=== PATIENT | female | born 1955 | race Two or more races ===

== ENCOUNTER → 2017-03-14 | Outpatient (REF) | payer BC ==
[2017-03-14 19:28] LABS: ALBUMIN 3.7 GM/DL (3.2-5.2); ALBUMIN/GLOBULIN RATIO 0.86 (1.00-1.93); ALKALINE PHOSPHATASE 108 U/L (45-117); ALT/SGPT 21 U/L (12-78); ANION GAP 7 MEQ/L (8-16); AST/SGOT 18 U/L (15-37); BILIRUBIN,TOTAL 0.3 MG/DL (0.2-1.0); BLOOD UREA NITROGEN 12 MG/DL (7-18); CALCIUM LEVEL 9.3 MG/DL (8.8-10.2); CARBON DIOXIDE LEVEL 33 MEQ/L (21-32); CHLORIDE LEVEL 98 MEQ/L (98-107); CHOLESTEROL LEVEL 233 MG/DL (<200); CREATININE FOR GFR 0.79 MG/DL (0.55-1.02); GLOMERULAR FILTRATION RATE > 60.0 (>45); GLUCOSE, FASTING 80 MG/DL (80-110); SODIUM LEVEL 138 MEQ/L (136-145); TRIGLYCERIDES LEVEL 131 MG/DL (<150)
[2017-03-14 19:43] LABS: BASO # 0.1 10^3/uL (0.0-0.2); BASO % 0.8 % (0.0-1.0); EOS # 0.1 10^3/uL (0.0-0.50); EOS % 1.2 % (0.0-3.0); IMMATURE GRANULOCYTE % 0.5 % (0-0); LYMPH # 2.9 10^3/uL (1.5-4.5); LYMPH % 29.6 % (24.0-44.0); MEAN CORPUSCULAR HEMOGLOBIN 31.6 pg (27.0-33.0); MEAN CORPUSCULAR HGB CONC 32.2 g/dl (32.0-36.5); MEAN CORPUSCULAR VOLUME 98.1 fl (80.0-96.0); MONO # 0.5 10^3/uL (0.0-0.8); MONO % 4.6 % (0.0-5.0); NEUTROPHILS # 6.3 10^3/uL (1.8-7.7); NEUTROPHILS % 63.3 % (36.0-66.0); PLATELET COUNT, AUTOMATED 209 10^3/uL (150-450); PLT CLUMPS? POS FLAG; RED CELL DISTRIBUTION WIDTH 14.1 % (11.5-14.5); WHITE BLOOD COUNT 9.9 10^3/uL (4.0-10.0)
== END ==
LOC: M SFHCADAM 10:25
PROVIDERS: ATTEND Physician Assistant Medical
DX: E66.01 Morbid (severe) obesity due to excess calories (principal); F17.210 Nicotine dependence, cigarettes, uncomplicated

== ENCOUNTER → 2017-03-14 | Outpatient (CLI) | payer BC ==
--- NOTE | 2017-03-14 14:27 | REP ---
PA and lateral chest: There are no comparisons. There are no infiltrates or effusions. There are no masses. The lung norris are clear. Cardiac size is normal. The tiera, mediastinum, and bony thorax are unremarkable for patient age. Impression: Negative PA and lateral chest. Signed by Trino Sandres MD 03/14/2017 02:18 P
== END ==
LOC: M ADAMS 11:24
PROVIDERS: ATTEND Physician Assistant Medical
DX: F17.210 Nicotine dependence, cigarettes, uncomplicated (principal)

== ENCOUNTER → 2017-05-22 | Outpatient (REF) | payer BC ==
[2017-05-22 20:38] LABS: FREE T4 0.74 NG/DL (0.76-1.46)
== END ==
LOC: M SFHCADAM 11:46
PROVIDERS: ATTEND Physician Assistant Medical
DX: E03.9 Hypothyroidism, unspecified (principal)

== ENCOUNTER → 2019-10-12 | Outpatient (REF) | payer BC | LOC: M SFHCWAGY 08:34 | PROVIDERS: ATTEND Nurse Practitioner Women's Health | DX: N95.0 Postmenopausal bleeding (principal) | CPT/HCPCS: 87624; G0123 ==

== ENCOUNTER 2020-07-08 16:11 | Inpatient (IN) | payer BC ==
[~2020-07-08] VITALS: Ht 157.5 cm; Wt 84.5 kg
[2020-07-08] MEDS ORDERED: ISOVUE-370 76% 100ML VIAL As Ordered ONE (16:31)
--- NOTE | 2020-07-08 17:05 | REP ---
INDICATION: CVA - Nursing interventions must not delay CT. COMPARISON: None. TECHNIQUE: CT BRAIN PERFORMED IN THE AXIAL PLANE. CORONAL RECONSTRUCTION IMAGES ARE PERFORMED. FINDINGS: There is mild atrophy. There is no midline shift or mass effect. There are mild patchy periventricular small vessel ischemic changes the white matter likely chronic in nature. There is no acute intracranial hemorrhage or extra-axial fluid collection. The visualized osseous structures are intact. The visualized paranasal sinuses and mastoid air cells appear clear. There minor vascular calcifications of the carotid siphons. IMPRESSION: No acute intracranial hemorrhage, midline shift or mass effect. Mild chronic changes. <Electronically signed by Trino Lynn > 07/08/20 [id number]
--- NOTE | 2020-07-08 17:12 | REP ---
INDICATION: CVA - Nursing interventions must not delay CT. COMPARISON: None. TECHNIQUE: CT contrast dose: 100 ml of intravenous Isovue 370. CT technique: Helical scanning is acquired. 2 mm high resolution axial images are reformatted. In addition maximal intensity projection, and complex plane multiplanar re-formation images are generated. Surface rendered color 3-D images are generated. FINDINGS: The aortic arch is normal in caliber with mild atherosclerotic calcification. The brachiocephalic artery demonstrates mild calcification at its origin and is widely patent. The right common carotid artery is widely patent. Right internal carotid artery is widely patent. There is no evidence of significant stenosis of the right ICA. The left common carotid artery is widely patent. The left internal carotid artery is widely patent with no significant stenosis. Both vertebral arteries are patent and symmetrical in appearance. Emphysematous changes are noted in both lungs. There are mild degenerative changes of the cervical spine. IMPRESSION: No evidence of occlusion or significant stenosis of the internal carotid arteries bilaterally. <Electronically signed by Trino Lynn > 07/08/20 2217
[2020-07-08 17:18] LABS: BASO # 0.1 10^3/uL (0.0-0.2); BASO % 0.7 % (0.0-1.0); EOS # 0.2 10^3/uL (0.0-0.5); EOS % 1.7 % (0.0-3.0); HEMATOCRIT 35.6 % (36.0-47.0); HEMOGLOBIN 11.2 g/dl (12.0-15.5); LYMPH # 1.6 10^3/uL (1.5-5.0); LYMPH % 15.3 % (24.0-44.0); MEAN CORPUSCULAR HEMOGLOBIN 30.9 pg (27.0-33.0); MEAN CORPUSCULAR HGB CONC 31.5 g/dl (32.0-36.5); MEAN CORPUSCULAR VOLUME 98.1 fl (80.0-96.0); MONO # 0.6 10^3/uL (0.0-0.8); MONO % 5.5 % (0.0-5.0); NEUTROPHILS # 8.1 10^3/uL (1.5-8.5); NEUTROPHILS % 76.2 % (36.0-66.0); PLATELET COUNT, AUTOMATED 359 10^3/uL (150-450); RED BLOOD COUNT 3.63 10^6/uL (4.00-5.40); WHITE BLOOD COUNT 10.6 10^3/uL (4.0-10.0)
--- NOTE | 2020-07-08 17:18 | REP ---
INDICATION: CVA - Nursing interventions must not delay CT. COMPARISON: None. TECHNIQUE: CT contrast dose: 100 ml of intravenous Isovue 370. CT technique: Helical scanning is acquired. 2 mm axial images are reformatted. Maximal intensity projection and multiplanar re-formation images are generated along with 3-D surface rendered color imaging which is viewed rotational. FINDINGS: The intracranial internal carotid arteries are symmetrical and widely patent bilaterally. The anterior, middle and posterior cerebral arteries are symmetrical and widely patent with no definite intracranial arterial stenosis and no evidence of intracranial arterial occlusion. Anterior communicating arteries are symmetrical and patent. Basilar artery is patent with no stenosis or occlusion. There is no definite aneurysm or AVM. IMPRESSION: No evidence of intracranial major vessel occlusion or significant stenosis. <Electronically signed by Trino Lynn > 07/08/20 [id number]
[2020-07-08 17:23] LABS: PARTIAL THROMBOPLASTIN TIME 23.9 SECONDS (24.2-38.5)
--- NOTE | 2020-07-08 17:31 | ECGEPIP ---
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
[2020-07-08 17:32] LABS: CK-MB VALUE MASS 1.8 NG/ML (<3.6); CPK CREATINE PHOSPHOKINASE 118 U/L (26-192); MB/CK RELATIVE INDEX 1.53 (< OR =4); TROPONIN I < 0.02 NG/ML (< 0.10)
[2020-07-08] MEDS ORDERED: ASPI81CH33 PO (17:45)
[2020-07-08] MEDS ORDERED: LIPI80TA PO (17:46)
[2020-07-08] MEDS ORDERED: CLOP75TA2 PO (17:46)
[2020-07-08] MEDS ORDERED: LEVO50CA PO (17:47)
[2020-07-08] MEDS ORDERED: NORE1TAB12 PO (17:48)
[2020-07-08] MEDS ORDERED: NICO7PA TOP (17:48)
--- NOTE | 2020-07-08 17:52 | REP ---
INDICATION: CVA. COMPARISON: 03/14/2017. TECHNIQUE: SINGLE PORTABLE AP VIEW OF THE CHEST WAS PERFORMED. FINDINGS: There is no acute infiltrate. There is mild interstitial fibrotic change bilaterally. There is mild cardiomegaly. The mediastinal silhouette is unremarkable. IMPRESSION: NO ACUTE PULMONARY DISEASE. Mild cardiomegaly. <Electronically signed by Trino Lynn > 07/08/20 [id number]
[2020-07-08 18:00] LABS: RSV AMPLIFICATION NEGATIVE (NEGATIVE)
[2020-07-08] MEDS ORDERED: POTASSIUM CHLORIDE 10 MEQ SR TABLET PO ONE (18:00)
[2020-07-08 18:03] LABS: INR 0.95; PROTHROMBIN TIME 12.9 SECONDS (12.5-14.3)
[2020-07-08] MEDS ORDERED: SYNT50TA PO (18:09)
[2020-07-08] MEDS ORDERED: NORE5TAB PO (18:09)
--- NOTE | 2020-07-08 19:51 | HPEPDOC ---
[facility] Medical History & Physical Date of Admission Jul 08, 2020 Date of Service: Jul 08, 2020 History and Physical CHIEF COMPLAINT: slurred speech, b/l ue and le numbness at 3-3:30pm HISTORY OF PRESENT ILLNESS: 64 y/o F transferred from [facility] ER to [facility] 2 weeks ago for Facial drooping, slurred speech / left anterofrontal CVA, and sent home w/o residual neurologic deficits with ASA and plavix. Prior to hospital discharge, pt developed vaginal bleeding, found to have a large uterine mass, evaluated by [facility] shirt creaser s/p hysteroscopy with biopsy. Pt was instructed to call on Friday07/10/20 to discuss results of possible malignancy. Patient lives with her , daughter,and was noted to have slurred speech around 1pm when talking to her daughter without facial drooping or drooling. At around 3-3:30 pm, patient was in the living room, sitting, watching TV when she c/o b/l hand and b/l le numbness. Another daughter who was just heading home from work called and told her sister to call EMS to bring the patient to the ER. She has been compliant with her ASA and plavix and has not missed a dose. When EMS arrived,patient had difficulty getting up because both legs felt numb. She had resolution of her symptoms when she arrived in the ER. CT head angio, CT brain negative for CVA. glucose 128. EKG-sinus 72 bpm. Hospitalist was called to admit for recurrent TIA and to r/o CVA. 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 SOCIAL HISTORY: lives at home w , and daughter. full code . 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 previous smoker, quit 2weeks ago. denies etoh or recreational drug use FAMILY HISTORY: Father: cad, dm2, left bka due to complications of DM, Mother:cva, age 62 ALLERGIES: Please see below. REVIEW OF SYSTEMS:12point ROS negative aside from +findings on HPI HOME MEDICATIONS: Please see below. PHYSICAL EXAMINATION: VITAL SIGNS: see below GENERAL APPEARANCE: aaox3 no slurring of speech or facial drooping no distress. answers questions appropriately HEENT: PERRLA EOMI face symmetric tongue is midline. no jvd,thyromegaly, or cervical LAD CARDIOVASCULAR: S1S2 RRR no murmurs noted LUNGS: AEBE CTAB no wheezing, rales, or rhonchi ABDOMEN: +bs soft obese nontender nondistended no HSM EXTREMITIES: no cyanosis or clubbing NEUROLOGICAL: no facial asymmetry no drooling PERRLA EOMI no dysmetria on finger to nose testing dtr's intact b/l ue, le. no pronator drift. motor function 5/5 x 4 extremities no sensory disturbance b/l UE/LE. LABORATORY DATA: See below. 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 COMPARISON: None. TECHNIQUE: CT BRAIN PERFORMED IN THE AXIAL PLANE. CORONAL RECONSTRUCTION IMAGES ARE PERFORMED. FINDINGS: There is mild atrophy. There is no midline shift or mass effect. There are mild patchy periventricular small vessel ischemic changes the white matter likely chronic in nature. There is no acute intracranial hemorrhage or extra-axial fluid collection. The visualized osseous structures are intact. The visualized paranasal sinuses and mastoid air cells appear clear. There minor vascular calcifications of the carotid siphons. IMPRESSION: No acute intracranial hemorrhage, midline shift or mass effect. Mild chronic changes. <Electronically signed by Trino Lynn > 07/08/20 1701 07/08/20 [id number]: Trino Lynn MD, MD 07/08/20 165 DT: OLGA 07/08/20 1701 DS: DEAN 07/08/201656 CTA NECK 07/08/20 INDICATION: CVA - Nursing interventions must not delay CT. COMPARISON: None. TECHNIQUE: CT contrast dose: 100 ml of intravenous Isovue 370. CT technique: Helical scanning is acquired. 2 mm high resolution axial images are reformatted. In addition maximal intensity projection, and complex plane multiplanar re-formation images are generated. Surface rendered color 3-D images are generated. The aortic arch is normal in caliber with mild atherosclerotic calcification. The brachiocephalic artery demonstrates mild calcification at its origin and is widely patent. The right common carotid artery is widely patent. Right internal carotid artery is widely patent. There is no evidence of significant stenosis of the right ICA. The left common carotid artery is widely patent. The left internal carson tid artery is widely patent with no significant stenosis. Both vertebral arteries are patent and symmetrical in appearance. Emphysematous changes are noted in both lungs. There are mild degenerative changes of the cervical spine. IMPRESSION: No evidence of occlusion or significant stenosis of the internal carotid arteries bilaterally. <Electronically signed by Trino Lynn > 07/08/20 1708 07/08/20 CT ANGIO HEAD INDICATION: CVA - Nursing interventions must not delay CT. COMPARISON: None. TECHNIQUE: CT contrast dose: 100 ml of intravenous Isovue 370. CT technique: Helical scanning is acquired. 2 mm axial images are reformatted. Maximal intensity projection and multiplanar re-formation images are generated along with 3-D surface rendered color imaging which is viewed rotational. FINDINGS: The intracranial internal carotid arteries are symmetrical and widely patent bilaterally. The anterior, middle and posterior cerebral arteries are symmetrical and widely patent with no definite intracranial arterial stenosis and no evidence of intracranial arterial occlusion. Anterior communicating arteries are symmetrical and patent. Basilar artery is patent with no stenosis or occlusion. There is no definite aneurysm or AVM. IMPRESSION: No evidence of intracranial major vessel occlusion or significant stenosis. <Electronically signed by Trino Lynn > 07/08/20 1715 CXR 07/08/20 TECHNIQUE: SINGLE PORTABLE AP VIEW OF THE CHEST WAS PERFORMED. FINDINGS: There is no acute infiltrate. There is mild interstitial fibrotic change bilaterally. There is mild cardiomegaly. The mediastinal silhouette is unremarkable. IMPRESSION: NO ACUTE PULMONARY DISEASE. Mild cardiomegaly. <Electronically signed by Trino Lynn > 07/08/20 0087 ASSESSMENT/PLAN: 64 y/o F transferred from [facility] ER to [facility] 2 weeks ago for Facial drooping, slurred speech / left anterofrontal CVA, and sent home w/o residual neurologic deficits with ASA and plavix. Prior to hospital discharge, pt developed vaginal bleeding, found to have a large uterine mass, evaluated by [facility] shirt creaser s/p hysteroscopy with biopsy. Pt was instructed to call on Friday07/10/20 to discuss results of possible malignancy. Patient lives with her , daughter,and was noted to have slurred speech around 1pm when talking to her daughter without facial drooping or drooling. At around 3-3:30 pm, herminia lindsay was in the living room, sitting, watching TV when she c/o b/l hand and b/l le numbness. Another daughter who was just heading home from work called and told her sister to call EMS to bring the patient to the ER. She has been compliant with her ASA and plavix and has not missed a dose. When EMS arrived,patient had difficulty getting up because both legs felt numb. She had resolution of her symptoms when she arrived in the ER. CT head angio, CT brain negative for CVA. glucose 128. EKG-sinus 72 bpm. Hospitalist was called to admit for recurrent TIA and to r/o CVA. TIA -resolved neurologic symptoms on ED arrival. admitted as an inpatient for two midnights since she will require a transesophageal echo scheduled for Friday by Dr. Flowers to rule out thrombus. telemetry monitoring, continue ASA and plavix despite recent vaginal bleed 2 weeks ago, neurologic checks q4hrs, MRI/MRA brai n/MRA carotids, 2D echo w bubble study, hypercoagulable state workup, Neurology consultation, and obtain [facility] inpt records 2 weeks ago. DVT prophylaxis. statin. -due to recurrent neurologic events, pt should be referred to generator worker Dr. Richmond for implantable event recorder to evaluate for crptogenic stroke to rule out underlying Afib or Aflutter. History of Left Anterofrontal CVA 2weeks ago -no residual neurologic deficits -on ASA and plavix Vaginal Bleed/Uterine Mass -evaluated with biopsy hysteroscopy at [facility]. obtain pathology /cytology report Previous Tobacco Abuse -quit 2 weeks ago. nicotine replacement therapy Dyslipidemia -on statin. check lipid profile Obesity -check a1c, optimize bp control and treat hyperlipidemia Hypothyroidism -resume synthroid. check tsh Cardiomegaly -check 2D echo Varicose Veins -s/p stripping Vitamin D deficiency -resume home meds Diet: 2 gram sodium, low fat low chol diet Code status: full code DVT prophylaxis: lovenox. disposition: 2-3 days. needs GOPAL on Friday afternoon after 5pm (Dr. Bach) Vital Signs Vital Signs Date Time Temp Pulse Resp B/P (MAP) Pulse Ox O2 Delivery O2 Flow Rate FiO2 07/08/20 18:15 163/73 (103) 07/08/20 18:11 69 95 07/08/20 16:56 97.5 23 Laboratory Data Labs 24H Laboratory Tests 2 07/08/20 16:29: POC Glucose (Misc Panel) 128H, POC Sodium (Misc Panel) 141, POC Potassium (Misc Panel) 3.0L, POC Chloride (Misc Panel) 99, POC Total CO2 (Misc Panel) 31.0H, POC Blood Urea Nitrogen (Misc Panel 6L, POC Ionized Calcium (Misc Panel) 4.5, POC Creatinine (Misc Panel) 0.6, POC Hematocrit (Misc Panel) 36.0L 07/08/20 16:46: Immature Granulocyte % (Auto) 0.6, Neutrophils (%) (Auto) 76.2H, Lymphocytes (%) (Auto) 15.3L, Monocytes (%) (Auto) 5.5H, Eosinophils (%) (Auto) 1.7, Basophils (%) (Auto) 0.7, Neutrophils # (Auto) 8.1, Lymphocytes # (Auto) 1.6, Monocytes # (Auto) 0.6, Eosinophils # (Auto) 0.2, Basophils # (Auto) 0.1, Nucleated Red Blood Cells % (auto) 0.0, Prothrombin Time 12.9, Prothromb Time International Ratio 0.95, Activated Partial Thromboplast Time 23.9L, Total Creatine Kinase 118, Creatine Kinase MB 1.8, Creatine Kinase MB Relative Index 1.53, Troponin I < 0.02 07/08/20 16:55: POC Prothrombin Time (Misc) 11.9L, POC INR (Misc) 1.0 07/08/20 16:57: Coronavirus (COVID-19)(PCR) NEGATIVE, Influenza Type A (RT-PCR) NEGATIVE, Influenza Type B (RT-PCR) NEGATIVE, Respiratory Syncytial Virus (PCR) NEGATIVE CBC/BMP Laboratory Tests 07/08/20 16:46 Home Medications Scheduled Aspirin (Aspirin) 81 Mg Tab.chew, 81 MG PO DAILY Atorvastatin Calcium (Lipitor) 80 Mg Tablet, 80 MG PO QHS Clopidogrel Bisulfate (Clopidogrel) 75 Mg Tablet, 75 MG PO DAILY Levothyroxine Sodium (Synthroid) 50 Mcg Tablet, 50 MCG PO DAILY Nicotine (Nicotine Patch) 7 Mg Patch.td24, 1 PATCH TOP DAILY APPLY TO SHOULDER OR UPPER ARM Norethindrone Acetate (Norethindrone Acetate) 5 Mg Tablet, 5 MG PO TID Allergies Coded Allergies: No Known Drug Allergies (Verified Allergy, Unknown, 07/08/20) A-FIB/CHADSVASC A-FIB History Current/History of A-Fib/PAF?: No Current PO Anticoag Therapy: No Age/Risk Factor Scoring CHADSVASC: CHADSVASC Response (Comments) Value Age Risk Factor Age < 65 years old 0 Gender Risk Factor Female 1 Hx of CHF No 0 Hx of HTN Yes 1 Hx of Stroke/TIA/or VTE Yes 2 Hx of Diabetes No 0 Hx of Vascular Disease No 0 Total 4 Treatment Treatment ordered: NONE AJITH LIU MD Jul 08, 2020 19:12
[2020-07-08] MEDS ORDERED: LORazepam 2 MG/ML VIAL IV STA (22:31)
--- NOTE | 2020-07-08 23:20 | REPVR ---
PROCEDURE INFORMATION: Exam: MR Angiogram Head Without Contrast, Arteries Exam date and time: 07/08/2020 11:08 PM Age: 64 years old Clinical indication: Patient HX: HX CVA, hand weakness and confusion that has since subsided; Additional info: TIA TECHNIQUE: Imaging protocol: MR angiogram head without contrast. Exam focused on the arteries. 3D rendering (Not supervised by radiologist): MIP and/or 3D reconstructed images were created by the technologist. COMPARISON: CT ANGIO HEAD 07/08/2020 4:35 PM FINDINGS: Limitations: Patient motion. ANTERIOR CIRCULATION: Right internal carotid artery: Intracranial segment is patent with no significant stenosis. No aneurysm. Right middle cerebral artery: No occlusion or significant stenosis. No aneurysm. Right anterior cerebral artery: No occlusion or significant stenosis. No aneurysm. Left internal carotid artery: Intracranial segment is patent with no significant stenosis. No aneurysm. Left middle cerebral artery: No occlusion or significant stenosis. No aneurysm. Left anterior cerebral artery: No occlusion or significant stenosis. No aneurysm. POSTERIOR CIRCULATION: Right vertebral artery: No occlusion or significant stenosis. No aneurysm. Left vertebral artery: No occlusion or significant stenosis. No aneurysm. Basilar artery: Short segment fenestration at the proximal basilar artery. Right posterior cerebral artery: No occlusion or significant stenosis. No aneurysm. Left posterior cerebral artery: No occlusion or significant stenosis. No aneurysm. IMPRESSION: Patient motion without definite hemodynamically significant stenosis or large vessel occlusion. Electronically signed by: Selwyn Torres On 07/08/2020 23:20:04 PM
--- NOTE | 2020-07-08 23:20 | REPVR ---
PROCEDURE INFORMATION: Exam: MR Head Without Contrast Exam date and time: 07/08/2020 11:08 PM Age: 64 years old Clinical indication: Weakness, extremity; Bilateral; Patient HX: HX CVA, hand weakness and confusion that has since subsided; Additional info: TIA TECHNIQUE: Imaging protocol: MR of the head without contrast. COMPARISON: CT Head without contrast 07/08/2020 4:35 PM FINDINGS: Axial diffusion weighted images obtained. Patient refused additional imaging. No midline shift or intracranial mass effect. No definite extra-axial fluid collection. 4 mm focus of diffusion restriction at the left internal capsule posterior limb. IMPRESSION: 1. Incomplete examination secondary to patient termination of imaging. 2. 4 mm acute/early subacute ischemic infarct at the left internal capsule posterior limb. Electronically signed by: Selwyn Torres On 07/08/2020 23:19:53 PM
[2020-07-08 23:26] VITALS: BP 170/80
[2020-07-09] MEDS: ATORVASTATIN 20 MG TAB PO SCH ×2 (00:06→20:33)
[2020-07-09 04:00] VITALS: BP 164/77
[2020-07-09] MEDS ORDERED: LEVOTHYROXINE 50MCG TABLET (0.05MG) PO SCH (06:00)
[2020-07-09 06:02] LABS: BASO # 0.1 10^3/uL (0.0-0.2); BASO % 0.7 % (0.0-1.0); EOS # 0.2 10^3/uL (0.0-0.5); EOS % 1.5 % (0.0-3.0); HEMATOCRIT 35.5 % (36.0-47.0); HEMOGLOBIN 11.3 g/dl (12.0-15.5); LYMPH # 1.8 10^3/uL (1.5-5.0); LYMPH % 16.8 % (24.0-44.0); MEAN CORPUSCULAR HEMOGLOBIN 31.1 pg (27.0-33.0); MEAN CORPUSCULAR HGB CONC 31.8 g/dl (32.0-36.5); MEAN CORPUSCULAR VOLUME 97.8 fl (80.0-96.0); MONO # 0.5 10^3/uL (0.0-0.8); MONO % 4.8 % (0.0-5.0); NEUTROPHILS # 8.3 10^3/uL (1.5-8.5); NEUTROPHILS % 75.7 % (36.0-66.0); PLATELET COUNT, AUTOMATED 369 10^3/uL (150-450); RED BLOOD COUNT 3.63 10^6/uL (4.00-5.40); WHITE BLOOD COUNT 10.9 10^3/uL (4.0-10.0)
[2020-07-09 06:21] LABS: BLOOD UREA NITROGEN 6 MG/DL (7-18); CALCIUM LEVEL 8.7 MG/DL (8.8-10.2); CARBON DIOXIDE LEVEL 32 MEQ/L (21-32); CHLORIDE LEVEL 105 MEQ/L (98-107); CHOLESTEROL LEVEL 111 MG/DL (<200); CREATININE FOR GFR 0.72 MG/DL (0.55-1.30); GLOMERULAR FILTRATION RATE > 60.0 (>45); GLUCOSE, FASTING 86 MG/DL (70-100); HDL CHOLESTEROL 30 MG/DL (>40); LDL CHOLESTEROL 61 MG/DL (<100); MAGNESIUM LEVEL 1.8 MG/DL (1.8-2.4); NON-HDL-C 81 MG/DL; POTASSIUM SERUM 3.9 MEQ/L (3.5-5.1); SODIUM LEVEL 141 MEQ/L (136-145); TRIGLYCERIDES LEVEL 102 MG/DL (<150)
[2020-07-09 07:51] VITALS: BP 169/79
[2020-07-09] MEDS: CLOPIDOGREL 75 MG TAB PO SCH (08:56)
[2020-07-09] MEDS: ASPIRIN 81 MG CHEW TABLET PO SCH (08:56)
[2020-07-09] MEDS: ENOXAPARIN 40MG/0.4ML SYRINGE (J1650 PER 10MG) SC SCH (08:56)
[2020-07-09] MEDS: NICOTINE 7 MG/24 HR TRANSDERMAL TOP SCH (09:00)
--- NOTE | 2020-07-09 10:12 | IPNPDOC ---
Date Seen The patient was seen on 07/09/20. Progress Note SUBJECTIVE: Overnight, developed right sided weakness including arm,leg, facial droop and slurred speech MRI : acute/subacute lacunar infarct still on asa, plavix. some trouble swallowing. no drooling OBJECTIVE: PHYSICAL EXAMINATION: VITAL SIGNS: see below GENERAL APPEARANCE:aaox 3 slurring of speech + facial drooping no distress. answers questions appropriately HEENT: PERRLA EOMI face asymmetric tongue deviated. no jvd,thyromegaly, or cervical LAD CARDIOVASCULAR: S1S2 RRR no murmurs noted LUNGS: AEBE CTAB no wheezing, rales, or rhonchi ABDOMEN: +bs soft obese nontender nondistended no HSM EXTREMITIES: no cyanosis or clubbing NEUROLOGICAL: no facial asymmetry no drooling PERRLA EOMI dtr's intact b/l ue, le. no pronator drift. motor function 2/4 on right UE and LE +babinski no sensory disturbance b/l UE/LE. LABORATORY DATA: See below. 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 COMPARISON: None. TECHNIQUE: CT BRAIN PERFORMED IN THE AXIAL PLANE. CORONAL RECONSTRUCTION IMAGES ARE PERFORMED. FINDINGS: There is mild atrophy. There is no midline shift or mass effect. There are mild patchy periventricular small vessel ischemic changes the white matter likely chronic in nature. There is no acute intracranial hemorrhage or extra-axial fluid collection. The visualized osseous structures are intact. The visualized paranasal sinuses and mastoid air cells appear clear. There minor vascular calcifications of the carotid siphons. IMPRESSION: No acute intracranial hemorrhage, midline shift or mass effect. Mild chronic changes. <Electronically signed by Trino Lynn > 07/08/20 [id number]: Trino Lynn MD, MD 07/08/201656 DT: OLGA 07/08/201700 DS: DEAN 07/08/201656 CTA NECK 07/08/20 INDICATION: CVA - Nursing interventions must not delay CT. COMPARISON: None. TECHNIQUE: CT contrast dose: 100 ml of intravenous Isovue 370. CT technique: Helical scanning is acquired. 2 mm high resolution axial images are reformatted. In addition maximal intensity projection, and complex plane multiplanar re-formation images are generated. Surface rendered color 3-D images are generated. The aortic arch is normal in caliber with mild atherosclerotic calcification. The brachiocephalic artery demonstrates mild calcification at its origin and is widely patent. The right common carotid artery is widely patent. Right internal carotid artery is widely patent. There is no evidence of significant stenosis of the right ICA. The left common carotid artery is widely patent. The left internal carson tid artery is widely patent with no significant stenosis. Both vertebral arteries are patent and symmetrical in appearance. Emphysematous changes are noted in both lungs. There are mild degenerative changes of the cervical spine. IMPRESSION: No evidence of occlusion or significant stenosis of the internal carotid arteries bilaterally. <Electronically signed by Trino Lynn > 07/08/20 1708 07/08/20 CT ANGIO HEAD INDICATION: CVA - Nursing interventions must not delay CT. COMPARISON: None. TECHNIQUE: CT contrast dose: 100 ml of intravenous Isovue 370. CT technique: Helical scanning is acquired. 2 mm axial images are reformatted. Maximal intensity projection and multiplanar re-formation images are generated along with 3-D surface rendered color imaging which is viewed rotational. FINDINGS: The intracranial internal carotid arteries are symmetrical and widely patent bilaterally. The anterior, middle and posterior cerebral arteries are symmetrical and widely patent with no definite intracranial arterial stenosis and no evidence of intracranial arterial occlusion. Anterior communicating arteries are symmetrical and patent. Basilar artery is patent with no stenosis or occlusion. There is no definite aneurysm or AVM. IMPRESSION: No evidence of intracranial major vessel occlusion or significant stenosis. <Electronically signed by Trino Lynn > 07/08/20 1715 CXR 07/08/20 TECHNIQUE: SINGLE PORTABLE AP VIEW OF THE CHEST WAS PERFORMED. FINDINGS: There is no acute infiltrate. There is mild interstitial fibrotic change bilaterally. There is mild cardiomegaly. The mediastinal silhouette is unremarkable. IMPRESSION: NO ACUTE PULMONARY DISEASE. Mild cardiomegaly. <Electronically signed by Trino Lynn > 07/08/20 9040 ASSESSMENT/PLAN: 64 y/o F transferred from [facility] ER to [facility] 2 weeks ago for Facial drooping, slurred speech / left anterofrontal CVA, and sent home w/o residual neurologic deficits with ASA and plavix. Prior to hospital discharge, pt developed vaginal bleeding, found to have a large uterine mass, evaluated by [facility] membership administrator s/p hysteroscopy with biopsy. Pt was instructed to call on Friday07/10/20 to discuss results of possible malignancy. Patient lives with her , daughter,and was noted to have slurred speech around 1pm when talking to her daughter without facial drooping or drooling. At around 3-3:30 pm, herminia lindsay was in the living room, sitting, watching TV when she c/o b/l hand and b/l le numbness. Another daughter who was just heading home from work called and told her sister to call EMS to bring the patient to the ER. She has been compliant with her ASA and plavix and has not missed a dose. When EMS arrived,patient had difficulty getting up because both legs felt numb. She had resolution of her symptoms when she arrived in the ER. CT head angio, CT brain negative for CVA. glucose 128. EKG-sinus 72 bpm. Hospitalist was called to admit for recurrent TIA and to r/o CVA. CVA with Right hemiparesis / slurred speech/facial droop - continue ASA and plavix despite recent vaginal bleed 2 weeks ago, neurologic checks q4hrs -MRI brain: acute subacute lacunar infarct -allow for permissive hypertension for the next 24 hrs. -2D echo w bubble study, hypercoagulable state workup, Neurology consultation, and obtain [facility] inpt records 2 weeks ago. DVT prophylaxis. statin. -due to recurrent neurologic events, pt should be referred to chronic disease epidemiologist Dr. Richmond for implantable event recorder to evaluate for crptogenic stroke to rule out underlying Afib or Aflutter. -Transesophageal Echo Friday after 5pm per Dr. Flowers. npo after midnight -speech /swallow eval to r/o aspiration. History of Left Anterofrontal CVA 2weeks ago -on ASA and plavix Vaginal Bleed/Uterine Mass -evaluated with biopsy hysteroscopy at [facility]. obtain pathology /cytology report Previous Tobacco Abuse -quit 2 weeks ago. nicotine replacement therapy Dyslipidemia -on statin. check lipid profile Obesity -check a1c, optimize bp control and treat hyperlipidemia Hypothyroidism -resume synthroid. check tsh Cardiomegaly -check 2D echo Varicose Veins -s/p stripping Vitamin D deficiency -resume home meds Diet: 2 gram sodium, low fat low chol diet Code status: full code DVT prophylaxis: lovenox. VS, I&O, 24H, Fishbone Vital Signs/I&O Vital Signs Date Time Temp Pulse Resp B/P (MAP) Pulse Ox O2 Delivery O2 Flow Rate FiO2 07/09/20 07:51 99.3 73 24 169/79 (109) 93 Room Air I&O- Last 24 Hours up to 6 AM 07/09/20 06:00 Intake Total 0 ml Output Total 200 ml Balance -200 ml Laboratory Data 24H LABS Laboratory Tests 2 07/08/20 16:29: POC Glucose (Misc Panel) 128H, POC Sodium (Misc Panel) 141, POC Potassium (Misc Panel) 3.0L, POC Chloride (Misc Panel) 99, POC Total CO2 (Misc Panel) 31.0H, POC Blood Urea Nitrogen (Misc Panel 6L, POC Ionized Calcium (Misc Panel) 4.5, POC Creatinine (Misc Panel) 0.6, POC Hematocrit (Misc Panel) 36.0L 07/08/20 16:46: Immature Granulocyte % (Auto) 0.6, Neutrophils (%) (Auto) 76.2H, Lymphocytes (%) (Auto) 15.3L, Monocytes (%) (Auto) 5.5H, Eosinophils (%) (Auto) 1.7, Basophils (%) (Auto) 0.7, Neutrophils # (Auto) 8.1, Lymphocytes # (Auto) 1.6, Monocytes # (Auto) 0.6, Eosinophils # (Auto) 0.2, Basophils # (Auto) 0.1, Nucleated Red Blood Cells % (auto) 0.0, Prothrombin Time 12.9, Prothromb Time International Ratio 0.95, Activated Partial Thromboplast Time 23.9L, Total Creatine Kinase 118 , Creatine Kinase MB 1.8, Creatine Kinase MB Relative Index 1.53, Troponin I < 0.02 07/08/20 16:55: POC Prothrombin Time (Misc) 11.9L, POC INR (Misc) 1.0 07/08/20 16:57: Coronavirus (COVID-19)(PCR) NEGATIVE, Influenza Type A (RT-PCR) NEGATIVE, Influenza Type B (RT-PCR) NEGATIVE, Respiratory Syncytial Virus (PCR) NEGATIVE 07/08/20 19:17: Erythrocyte Sedimentation Rate 28, Magnesium Level 1.8, Rheumatoid Factor < 10.0 07/09/20 05:13: Magnesium Level 1.8, Immature Granulocyte % (Auto) 0.5, Neutrophils (%) (Auto) 75.7H, Lymphocytes (%) (Auto) 16.8L, Monocytes (%) (Auto) 4.8, Eosinophils (%) (Auto) 1.5, Basophils (%) (Auto) 0.7, Neutrophils # (Auto) 8.3, Lymphocytes # (Auto) 1.8, Monocytes # (Auto) 0.5, Eosinophils # (Auto) 0.2, Basophils # (Auto) 0.1, Nucleated Red Blood Cells % (auto) 0.0, Anion Gap 4L, Glomerular Filtration Rate > 60.0, Calcium Level 8.7L, Triglycerides Level 102, Total Cholesterol 111, LDL Cholesterol 61, Non-HDL Cholesterol (LDL + VLDL) 81, Total HDL Cholesterol 30L, Cholesterol/HDL Ratio 3.700, Thyroid Stimulating Hormone (TSH) 9.340H CBC/BMP Laboratory Tests 07/08/20 16:46 07/09/20 05:13 AJITH LIU MD Jul 09, 2020 10:12
[2020-07-09 10:21] LABS: HEMOGLOBIN A1c 5.5 %
[2020-07-09 11:53] VITALS: BP 187/82
[2020-07-09 13:12] VITALS: BP 184/70
[2020-07-09] MEDS ORDERED: ACETAMINOPHEN TAB 650MG DOSE (2X325MG) PO PRN (15:45)
[2020-07-09] MEDS: ACETAMINOPHEN TAB 650MG DOSE (2X325MG) PO PRN ×2 (15:50→20:33)
[2020-07-09 16:00] VITALS: BP 140/78
[2020-07-09] MEDS ORDERED: ACETAMINOPHEN TAB 650MG DOSE (2X325MG) PO ONE (16:00)
--- NOTE | 2020-07-09 18:24 | CR ---
CONSULTATION DATE: 07/09/2020 REFERRING PHYSICIAN: Dr. Pooja Zaman MD REASON FOR CONSULTATION: Slurred speech and right arm and leg numbness, weakness. HISTORY OF PRESENT ILLNESS: Marga Randolph is a 64-year-old woman who had an episode of right face drooping, slurred speech, was thought to have left anterior frontal stroke but patient states by the time she reached [facility], her symptoms had resolved. She was transferred from [facility] emergency department to [facility] at that time. The patient developed vaginal bleeding and was found to have a large uterine mass and was seen by [facility] and had hysteroscopy with biopsy. She was instructed to call this Friday for the results due to concern for malignancy. The patient states that her neurological symptoms were nonexistent until the day before yesterday when she developed slurred speech and had right arm and leg numbness, tingling and weakness. She did not have slurred speech. She came to [facility] emergency department. Dr. Lynn called me that her symptoms had completely resolved and her NIHSS score was zero. The patient states that she has been taking her aspirin and Plavix and has not missed doses of her medicines. When I saw her today, the patient appears to have right-sided facial droop affecting right lower face in upper motor neuron type distribution with numbness, weakness of right arm and leg and slight dysarthria. She denies any headaches, neck or back pain, dysphagia, diplopia, falls or loss of consciousness. PAST MEDICAL HISTORY: 1. TIA in June, with right-sided weakness, facial droop and trouble speaking. According to Dr. Lynn, no MRI scan of brain was done at [facility] and CT scans ruled out stroke at [facility]. CT angiogram of head and neck was unremarkable two weeks ago. 2. Vaginal bleeding with uterine mass. 3. Obesity. 4. Tobacco abuse. 5. Hypothyroidism. 6. Varicose veins. 7. Hypertension. SOCIAL HISTORY: She lives at home with her and daughter. 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 FAMILY HISTORY: Father with history of coronary artery disease, diabetes and mother with history of CVA and father had left below knee amputation due to diabetes, his disease. REVIEW OF SYSTEMS: All systems were reviewed and were found to be noncontributory except as mentioned in history of present illness. HOME MEDICATIONS: 1. Aspirin 81 mg p.o. daily. 2. Plavix 75 mg. p.o. daily. 3. Lipitor 80 mg p.o. daily. 4. Levothyroxine 50 mcg p.o. daily. 5. Norethindrone 5 mg p.o. t.i.d. ALLERGIES: None. PHYSICAL EXAMINATION: VITAL SIGNS: Temperature 99.3, pulse 73, respiratory rate 14, blood pressure 169/77, 93% saturation on room air. HEART: Regular rate and rhythm. LUNGS: Clear to auscultation. ABDOMEN: Soft, nontender, nondistended. EXTREMITIES: No pedal edema. MUSCULOSKELETAL: No abnormalities. SKIN: No rash. NEUROLOGICAL: No signs of meningeal irritation. No nystagmus, dysmetria on the left side. The patient is awake, alert, oriented to place, person and time. She has dysarthria of speech. Recent and distant memory is intact. Extraocular muscles are intact. She has right-sided upper motor neuron type facial weakness affecting the right lower face. Tongue and uvula are midline. Strength in her right hand is 2/5 and right arm is 3/5 and right leg is 4-/5. Deep tendon reflexes are 2+ in arms. Right plantar is upgoing. Left plantar is downgoing. Gait was not tested. She has right-sided dysmetria on finger to nose testing. DIAGNOSTIC STUDIES: MRI scan of brain was reviewed and showed a small left internal capsule ischemic stroke. CT angiography of head and neck was unremarkable. MRA, brain was also reportedly unremarkable. CBC showed WBC is 10.9, hematocrit 35.5, platelet count 369, ESR 28, LDL 61, HDL 30, TSH 9.3. ASSESSMENT: 1. Left internal capsule small lacunar ischemic stroke. 2. TIA or stroke in June, for which patient was admitted at [facility]. 3. Hypertension and dyslipidemia. PLAN: 1. I recommended Dr. Zaman to speak with cardiology for a transesophageal echocardiogram. Dr. Richmond will decide about loop recorder as well. 2. Aspirin 81 mg p.o. daily and Plavix 75 mg p.o. daily. 3. Lipitor 80 mg p.o. daily. 4. Physical, occupational therapy and rehabilitation. 5. Keep systolic blood pressure below 180 and diastolic blood pressure below 90. 6. Follow with our office in 1-2 weeks after hospital discharge.
[2020-07-09 20:00] VITALS: BP 168/102
[2020-07-10] VITALS: BP 166/72
[2020-07-10 04:00] VITALS: BP 158/72
[2020-07-10 05:00] LABS: BASO # 0.1 10^3/uL (0.0-0.2); EOS # 0.2 10^3/uL (0.0-0.5); EOS % 2.8 % (0.0-3.0); HEMATOCRIT 36.5 % (36.0-47.0); HEMOGLOBIN 11.5 g/dl (12.0-15.5); LYMPH # 1.5 10^3/uL (1.5-5.0); LYMPH % 18.1 % (24.0-44.0); MEAN CORPUSCULAR HEMOGLOBIN 30.6 pg (27.0-33.0); MEAN CORPUSCULAR HGB CONC 31.5 g/dl (32.0-36.5); MEAN CORPUSCULAR VOLUME 97.1 fl (80.0-96.0); MONO # 0.5 10^3/uL (0.0-0.8); MONO % 5.6 % (0.0-5.0); PLATELET COUNT, AUTOMATED 353 10^3/uL (150-450); RED BLOOD COUNT 3.76 10^6/uL (4.00-5.40); WHITE BLOOD COUNT 8.4 10^3/uL (4.0-10.0)
[2020-07-10 05:19] LABS: BLOOD UREA NITROGEN 8 MG/DL (7-18); CALCIUM LEVEL 8.4 MG/DL (8.8-10.2); CARBON DIOXIDE LEVEL 31 MEQ/L (21-32); CHLORIDE LEVEL 103 MEQ/L (98-107); CREATININE FOR GFR 0.69 MG/DL (0.55-1.30); GLOMERULAR FILTRATION RATE > 60.0 (>45); GLUCOSE, FASTING 78 MG/DL (70-100); MAGNESIUM LEVEL 1.9 MG/DL (1.8-2.4); POTASSIUM SERUM 3.3 MEQ/L (3.5-5.1); SODIUM LEVEL 139 MEQ/L (136-145)
[2020-07-10] MEDS: LEVOTHYROXINE 62.5MCG PER 1/2 TAB (0.0625MG) PO SCH (05:41)
[2020-07-10 08:00] VITALS: BP 168/88
[2020-07-10] MEDS ORDERED: MAG SULF 1GM/100ML (MAG RUN) 1 GM in IV 1 EA IV ONE (08:00)
[2020-07-10] MEDS ORDERED: POTASSIUM CHLORIDE 10 MEQ SR TABLET PO ONE (08:00)
[2020-07-10] MEDS ORDERED: LEVALBUTEROL 1.25 MG/0.5 ML CONCENTRATE NEB NEB ONE (08:30)
--- NOTE | 2020-07-10 08:30 | IPNPDOC ---
Date Seen The patient was seen on 07/10/20. Progress Note SUBJECTIVE: c/o dysphagia and sob this am. no fever. productive cough of white sputum. npo for GOPAL still w persistent right ue/le weakness left internal capsule infarct in posterior limb on MRI brain OBJECTIVE: PHYSICAL EXAMINATION: VITAL SIGNS: see below GENERAL APPEARANCE:aaox 3 slurring of speech + facial drooping no distress. answers questions appropriately hard to understand HEENT: PERRLA EOMI face asymmetric tongue deviated. no jvd,thyromegaly, or cervical LAD CARDIOVASCULAR: S1S2 RRR no murmurs noted LUNGS:diminished breath sounds.fine crepitations right base. ABDOMEN: +bs soft obese nontender nondistended no HSM EXTREMITIES: no cyanosis or clubbing NEUROLOGICAL: no facial asymmetry no drooling PERRLA EOMI dtr's intact b/l ue, le. no pronator drift. motor function 2/4 on right UE and LE +babinski no sensory disturbance b/l UE/LE. LABORATORY DATA: See below. 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 COMPARISON: None. TECHNIQUE: CT BRAIN PERFORMED IN THE AXIAL PLANE. CORONAL RECONSTRUCTION IMAGES ARE PERFO RMED. FINDINGS: There is mild atrophy. There is no midline shift or mass effect. There are mild patchy periventricular small vessel ischemic changes the white matter likely chronic in nature. There is no acute intracranial hemorrhage or extra-axial fluid collection. The visualized osseous structures are intact. The visualized paranasal sinuses and mastoid air cells appear clear. There minor vascular calcifications of the carotid siphons. IMPRESSION: No acute intracranial hemorrhage, midline shift or mass effect. Mild chronic changes. <Electronically signed by Trino Lynn > 07/08/20 [id number]: Trino Lynn MD, MD 07/08/201656 DT: OLGA 07/08/201700 DS: DEAN 07/08/201656 CTA NECK 07/08/20 INDICATION: CVA - Nursing interventions must not delay CT. COMPARISON: None. TECHNIQUE: CT contrast dose: 100 ml of intravenous Isovue 370. CT technique: Helical scanning is acquired. 2 mm high resolution axial images are reformatted. In addition maximal intensity projection, and complex plane multiplanar re-formation images are generated. Surface rendered color 3-D images are generated. The aortic arch is normal in caliber with mild atherosclerotic calcification. The brachiocephalic artery demonstrates mild calcification at its origin and is widely patent. The right common carotid artery is widely patent. Right internal carotid artery is widely patent. There is no evidence of significant stenosis of the right ICA. The left common carotid artery is widely patent. The left internal carotid artery is widely patent with no significant stenosis. Both vertebral arteries are patent and symmetrical in appearance. Emphysematous changes are noted in both lungs. There are mild degenerative changes of the cervical spine. IMPRESSION: No evidence of occlusion or significant stenosis of the internal carotid arteries bilaterally. <Electronically signed by Trino Lynn > 07/08/20 1708 07/08/20 CT ANGIO HEAD INDICATION: CVA - Nursing interventions must not delay CT. COMPARISON: None. TECHNIQUE: CT contrast dose: 100 ml of intravenous Isovue 370. CT technique: Helical scanning is acquired. 2 mm axial images are reformatted. Maximal intensity projection and multiplanar re-formation images are generated along with 3-D surface rendered color imaging which is viewed rotational. FINDINGS: The intracranial internal carotid arteries are symmetrical and widely patent bilaterally. The anterior, middle and posterior cerebral arteries are symmetrical and widely patent with no definite intracranial arterial stenosis and no evidence of intracranial arterial occlusion. Anterior communicating arteries are symmetrical and patent. Basilar artery is patent with no stenosis or occlusion. There is no definite aneurysm or AVM. IMPRESSION: No evidence of intracranial major vessel occlusion or significant stenosis. <Electronically signed by Trino Lynn > 07/08/20 1715 CXR 07/08/20 TECHNIQUE: SINGLE PORTABLE AP VIEW OF THE CHEST WAS PERFORMED. FINDINGS: There is no acute infiltrate. There is mild interstitial fibrotic change bilaterally. There is mild cardiomegaly. The mediastinal silhouette is unremarkable. IMPRESSION: NO ACUTE PULMONARY DISEASE. Mild cardiomegaly. <Electronically signed by Trino Lynn > 07/08/20 1748 Exam: MR Head Without Contrast Exam date and time: 07/08/2020 11:08 PM Age: 64 years old Clinical indication: Weakness, extremity; Bilateral; Patient HX: HX CVA, hand weakness and confusion that has since subsided; Additional info: TIA TECHNIQUE: Imaging protocol: MR of the head without contrast. COMPARISON: CT Head without contrast 07/08/2020 4:35 PM FINDINGS: Axial diffusion weighted images obtained. Patient refused additional imaging. No midline shift or intracranial mass effect. No definite extra-axial fluid collection. 4 mm focus of diffusion restriction at the left internal capsule posterior limb. IMPRESSION: 1. Incomplete examination secondary to patient termination of imaging. 2. 4 mm acute/early subacute ischemic infarct at the left internal capsule posterior limb. Electronically signed by: Selwyn Torres On 07/08/2020 23:19:53 PM ASSESSMENT/PLAN: 64 y/o F transferred from [facility] ER to [facility] 2 weeks ago for Facial drooping, slurred speech / left anterofrontal CVA, and sent home w/o residual neurologic deficits with ASA and plavix. 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 Pt was instructed to call on Friday07/10/20 to discuss results of possible malignancy. Patient lives with her , daughter,and was noted to have slurred speech around 1pm when talking to her daughter without facial drooping or drooling. At around 3-3:30 pm, loly ent was in the living room, sitting, watching TV when she c/o b/l hand and b/l le numbness. Another daughter who was just heading home from work called and told her sister to call EMS to bring the patient to the ER. She has been compliant with her ASA and plavix and has not missed a dose. When EMS arrived,patient had difficulty getting up because both legs felt numb. She had resolution of her symptoms when she arrived in the ER. CT head angio, CT brain negative for CVA. glucose 128. EKG-sinus 72 bpm. Hospitalist was called to admit for recurrent TIA and to r/o CVA. CVA with Right hemiparesis / slurred speech/facial droop - continue ASA and plavix despite recent vaginal bleed 2 weeks ago, neurologic checks q4hrs -MRI brain: acute [id number] left internal capsule posterior limb infarct -per neurology, keep sbp<180mmhg -2D echo w bubble study, hypercoagulable state workup, Neurology consultation, and obtain [facility] inpt records 2 weeks ago. DVT prophylaxis. statin. -due to recurrent neurologic events, pt should be referred to dairy processing equipment operator Dr. Richmond for implantable event recorder to evaluate for crptogenic stroke to rule out underlying Afib or Aflutter. -Transesophageal Echo Friday after 5pm per Dr. Flowers. npo after midnight -speech /swallow eval to r/o aspiration. SOB -possible aspiration from cva and dysphagia -swallow eval to r/o aspiration -npo for now -check cxr pa and lateral History of Left Anterofrontal CVA 2weeks ago -on ASA and plavix Vaginal Bleed/Uterine Mass -evaluated with biopsy hysteroscopy at [facility]. obtain pathology /cytology report Previous Tobacco Abuse -quit 2 weeks ago. nicotine replacement therapy Dyslipidemia -on statin. reviewed lipid profile Obesity - optimized bp control and treating hyperlipidemia Hypothyroidism -resumed synthroid. reviewed tsh Cardiomegaly -echo pending report Varicose Veins -s/p stripping Vitamin D deficiency -resume home meds Diet:npo for GOPAL. awaiting speech and swallow study for dysphagia Code status: full code DVT prophylaxis: lovenox. VS, I&O, 24H, Fishbone Vital Signs/I&O Vital Signs Date Time Temp Pulse Resp B/P (MAP) Pulse Ox O2 Delivery O2 Flow Rate FiO2 07/10/20 04:00 96.5 68 24 158/72 (100) 93 Room Air 07/10/20 04:00 1.0 I&O- Last 24 Hours up to 6 AM 07/10/20 06:00 Intake Total 600 ml Output Total 600 ml Balance 0 ml Laboratory Data 24H LABS Laboratory Tests 2 07/09/20 11:41: 07/10/20 04:38: Immature Granulocyte % (Auto) 0.5, Neutrophils (%) (Auto) 72.0H, Lymphocytes (%) (Auto) 18.1L, Monocytes (%) (Auto) 5.6H, Eosinophils (%) (Auto) 2.8, Basophils (%) (Auto) 1.0, Neutrophils # (Auto) 6.0, Lymphocytes # (Auto) 1.5, Monocytes # (Auto) 0.5, Eosinophils # (Auto) 0.2, Basophils # (Auto) 0.1, Nucleated Red Blood Cells % (auto) 0.0, Anion Gap 5L, Glomerular Filtration Rate > 60.0, Calcium Level 8.4L, Magnesium Level 1.9 CBC/BMP Laboratory Tests 07/10/20 04:38 AJITH LIU MD Jul 10, 2020 08:27
[2020-07-10] MEDS: CLOPIDOGREL 75 MG TAB PO SCH (08:48)
[2020-07-10] MEDS: ASPIRIN 81 MG CHEW TABLET PO SCH (08:48)
[2020-07-10] MEDS: ENOXAPARIN 40MG/0.4ML SYRINGE (J1650 PER 10MG) SC SCH (08:48)
[2020-07-10 08:57] LABS: C REACTIVE PROTEIN QUANTITATIV 1.39 MG/DL (0.00-0.30); NT-PRO BNP 868 PG/ML (<125)
[2020-07-10] MEDS: NICOTINE 7 MG/24 HR TRANSDERMAL TOP SCH (09:00)
[2020-07-10] MEDS ORDERED: FLUBLOK(EGG FREE)(QUAD)INFLUENZA VACC 0.5ML SYRINGE 18YRS & OLDER IM ONE (09:00)
[2020-07-10] MEDS ORDERED: SLF 3 ML SYR IV PRN (10:00)
[2020-07-10 10:27] LABS: ERYTHROCYTE SEDIMENTATION RATE 27 mm/hr (0-30)
[2020-07-10 12:00] VITALS: BP 162/90
--- NOTE | 2020-07-10 12:12 | REP ---
INDICATION: cva dysphagia sob r/o aspiration pneumonitis vs pneumonia. COMPARISON: Comparison chest x-ray July 08, 2020. TECHNIQUE: Three views... FINDINGS: The lungs are somewhat hyperinflated but free of infiltrate. Heart is borderline unchanged. Pulmonary vasculature is not increased. Pleural angles are sharp. There are mild degenerative changes in the thoracic spine. IMPRESSION: Evidence of hyperinflation and COPD. No acute infiltrate. Borderline heart size.. <Electronically signed by Arya Balderas > 07/10/20 0430
[2020-07-10] MEDS: LEVALBUTEROL 1.25 MG/0.5 ML CONCENTRATE NEB INH SCH ×3 (13:22→20:05)
[2020-07-10] MEDS: SLF 3 ML SYR IV SCH ×2 (14:00→20:39)
[2020-07-10 16:00] VITALS: BP 168/98
[2020-07-10] MEDS ORDERED: LIDOCAINE VISCOUS 2% SOLN 15ML UDC As Ordered ONE (17:59)
[2020-07-10] MEDS ORDERED: CETACAINE SPRAY 5GM As Ordered ONE (17:59)
[2020-07-10] MEDS ORDERED: fentaNYL 100 MCG/2 ML INJECTION (J3010) As Ordered ONE (18:03)
[2020-07-10] MEDS ORDERED: propofoL 200 MG/20 ML VIAL As Ordered ONE (18:03)
[2020-07-10] MEDS ORDERED: MIDAZOLAM INJ 2MG/2ML VIAL (J2250 PER 1MG) As Ordered ONE (18:03)
[2020-07-10] MEDS ORDERED: LIDOCAINE 2% 100MG/5ML SDV (FOR ANES.) As Ordered ONE (18:03)
[2020-07-10 20:00] VITALS: BP 172/78
[2020-07-10] MEDS: ATORVASTATIN 20 MG TAB PO SCH (20:39)
[2020-07-10] MEDS: ACETAMINOPHEN TAB 650MG DOSE (2X325MG) PO PRN (20:39)
[2020-07-11] VITALS: BP 153/67
[2020-07-11 04:00] VITALS: BP 141/64
[2020-07-11] MEDS: LEVALBUTEROL 1.25 MG/0.5 ML CONCENTRATE NEB INH SCH ×7 (04:56→23:49)
[2020-07-11 05:34] LABS: BASO # 0.1 10^3/uL (0.0-0.2); BASO % 0.6 % (0.0-1.0); EOS # 0.3 10^3/uL (0.0-0.5); EOS % 2.4 % (0.0-3.0); HEMATOCRIT 37.7 % (36.0-47.0); HEMOGLOBIN 11.6 g/dl (12.0-15.5); LYMPH # 1.4 10^3/uL (1.5-5.0); LYMPH % 13.4 % (24.0-44.0); MEAN CORPUSCULAR HEMOGLOBIN 30.2 pg (27.0-33.0); MEAN CORPUSCULAR HGB CONC 30.8 g/dl (32.0-36.5); MEAN CORPUSCULAR VOLUME 98.2 fl (80.0-96.0); MONO # 0.6 10^3/uL (0.0-0.8); NEUTROPHILS % 77.2 % (36.0-66.0); PLATELET COUNT, AUTOMATED 381 10^3/uL (150-450); RED BLOOD COUNT 3.84 10^6/uL (4.00-5.40); WHITE BLOOD COUNT 10.4 10^3/uL (4.0-10.0)
[2020-07-11 05:58] LABS: BLOOD UREA NITROGEN 7 MG/DL (7-18); CALCIUM LEVEL 8.4 MG/DL (8.8-10.2); CARBON DIOXIDE LEVEL 28 MEQ/L (21-32); CHLORIDE LEVEL 105 MEQ/L (98-107); CREATININE FOR GFR 0.75 MG/DL (0.55-1.30); GLOMERULAR FILTRATION RATE > 60.0 (>45); GLUCOSE, FASTING 86 MG/DL (70-100); MAGNESIUM LEVEL 2.1 MG/DL (1.8-2.4); POTASSIUM SERUM 3.6 MEQ/L (3.5-5.1); SODIUM LEVEL 139 MEQ/L (136-145)
[2020-07-11] MEDS: LEVOTHYROXINE 62.5MCG PER 1/2 TAB (0.0625MG) PO SCH (06:25)
[2020-07-11] MEDS: SLF 3 ML SYR IV SCH ×3 (06:27→20:53)
[2020-07-11 07:14] VITALS: BP 166/75
[2020-07-11] MEDS: ASPIRIN 81 MG CHEW TABLET PO SCH (08:06)
[2020-07-11] MEDS: CLOPIDOGREL 75 MG TAB PO SCH (08:06)
[2020-07-11] MEDS: ENOXAPARIN 40MG/0.4ML SYRINGE (J1650 PER 10MG) SC SCH (08:06)
[2020-07-11] MEDS: NICOTINE 7 MG/24 HR TRANSDERMAL TOP SCH (08:07)
[2020-07-11 12:00] VITALS: BP 188/84
[2020-07-11 12:08] LABS: ANTINUCLEAR ANTIBODIES DIRECT Negative (Negative)
--- NOTE | 2020-07-11 13:41 | T-ECHO ---
TRANSESOPHAGEAL ECHO DATE: 07/10/2020 REFERRING PHYSICIAN: Pooja Zaman MD PREPROCEDURE DIAGNOSIS: Cryptogenic stroke. POSTPROCEDURE DIAGNOSIS: Cryptogenic stroke. PRINCIPAL CLINICAL FINDINGS: Mild-moderate atheroma involving the distal aortic arch and mild atheroma involving the descending thoracic aorta. No patent foramen ovale or ASD. No vegetations. No intracardiac thrombi or masses. PROCEDURE PERFORMED BY: Herrera Richmond M.D. EXHIBITS MANAGER: None. PROCEDURE PERFORMED: Transesophageal echocardiogram with saline bubble study. INTRAVENOUS (IV) SEDATION: Propofol IV per INFORMATION TECHNOLOGY OFFICER. COMPLICATIONS: None. DESCRIPTION OF PROCEDURE: Rhythm was sinus. The patient received topical Cetacaine spray to the back of the pharynx prior to the start of the procedure. After receiving adequate sedation with propofol, esophageal intubation was accomplished without difficulty using a Paige two-dimensional multiplane transesophageal echocardiogram scope. The left and right ventricles appeared normal in size and systolic function without regional wall motion abnormalities. Left ventricle ejection fraction was 70% by visual assessment. Right ventricle systolic function was normal. Atria appeared to be anatomically normal. Pulse wave Doppler in the left upper pulmonary vein showed normal flow pattern. No mass or thrombi were seen within the atria or their appendages. Atrial septum was intact anatomically and by color flow Doppler. A saline bubble study was performed using 1 mL of air, 1 mL of propofol, and 8 mL of normal saline, which was agitated back and forth across a three-way stopcock between two 10 mL syringes, and this was injected by the INFORMATION TECHNOLOGY OFFICER ensuring Valsalva maneuver. With Valsalva maneuver release, no bubbles were seen going from the right heart circulation to the left heart circulation. The bubble study quality was excellent. No pericardial effusion. The descending thoracic aorta showed mild atheroma plaque. The distal aortic arch showed mild-moderate atherosclerotic plaque/atheroma, but no mobile components. Aortic valve was 3-cuspid aortic valve and showed very mild focal thickening. Very mild aortic regurgitation was present centrally. Mitral leaflets appeared structurally normal. Very mild mitral regurgitation was present within normal limits. Pulmonic valve was poorly visualized, but did not appear to be regurgitate or abnormal. The tricuspid leaflets were structurally and functionally normal with very mild tricuspid regurgitation. No pericardial effusion. CONCLUSIONS: 1. Negative bubble study for detection of right heart to left heart shunting. No patent foramen ovale. 2. No vegetations, intracardiac masses, or thrombi. 3. Normal left ventricle size and systolic function and regional wall motion. Left ventricle ejection fraction 70% by visual estimate. 4. Mild atherosclerosis plaque involving the descending thoracic aorta. Mild-moderate atherosclerosis-atheroma involving the distal aortic arch without mobile components. 5. Very mild aortic valve sclerosis with very mild aortic regurgitation. 6. Otherwise normal appearing transesophageal echocardiogram Doppler findings. MD Alycia Williamson MD
--- NOTE | 2020-07-11 13:44 | IPNPDOC ---
Date Seen The patient was seen on 07/11/20. Progress Note SUBJECTIVE: Speech changed diet per evaluation, PT: suggesting ARU but patient refusing. Will discuss with team. GOPAL done on 07/11/20, official report pending. Cardiology recommending f/u as o/p for implantable loop monitoring. Patient complains of persistent right side weakness, blurry vision at times but no increased shortness of breath, n/v/d, chest pain. OBJECTIVE: PHYSICAL EXAMINATION: VITAL SIGNS: please see below GENERAL APPEARANCE: Sitting up at bedside chair, NAD, AAOx3 HEENT: PERRLA EOMI intact, right side facial droop with slurred speech noted CARDIOVASCULAR: S1S2 RRR no murmurs noted LUNGS:diminished breath sounds.fine crepitations right base. ABDOMEN: +bs soft obese nontender nondistended no HSM EXTREMITIES: no cyanosis or clubbing NEUROLOGICAL:right side facial drooping, dtr's intact b/l ue, le. no pronator drift. motor function 2/4 on right UE and LE +babinski no sensory disturbance b/l UE/LE. LABORATORY DATA: See below. IMAGING STUDIES: CXR 07/10/20: Evidence of hyperinflation and COPD. No acute infiltrate. Borderline heart size.. CT HEAD WITHOUT CONTRAST 07/08/20: No acute intracranial hemorrhage, midline shift or mass effect. Mild chronic changes. CTA NECK 07/08/20: No evidence of occlusion or significant stenosis of the internal carotid arteries bilaterally. CT ANGIO HEAD 07/08/20: No evidence of intracranial major vessel occlusion or significant stenosis. CXR 07/08/20: NO ACUTE PULMONARY DISEASE. Mild cardiomegaly. MR Head Without Contrast 07/08/2020: 1. Incomplete examination secondary to patient termination of imaging. 2. 4 mm acute/early subacute ischemic infarct at the left internal capsule posterior limb. ASSESSMENT: 64 y/o F transferred from [facility] ER to [facility] 2 weeks ago for Facial drooping, slurred speech / left anterofrontal CVA, and sent home w/o residual neurologic deficits with ASA and plavix. 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 Pt was instructed to call on Friday07/10/20 to discuss results of possible malignancy. Patient lives with her , daughter,and was noted to have slurred speech around 1pm when talking to her daughter without facial drooping or drooling. At around 3-3:30 pm, patient was in the living room, sitting, watching TV when she c/o b/l hand and b /l le numbness. Another daughter who was just heading home from work called and told her sister to call EMS to bring the patient to the ER. She has been compliant with her ASA and plavix and has not missed a dose. When EMS arrived,patient had difficulty getting up because both legs felt numb. She had resolution of her symptoms when she arrived in the ER. CT head angio, CT brain negative for CVA. glucose 128. EKG-sinus 72 bpm. Hospitalist was called to admit for CVA. PLAN: Acute/ subacute 4mm left internal capsule posterior limb infarct CVA with right hemiparesis / slurred speech/facial droop. Cannot r/o cryptogenic stroke- poss afib/aflutter? -Neurologically, has not worsened in last 24 hours. No documented arrhythmias while here. -BP systolic >180 this AM, started lisinopril 5 mg PO daily, can go up on dose if needed -All scans above -GOPAL pending; however, prelim report by cardiology neg. Suggesting implantable loop device as o/p. -Swallowing eval: mech soft, thin liquids. CXR: no concern for aspiration -For now, c/w hypercoaguable/vasculitis w/u (many tests still pending), f/u official reading of GOPAL -C/w ASA and plavix despite recent vaginal bleed 2 weeks ago. Neuro: keep SBP <180 mmHg. -PT: would benefit from ARU; however, patient refusing this AM. Will discuss wit h team. Shortness of breath, ruled out aspiration PNA -CXR: Evidence of hyperinflation and COPD. No acute infiltrate. Borderline heart size.. -Swallowing eval above -Remains on 1 L NC, saturating well. -Monitor for s/s of changes, worsening status. HTN -BP systolic >180 mmHg this AM -Started on low dose lisinopril, monitor closely History of Left Anterofrontal CVA 2weeks ago -C/w ASA, plavix, treatment above Vaginal Bleed/Uterine Mass -Stable, no s/s of bleeding here -H/H stable -Evaluated with biopsy hysteroscopy at [facility]. -Can f/u with pathology /cytology report through them or PCP Hx of Tobacco Abuse -Nicotine patch Dyslipidemia -C/w statin Obesity - optimized bp control and treating hyperlipidemia Hypothyroidism -C/w synthroid Cardiomegaly -GOPAL pending Varicose Veins -s/p stripping Vitamin D deficiency -resume home meds DVT px: -Lovenox DISPOSITION: PT suggesting ARU;however, today patient is refusing. To discuss with team on options for safe discharge. Patient would like to go home with services. VS, I&O, 24H, Fishbone Vital Signs/I&O Vital Signs Date Time Temp Pulse Resp B/P (MAP) Pulse Ox O2 Delivery O2 Flow Rate FiO2 07/11/20 12:00 99.1 83 20 188/84 (118) 95 Nasal Cannula 1.0 I&O- Last 24 Hours up to 6 AM 07/11/20 06:00 Intake Total 300 ml Output Total 500 ml Balance -200 ml Laboratory Data 24H LABS Laboratory Tests 2 07/11/20 05:03: Immature Granulocyte % (Auto) 0.4, Neutrophils (%) (Auto) 77.2H, Lymphocytes (%) (Auto) 13.4L, Monocytes (%) (Auto) 6.0H, Eosinophils (%) (Auto) 2.4, Basophils (%) (Auto) 0.6, Neutrophils # (Auto) 8.0, Lymphocytes # (Auto) 1.4L, Monocytes # (Auto) 0.6, Eosinophils # (Auto) 0.3, Basophils # (Auto) 0.1, Nucleated Red Blood Cells % (auto) 0.0, Anion Gap 6L, Glomerular Filtration Rate > 60.0, Calcium Level 8.4L, Magnesium Level 2.1 CBC/BMP Laboratory Tests 07/11/20 05:03 Current Medications Current Medications Medications (Trade) Dose Ordered Sig/Marilyn Route PRN Reason Start Time Stop Time Status Last Admin Dose Admin Acetaminophen (Tylenol Tab) 650 mg Q4HP PRN PO PAIN OR FEVER 07/09/20 15:45 07/10/20 20:39 Acetaminophen (Tylenol Tab) 650 mg Q4HP PRN PO PAIN OR FEVER 07/09/20 15:45 UNV Aspirin (Aspirin Chewable) 81 mg DAILY PO 07/09/20 09:00 07/11/20 08:06 Atorvastatin Calcium (Lipitor) 80 mg QHS PO 07/08/20 21:00 07/10/20 20:39 Clopidogrel Bisulfate (PLAVix) 75 mg DAILY PO 07/09/20 09:00 07/11/20 08:06 Enoxaparin Sodium (Lovenox) 40 mg DAILY SC 07/09/20 09:00 07/11/20 08:06 Home Med (Med Rec Complete!) ASDIRECTED XX 07/08/20 18:15 07/08/20 18:21 DC Levalbuterol HCl (Xopenex Neb) 1.25 mg RQ4H INH 07/10/20 12:00 07/11/20 12:02 Levothyroxine Sodium (Synthroid) 50 mcg DAILY@0600 PO 07/09/20 06:00 07/09/20 15:46 DC 07/09/20 06:28 Levothyroxine Sodium (Synthroid) 62.5 mcg DAILY@06 PO 07/10/20 06:00 07/11/20 06:25 Lisinopril (Prinivil) 5 mg DAILY PO 07/11/20 13:30 UNV Lorazepam (Ativan) 1 mg STAT STAT IV 07/08/20 22:31 07/08/20 22:33 DC Nicotine (Nicoderm Cq 7 Mg) 1 patch DAILY TOP 07/09/20 09:00 07/11/20 08:07 Sodium Chloride (Saline Lock Flush) 2 ml ASDIRECTED PRN IV SEE LABEL COMMENTS 07/10/20 10:00 Sodium Chloride (Saline Lock Flush) 2 ml SLF IV 07/10/20 14:00 07/11/20 06:27 Allergies Coded Allergies: No Known Drug Allergies (Verified Allergy, Unknown, 07/08/20) Yesi Staples MD Jul 11, 2020 13:44
--- NOTE | 2020-07-11 14:00 | ECHO ---
DATE OF PROCEDURE: 07/09/2020 Age: 64 Gender: Female Height: 62 inches Weight: 185 pounds Body surface area: 1.85 m2 PATIENT LOCATION: Inpatient PCU, Room 3212. REFERRING PHYSICIAN: Pooja Zaman MD. INDICATION: Transient ischemic attack (TIA) cardiac source of embolic material ? MEASUREMENTS: 2D Measurements: RV 3.2 cm LV 5.0 cm Septum 1.2 cm Posterior wall 1.1 cm Aortic Root 3.7 cm LA 3.7 cm LVEF 75% Doppler Measurements: AV 1.25 m/s LVOT 1.0 m/s MV-E 50, A 59, E/A ratio 0.8 Early mitral deceleration time 201 msec E prime medial 5.8, A prime medial 7.3, E prime lateral 8.3 PV 1.0 m/s Pulmonary artery acceleration time 127 msec PASP 24 mmHg IVC 1.8 cm COMMENTS: Normal sinus rhythm without intraventricular conduction disturbance. M-mode and two-dimensional echocardiography was performed with pulse, continuous wave, color flow, and tissue Doppler studies. There was also a saline contrast study performed. Left ventricular wall thickness upper limits of normal with normal wall motion. Left atrial size was upper limits of normal with grade 1 LV diastolic dysfunction, but normal estimated mean left atrial pressure. Normal right heart chamber sizes, wall motion, and estimated pulmonary arterial pressure. Normal IVC size and collapse against an elevated central venous pressure. Normal aortic dimensions. Mild aortic valvular sclerosis without stenosis, but very mild insufficiency. Normal appearing mitral valve apparatus with trace insufficiency. Normal appearing tricuspid valve with again physiologic trace insufficiency. No separate intracardiac mass or pericardial effusion. Several saline bolus injections were made through a large forearm vein while imaging from the apical four chamber projection. Good opacification was observed with contrast filling the right heart chambers, but no left heart bubbles were observed against an intracardiac shunt. MTDD
[2020-07-11 15:23] VITALS: BP 162/71
[2020-07-11] MEDS: lisinopriL 5 MG TAB PO SCH (15:32)
[2020-07-11 20:00] VITALS: BP 150/72
[2020-07-11] MEDS: ACETAMINOPHEN TAB 650MG DOSE (2X325MG) PO PRN (20:50)
[2020-07-11] MEDS: ATORVASTATIN 20 MG TAB PO SCH (20:50)
[2020-07-12] VITALS: BP 131/61
[2020-07-12 04:00] VITALS: BP 159/73
[2020-07-12] MEDS: LEVALBUTEROL 1.25 MG/0.5 ML CONCENTRATE NEB INH SCH ×4 (04:19→15:38)
[2020-07-12 05:28] LABS: BASO # 0.1 10^3/uL (0.0-0.2); BASO % 0.7 % (0.0-1.0); EOS # 0.2 10^3/uL (0.0-0.5); EOS % 2.8 % (0.0-3.0); HEMATOCRIT 36.4 % (36.0-47.0); HEMOGLOBIN 11.3 g/dl (12.0-15.5); LYMPH # 1.3 10^3/uL (1.5-5.0); LYMPH % 15.2 % (24.0-44.0); MEAN CORPUSCULAR HEMOGLOBIN 30.4 pg (27.0-33.0); MEAN CORPUSCULAR VOLUME 97.8 fl (80.0-96.0); MONO # 0.5 10^3/uL (0.0-0.8); MONO % 6.4 % (0.0-5.0); NEUTROPHILS # 6.2 10^3/uL (1.5-8.5); NEUTROPHILS % 74.4 % (36.0-66.0); PLATELET COUNT, AUTOMATED 351 10^3/uL (150-450); RED BLOOD COUNT 3.72 10^6/uL (4.00-5.40); WHITE BLOOD COUNT 8.3 10^3/uL (4.0-10.0)
[2020-07-12 05:52] LABS: BLOOD UREA NITROGEN 9 MG/DL (7-18); CALCIUM LEVEL 7.8 MG/DL (8.8-10.2); CARBON DIOXIDE LEVEL 28 MEQ/L (21-32); CHLORIDE LEVEL 105 MEQ/L (98-107); GLOMERULAR FILTRATION RATE > 60.0 (>45); GLUCOSE, FASTING 98 MG/DL (70-100); MAGNESIUM LEVEL 2.1 MG/DL (1.8-2.4); POTASSIUM SERUM 3.8 MEQ/L (3.5-5.1); SODIUM LEVEL 141 MEQ/L (136-145)
[2020-07-12] MEDS: SLF 3 ML SYR IV SCH ×2 (06:00→13:23)
[2020-07-12] MEDS: LEVOTHYROXINE 62.5MCG PER 1/2 TAB (0.0625MG) PO SCH (06:53)
[2020-07-12] MEDS ORDERED: LISI-898 PO ×2 (07:45→07:47)
[2020-07-12] MEDS ORDERED: LEVO125T4 PO (07:45)
[2020-07-12 08:08] VITALS: BP 184/68
[2020-07-12] MEDS: ENOXAPARIN 40MG/0.4ML SYRINGE (J1650 PER 10MG) SC SCH (08:45)
[2020-07-12 08:46] VITALS: BP 184/68
[2020-07-12] MEDS: lisinopriL 5 MG TAB PO SCH (08:46)
[2020-07-12] MEDS: CLOPIDOGREL 75 MG TAB PO SCH (08:46)
[2020-07-12] MEDS: ASPIRIN 81 MG CHEW TABLET PO SCH (08:47)
[2020-07-12 08:54] VITALS: BP 144/70
[2020-07-12] MEDS: NICOTINE 7 MG/24 HR TRANSDERMAL TOP SCH (08:55)
[2020-07-12 11:53] LABS: DRVV SCREEN 36.9 SEC
[2020-07-12 11:59] LABS: PTT LUPUS TYPE ANTICOAG SCREEN 0.9 (0-1.2)
[2020-07-12 12:00] VITALS: BP 146/67
--- NOTE | 2020-07-12 13:03 | DS.PDOC ---
Discharge Summary General Date of Admission Jul 08, 2020 at 17:48 Date of Discharge 07/12/20 Attending Physician: Yesi Staples MD Discharge Summary HISTORY OF PRESENT ILLNESS: 64 y/o F transferred from [facility] ER to [facility] 2 weeks ago for Facial drooping, slurred speech / left anterofrontal CVA, and sent home w/o residual neurologic deficits with ASA and plavix. Prior to hospital discharge, pt developed vaginal bleeding, found to have a large uterine mass, evaluated by [facility] commercial construction superintendent s/p hysteroscopy with biopsy. Pt was instructed to call on Friday07/10/20 to discuss results of possible malignancy. Patient lives with her , daughter,and was noted to have slurred speech around 1pm when talking to her daughter without facial drooping or drooling. At around 3-3:30 pm, patient was in the living room, sitting, watching TV when she c/o b/l hand and b/l le numbness. Another daughter who was just heading home from work called and told her sister to call EMS to bring the patient to the ER. She has been compliant with her ASA and plavix and has not missed a dose. When EMS arrived,patient had difficulty getting up because both legs felt numb. She had resolution of her symptoms when she arrived in the ER. CT head angio, CT brain negative for CVA. glucose 128. EKG-sinus 72 bpm. Hospitalist was called to admit for recurrent TIA and to r/o CVA. HOSPITAL COURSE: MRI brain showed 4 mm acute/early subacute ischemic infarct at the left internal capsule posterior limb. This is new since last CVA. GOPAL was done; however, essentially unremarkable. Concern for cryptogenic stroke persisted, cardiology would like to f/u with implantable loop recorder after discharge to further evaluate. Speech changed diet per evaluation and she has been tolerating this well. No concern for aspiration on CXR. She has had no change in neuro status, no new focal deficits. BP were elevated this admission and lisinopril had to be increased to 10 mg PO daily. There is a hypercoaguable/vasculitis w/u (many tests still pending). Advice by neurology was to c/w ASA and plavix despite recent vaginal bleed 2 weeks ago.Patient is being discharged today to ARU to [facility]. Other chronic issues were stable, please see under "Plan" below. At discharge, patient denied chest pain, shortness of breath, n/v/d, fevers, chills. PAST MEDICAL HISTORY: 06/2020 Left sujatha-frontal CVA w right sided weakness and facial droop treated at [facility] [place], Vaginal Bleeding/Uterine mass 06/2020 s/p biopsy [facility], Obesity, Tobacco abuse, hypothyroidism, HTN, varicosities PAST SURGICAL HISTORY: varicose vein stripping 1999, tubal ligation, hysteroscopy with biopsy of uterine mass 06/2020. SOCIAL HISTORY: lives at home w , and daughter. full code . 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 previous smoker, quit 2weeks ago. denies etoh or recreational drug use FAMILY HISTORY: Father: cad, dm2, left bka due to complications of DM, Mother:cva, age 62 ALLERGIES: Please see below. DISCHARGE MEDICATIONS: Please see below. PHYSICAL EXAMINATION: VITAL SIGNS: please see below GENERAL APPEARANCE: Sitting up at bedside chair, NAD, AAOx3 HEENT: PERRLA EOMI intact, right side facial droop with slurred speech noted CARDIOVASCULAR: S1S2 RRR no murmurs noted LUNGS:diminished breath sounds.fine crepitations right base. ABDOMEN: +bs soft obese nontender nondistended no HSM EXTREMITIES: no cyanosis or clubbing NEUROLOGICAL:right side facial drooping, dtr's intact b/l ue, le. no pronator drift. strength 2-3/5 RUE, 4/5 on RLE, 5/5 on LUE, LLE. LABORATORY DATA: See below. IMAGING STUDIES: GOPAL: 1. Negative bubble study for detection of right heart to left heart shunting. No patent foramen ovale. 2. No vegetations, intracardiac masses, or thrombi. 3. Normal left ventricle size and systolic function and regional wall motion. Left ventricle ejection fraction 70% by visual estimate. 4. Mild atherosclerosis plaque involving the descending thoracic aorta. Mild- moderate atherosclerosis-atheroma involving the distal aortic arch without mobile components. 5. Very mild aortic valve sclerosis with very mild aortic regurgitation. 6. Otherwise normal appearing transesophageal echocardiogram Doppler findings. CXR 07/10/20: Evidence of hyperinflation and COPD. No acute infiltrate. Borderline heart size.. CT HEAD WITHOUT CONTRAST 07/08/20: No acute intracranial hemorrhage, midline shift or mass effect. Mild chronic changes. CTA NECK 07/08/20: No evidence of occlusion or significant stenosis of the internal carotid arteries bilaterally. CT ANGIO HEAD 07/08/20: No evidence of intracranial major vessel occlusion or significant stenosis. CXR 07/08/20: NO ACUTE PULMONARY DISEASE. Mild cardiomegaly. MR Head Without Contrast 07/08/2020: 1. Incomplete examination secondary to patient termination of imaging. 2. 4 mm acute/early subacute ischemic infarct at the left internal capsule posterior limb. ASSESSMENT: 64 y/o F transferred from [facility] ER to [facility] 2 weeks ago for Facial drooping, slurred speech / left anterofrontal CVA, and sent home w/o residual neurologic deficits with ASA and plavix. Prior to hospital discharge, pt developed vaginal bleeding, found to have a large uterine mass, evaluated by [facility] commercial construction superintendent s/p hysteroscopy with biopsy. Pt was instructed to call on Friday07/10/20 to discuss results of possible malignancy. Patient lives with her , daughter,and was noted to have slurred speech around 1pm when talking to her daughter without facial drooping or drooling. At around 3-3:30 pm, patient was in the living room, sitting, watching TV when she c/o b/l hand and b/l le numbness. Another daughter who was just heading home from work called and told her sister to call EMS to bring the patient to the ER. She has been compliant with her ASA and plavix and has not missed a dose. When EMS arrived,patient had difficulty getting up because both legs felt numb. She had resolution of her symptoms when she arrived in the ER. CT head angio, CT brain negative for CVA. glucose 128. EKG-sinus 72 bpm. Hospitalist was called to admit for CVA. PLAN: Acute/ subacute 4mm left internal capsule posterior limb infarct CVA with right hemiparesis / slurred speech/facial droop. Cannot r/o cryptogenic stroke -Neurologically, has not worsened. No documented arrhythmias while here. -BP systolic better controlled with increased lisinopril -All scans above -GOPAL above. Cardiology suggesting implantable loop device as o/p. -Swallowing eval: mech soft, thin liquids. CXR: no concern for aspiration -For now, c/w hypercoaguable/vasculitis w/u (many tests still pending) -C/w ASA and plavix despite recent vaginal bleed 2 weeks ago. Neuro: keep SBP <180 mmHg. -PT/OT to continue in ARU Shortness of breath, ruled out aspiration PNA -CXR: Evidence of hyperinflation and COPD. No acute infiltrate. Borderline heart size.. -Swallowing eval above -on RA this AM HTN -BP better controlled -C/w lisinopril History of Left Anterofrontal CVA 2weeks ago -C/w ASA, plavix, treatment above Vaginal Bleed/Uterine Mass -Stable, no s/s of bleeding here -H/H stable -Evaluated with biopsy hysteroscopy at [facility]. -Can f/u with pathology /cytology report through them or PCP Hx of Tobacco Abuse -Nicotine patch Dyslipidemia -C/w statin Obesity - optimized bp control and treating hyperlipidemia Hypothyroidism -C/w synthroid Cardiomegaly -GOPAL pending Varicose Veins -s/p stripping Vitamin D deficiency -resume home meds DISPOSITION: Discharging to ARU today, will need f/u with Dr. Richmond (cardiology) for implantable loop recorder. TIME SPENT ON DISCHARGE: Greater than 30 minutes. Vital Signs/I&Os Vital Signs Date Time Temp Pulse Resp B/P (MAP) Pulse Ox O2 Delivery O2 Flow Rate FiO2 07/12/20 12:00 97.8 70 18 146/67 (93) 91 Nasal Cannula 1.0 I&O- Last 24 Hours up to 6 AM 07/12/20 05:59 Intake Total 2220 ml Output Total 850 ml Balance 1370 ml Laboratory Data Labs 24H Laboratory Tests 2 07/12/20 05:03: Immature Granulocyte % (Auto) 0.5, Neutrophils (%) (Auto) 74.4H, Lymphocytes (%) (Auto) 15.2L, Monocytes (%) (Auto) 6.4H, Eosinophils (%) (Auto) 2.8, Basophils (%) (Auto) 0.7, Neutrophils # (Auto) 6.2, Lymphocytes # (Auto) 1.3L, Monocytes # (Auto) 0.5, Eosinophils # (Auto) 0.2, Basophils # (Auto) 0.1, Nucleated Red Blood Cells % (auto) 0.0, Anion Gap 8, Glomerular Filtration Rate > 60.0, Calcium Level 7.8L, Magnesium Level 2.1 CBC/BMP Laboratory Tests 07/12/20 05:03 Discharge Medications Scheduled Aspirin (Aspirin) 81 Mg Tab.chew, 81 MG PO DAILY, (Reported) Atorvastatin Calcium (Lipitor) 80 Mg Tablet, 80 MG PO QHS, (Reported) Clopidogrel Bisulfate (Clopidogrel) 75 Mg Tablet, 75 MG PO DAILY, (Reported) Levothyroxine Sodium (Levothyroxine Sodium) 125 Mcg Tablet, 62.5 MCG PO DAILY@06 Lisinopril (Lisinopril) 5 Mg Tablet, 10 MG PO DAILY Nicotine (Nicotine Patch) 7 Mg Patch.td24, 1 PATCH TOP DAILY, (Reported) APPLY TO SHOULDER OR UPPER ARM Norethindrone Acetate (Norethindrone Acetate) 5 Mg Tablet, 5 MG PO TID, (Reported) Allergies Coded Allergies: No Known Drug Allergies (Verified Allergy, Unknown, 07/08/20) Yesi Staples MD Jul 12, 2020 13:03
[2020-07-12 17:09] LABS: ANCA-ATYPICAL <1:20 titer (Neg:<1:20); ANTI THROMBIN 3 FUNCT ACTIVITY 112 % (75-135); CYTOPLASMIC NEUTROP AB ANCA-C <1:20 titer (Neg:<1:20); PERINUCLEAR AB ANCA-P <1:20 titer (Neg:<1:20); PROTEIN C FUNCTIONAL ACTIVITY 173 % (73-180); PROTEIN S FUNCTIONAL ACTIVITY 123 % (63-140); SSA SJOGRENS A <0.2 AI (0.0-0.9); SSB SJOGRENS B <0.2 AI (0.0-0.9)
== END 2020-07-12 16:17 | disposition short-term general hospital (02) | DRG 45 ==
LOC: EDBD 16:11 → M ED 16:11 → M ED INP 17:48 → M PCU 23:25
PROVIDERS: ADMIT General Practice; ATTEND Internal Medicine
PROC: B246ZZ4 Ultrasonography of Right and Left Heart, Transesophageal (ICD-10-PCS; principal; 2020-07-10 17:00)
DX: I63.9 Cerebral infarction, unspecified (principal); I10 Essential (primary) hypertension; J44.9 Chronic obstructive pulmonary disease, unspecified; E78.5 Hyperlipidemia, unspecified; Z87.891 Personal history of nicotine dependence; E03.9 Hypothyroidism, unspecified; E66.9 Obesity, unspecified; Z79.82 Long term (current) use of aspirin; Z79.899 Other long term (current) drug therapy; E55.9 Vitamin D deficiency, unspecified

== ENCOUNTER 2020-07-12 10:16 | Inpatient (IN) | payer BC ==
[~2020-07-12] VITALS: Ht 157.5 cm; Wt 82.3 kg
[~2020-07-12 10:16] MED LIST: ASPI81CH33 PO; CLOP75TA2 PO; LEVO125T4 PO; LEVO50CA PO; LIPI80TA PO; LISI-898 PO; NICO7PA TOP; NORE1TAB12 PO; NORE5TAB PO; SYNT50TA PO
[2020-07-12] MEDS: REMEDY PHYTOPLEX Z-GUARD PASTE 113GM TUBE (FROM STOREROOM PRODUCT) TOP SCH ×2 (16:00→20:52)
[2020-07-12] MEDS: LEVALBUTEROL HFA 45MCG/ACT 15 GM INHALER INH SCH ×2 (16:00→19:55)
[2020-07-12 16:10] VITALS: BP 152/80
--- OUTSIDE RECORDS SUMMARY | 2020-07-12 16:46 | CCD ---
Author Author [facility] Organization [facility] Address Unknown Phone Unavailable Care Team Providers Care Chemical Equipment Controller Name Role Phone Katya CONWAY MD Unavailable Unavailable Katya CONWAY MD Unavailable Unavailable Katya CONWAY MD Unavailable Unavailable Katya CONWAY MD Unavailable Unavailable Katya CONWAY MD Unavailable Unavailable Katya CONWAY MD Unavailable Unavailable Katya CONWAY MD Unavailable Unavailable Katya CONWAY MD Unavailable Unavailable Katya CONWAY MD Unavailable Unavailable Katya CONWAY MD Unavailable Unavailable Katya CONWAY MD Unavailable Unavailable Katya CONWAY MD Unavailable Unavailable Katya CONWAY MD Unavailable Unavailable Katya CONWAY MD Unavailable Unavailable Katya CONWAY MD Unavailable Unavailable PIEDRA, R AUREA Unavailable Unavailable KIRSTIN, F BIRX Unavailable Unavailable Fatou LOZA MD Unavailable Unavailable Fatou LOZA MD Unavailable Unavailable Fatou LOZA MD Unavailable Unavailable Fatou LOZA MD Unavailable Unavailable Fatou LOZA MD Unavailable Unavailable Fatou LOZA MD Unavailable Unavailable Fatou LOZA MD Unavailable Unavailable Fatou LOZA MD Unavailable Unavailable Fatou LOZA MD Unavailable Unavailable Fatou LOZA MD Unavailable Unavailable Fatou LOZA MD Unavailable Unavailable Fatou LOZA MD Unavailable Unavailable DULEEP, K LISANDRO MD Unavailable Unavailable DULEEP, K LISANDRO MD Unavailable Unavailable DULEEP, K LISANDRO MD Unavailable Unavailable DULEEP, K LISANDRO MD Unavailable Unavailable DULEEP, K LISANDRO MD Unavailable Unavailable DULEEP, K LISANDRO MD Unavailable Unavailable DULEEP, K LISANDRO MD Unavailable Unavailable DULEEP, K LISANDRO MD Unavailable Unavailable DULEEP, K LISANDRO MD Unavailable Unavailable DULEEP, K LISANDRO MD Unavailable Unavailable DULEEP, K LISANDRO MD Unavailable Unavailable DULEEP, K LISANDRO MD Unavailable Unavailable DULEEP, K LISANDRO MD Unavailable Unavailable DULEEP, K LISANDRO MD Unavailable Unavailable DULEEP, K LISANDRO MD Unavailable Unavailable DULEEP, K LISANDRO MD Unavailable Unavailable DULEEP, K LISANDRO MD Unavailable Unavailable DULEEP, K LISANDRO MD Unavailable Unavailable DULEEP, K LISANDRO MD Unavailable Unavailable DULEEP, K LISANDRO MD Unavailable Unavailable DULEEP, K LISANDRO MD Unavailable Unavailable DULEEP, K LISANDRO MD Unavailable Unavailable DULEEP, K LISANDRO MD Unavailable Unavailable DULEEP, K LISANDRO MD Unavailable Unavailable DULEEP, K LISANDRO MD Unavailable Unavailable DULEEP, K LISANDRO MD Unavailable Unavailable DULEEP, K LISANDRO MD Unavailable Unavailable DULEEP, K LISANDRO MD Unavailable Unavailable DULEEP, K LISANDRO MD Unavailable Unavailable DULEEP, K LISANDRO MD Unavailable Unavailable DULEEP, K LISANDRO MD Unavailable Unavailable DULEEP, K LISANDRO MD Unavailable Unavailable DULEEP, K LISANDRO MD Unavailable Unavailable DULEEP, K LISANDRO MD Unavailable Unavailable DULEEP, K LISANDRO MD Unavailable Unavailable DULEEP, K LISANDRO MD Unavailable Unavailable DULEEP, K LISANDRO MD Unavailable Unavailable DULEEP, K LISANDRO MD Unavailable Unavailable DULEEP, K LISANDRO MD Unavailable Unavailable DULEEP, K LISANDRO MD Unavailable Unavailable DULEEP, K LISANDRO MD Unavailable Unavailable DULEEP, K LISANDRO MD Unavailable Unavailable DULEEP, Fatou MCMAHON MD Unavailable Unavailable DULEEP, Fatou MCMAHON MD Unavailable Unavailable DULEEP, Fatou MCMAHON MD Unavailable Unavailable DULEEP, Fatou MCMAHON MD Unavailable Unavailable DULEEP, Fatou MCMAHON MD Unavailable Unavailable ZOEY BAILEY MD Unavailable ZOEY BAILEY MD Unavailable ZOEY BAILEY MD Unavailable ZOEY BAILEY MD Unavailable ZOEY BAILEY MD Unavailable Loveless, A Vicki TECHNOLOGY SALES CONSULTANT Unavailable Unavailable Loveless, A Vicki TECHNOLOGY SALES CONSULTANT Unavailable Unavailable Loveless, A Vicki TECHNOLOGY SALES CONSULTANT Unavailable Unavailable Loveless, A Vicki TECHNOLOGY SALES CONSULTANT Unavailable Unavailable Loveless, A Vicki TECHNOLOGY SALES CONSULTANT Unavailable Unavailable Loveless, A Vicki TECHNOLOGY SALES CONSULTANT Unavailable Unavailable Loveless, A Vicki TECHNOLOGY SALES CONSULTANT Unavailable Unavailable Loveless, A Vicki TECHNOLOGY SALES CONSULTANT Unavailable Unavailable Loveless, A Vicki TECHNOLOGY SALES CONSULTANT Unavailable Unavailable Loveless, A Vicki TECHNOLOGY SALES CONSULTANT Unavailable Unavailable Loveless, A Vicki TECHNOLOGY SALES CONSULTANT Unavailable Unavailable Loveless, A Vicki TECHNOLOGY SALES CONSULTANT Unavailable Unavailable Loveless, A Vicki TECHNOLOGY SALES CONSULTANT Unavailable Unavailable Loveless, A Vicki TECHNOLOGY SALES CONSULTANT Unavailable Unavailable Loveless, A Vicki TECHNOLOGY SALES CONSULTANT Unavailable Unavailable Loveless, A Vicki TECHNOLOGY SALES CONSULTANT Unavailable Unavailable Loveless, A Vicki TECHNOLOGY SALES CONSULTANT Unavailable Unavailable Loveless, A Vicki TECHNOLOGY SALES CONSULTANT Unavailable Unavailable Loveless, A Vicki TECHNOLOGY SALES CONSULTANT Unavailable Unavailable Loveless, A Vicki TECHNOLOGY SALES CONSULTANT Unavailable Unavailable Loveless, A Vicki TECHNOLOGY SALES CONSULTANT Unavailable Unavailable Loveless, A Vicki TECHNOLOGY SALES CONSULTANT Unavailable Unavailable Loveless, A Vicki TECHNOLOGY SALES CONSULTANT Unavailable Unavailable Loveless, A Vicki TECHNOLOGY SALES CONSULTANT Unavailable Unavailable Loveless, A Vicki TECHNOLOGY SALES CONSULTANT Unavailable Unavailable Loveless, A Vicki TECHNOLOGY SALES CONSULTANT Unavailable Unavailable Loveless, A Vicki TECHNOLOGY SALES CONSULTANT Unavailable Unavailable Loveless, A Vicki TECHNOLOGY SALES CONSULTANT Unavailable Unavailable Loveless, A Vicki TECHNOLOGY SALES CONSULTANT Unavailable Unavailable Loveless, A Vicki TECHNOLOGY SALES CONSULTANT Unavailable Unavailable Re-disclosure Warning The records that you are about to access may contain information from federally-assisted alcohol or drug abuse programs. If such information is present, then the following federally mandated warning applies: This information has been disclosed to you from records protected by federal confidentiality rules (42 CFR part 2). The federal rules prohibit you from making any further disclosure of this information unless further disclosure is expressly permitted by the written consent of the person to whom it pertains or as otherwise permitted by 42 CFR part 2. A general authorization for the release of medical or other information is NOT sufficient for this purpose. The Federal rules restrict any use of the information to criminally investigate or prosecute any alcohol or drug abuse patient.The records that you are about to access may contain highly sensitive health information, the redisclosure of which is protected by Article 27-F of the [facility] Public Health law. If you continue you may have access to information: Regarding HIV / AIDS; Provided by facilities licensed or operated by the [facility] Office of Mental Health; or Provided by the [facility] Office for People With Developmental Disabilities. If such information is present, then the following [facility] mandated warning applies: This information has been disclosed to you from confidential records which are protected by state law. State law prohibits you from making any further disclosure of this information without the specific written consent of the person to whom it pertains, or as otherwise permitted by law. Any unauthorized further disclosure in violation of state law may result in a fine or snf sentence or both. A general authorization for the release of medical or other information is NOT sufficient authorization for further disc losure. Allergies and Adverse Reactions Type Description Substance Reaction Status Data Source(s ) Aspirin Aspirin Aspirin Vomiting Active eCW1 ([facility]) Encounters Encounter Providers Location Date Indications Data Source(s ) Outpatient Attender: Vicki Salinas NP 11/14/2020 12:0 0:00 AM [facility] Outpatient Attender: HERMAN FULTON 11/08/2020 12:00:00 AM [facility] Outpatient Attender: AUREA PIEDRA 07/11/2020 12:00:00 AM EST [facility] [address] [address] 07/03/2020 12:00:00 AM EST eCW1 ([facility]) Outpatient Attender: AUREA PIEDRAAdmitter: AUREA PIEDRA 06/27/2020 12:00:00 AM EST - 06/27/2020 01:52:56 PM EST Encounter for gynecological examination (general) (routine) without abnormal findings [facility] Encounter for gynecological examination (general) (routine) without abnormal findings Inpatient Attender: ZOEY BAILEY MDAt tender: LISANDRO LOZA MDAttender: EDDA CONWAY MDAdmitter: LISANDRO LOZA MDReferrer: LISANDRO LOZA MD [id number] 06/24/2020 12:00:00 AM EST - 06/27/2020 11:55:00 AM ES T Cerebral infarction due to unspecified occlusion or stenosis of left anterior cerebral artery [facility] Cerebral infarction due to unspecified o cclusion or stenosis of left anterior cerebral artery Patient discharged. Outpatient Attender: LISANDRO LOZA MDReferrer: LISANDRO CABA MD 06/24/2020 12:00:00 AM EST [facility] [address] [place] [phone] 11/15/2019 12:00:00 AM EDT eCW1 ([facility]) Outpatient 11/03/2019 06:02:00 AM EDT [facility] [address] [place] [phone] 10/12/2019 12:00:00 AM EDT eCW1 ([facility]) Medications Medication Brand Name Start Date Product Form Dose Route Admi nistrative Instructions Pharmacy Instructions Status Indications Reaction Description Data Source(s) cetirizine hydrochloride 10 MG Oral Tablet [Zyrtec] Zy rtec Allergy 10 MG Zyrtec Allergy 10 MG 07/03/2020 12:00:00 AM EST 1.0 {tablet} active Zyrtec Allergy 10 MG eCW1 ([facility]) Insurance Providers Payer name Policy type / Coverage type Policy ID Covered republican ID Covered republican's relationship to keyes Policy Keyes Plan Information [employer] [place] 302/307 [id number] EXCELLUS H [id number] Spouse [id number] [employer] [place] 302/307 [id number] EXCELLUS BCBS B [id number] P TNY [id number] [employer] [place] P[place] 302/307 [id number] [id number] EXCELLUS BCBS B [id number] P TNY [id number] Problems, Conditions, and Diagnoses Code Display Name Description Problem Type Effective Dates Data Source(s) I63.9 [id number] Left-sided cerebrovascular accident (CVA) Problem 07/03/2020 12:00:00 AM EST eCW1 ([facility]) N95.0 57899675 PMB (postmenopausal bleeding) Problem 2019 12:00:00 AM EDT eCW1 ([facility]) I10 [id number] Hypertension, unspecified type Problem 10/11 12:00:00 AM EDT eCW1 ([facility]) N95.0 82970915 PMB (postmenopausal bleeding) Problem 2019 12:00:00 AM EDT eCW1 ([facility]) I10 [id number] Hypertension, unspecified type Problem 10/11 12:00:00 AM EDT eCW1 ([facility]) N95.0 Postmenopausal bleeding Postmenopausal bleeding Diagno sis 06/27/2020 12:32:59 PM [facility] Z01.419 Encounter for gynecological examination (general) (routine) without abnormal findings Encounter for gynecological examination (general) (routine) without abnormal findings Diagnosis 06/27/2020 12:32:59 PM [facility] I63.522 Cerebral infarction due to u nspecified occlusion or stenosis of left anterior cerebral artery Cerebral infarction due to unspecified o cclusion or stenosis of left anterior cerebral artery Diagnosis 06/24/2020 09:51:0 0 AM [facility] R/o Stroke R/o Stroke Diagnosis 06/24/2020 09:51:00 AM [facility] Results ID Date Data Source [id number] 07/08/2020 04:57:00 PM [facility] Name Value Range Interpretation Code Description Data Trena rce(s) Supporting Document(s) SARS coronavirus 2 RNA [Presence] in Res piratory specimen by JOHNNA with probe detection NEGATIVE [place]OH This lab was ordered by [facility] a nd reported by [facility]. ID Date Data Source [id number] 07/06/2020 07:43:41 AM EST [facility] Name Value Range Interpretation Code Description Data Trena rce(s) Supporting Document(s) Consultation [facility] RCVVBp4zLqNYQfTj52/GBQvtRVWlz3TqLRzeZVg2EIieSNLtG2DpXHF6vJ6wNZS5PGaHOrOnRtOtUvP8 lbm [file] YGf87ortKaO6BPSIBMAa1U0uczuOxrZ/Jh71Ds9mAd/1AbZJxdlTq/oil well engineer+vzYf/bm8j10o8C1v1rr5/l/ [file] MyPl6TTQFUX6OCZw== ID Date Data Source [id number] 06/29/2020 11:35:11 PM EST [facility] Name Value Range Interpretation Code Description Data Trena rce(s) Supporting Document(s) Discharge Summary [facility] HYZDJf9dVgUJHrMs01/BUAueUZRcw8ZeFVenFOk8POxlCKIuH3TwVET4zO7pEWQ4XNcKApJjJhUiNFJ7 lbm [file] AwMzIzNyAwMDAwMCBuDQowMDAwMDAzNDQxIDAwMDAw XI0CVcAaIUAfSSd1UkAhWCJxIRUobw8FGBRvMGCtIxczXMQmMQTwREUjIYmzNICbXFGzUQW1TRJiLUOo PI8LDsGkJELhIQS6NztpUCCsHUNdqn1HOYTdNESjTLNpVFIdSKGdGTXhMZpuICOlFQE9XqH2XJZdWWIt PI0LFfFfWDTtGHvePEzkCJEqQAGgrh4HEBKcRYZiLR PhDSPnVFLgLLQnZJumGWYuQOOpKnm4DRPkVEDuCY8ACdPgSTYzSyI8MQWkDTAgJSNsgm8QVBBiCRLuGw s0DqVaPLYoTRSxYNkvFVBkHXOlNHP6QQGuJAXpOL7OQeRjMXAuDgU2WLokSOMlKNExwd0MPTTcUKPkRG MpYjCnFAJwZLBlKUgoRBFgJXQ4Ojo0FEOdMOKsXM4K XnLdNFHxSqWsZGliDTVoQKMchs8QXTNgOKJqHtC7WDEwQQZuIQUzFFpxXLFiCTT3WpD2UXInMCShZM3E SsQeUDHbFuo0OJfjYEVxIWSzhl9RSCWrKKZwDfmbVQMxMZHtRZHeDZbaYKLlZND6EGt3GYGxSDZaLP5U UsOwKRBwNxs0MSplEBAaIRLfne8GSYRcHNFdLWU8MM CpSDZgXNWiGEdmEKQvHQB3FqO3WMIdCOHlAC0TFoIgUEHtTYP3LTEdXWGqFRJcou2XCPWtAFI4GECcNM UmKCLbIFCcIJzdPKEgADUmRnV1SAUqEVTmRR1UMqDeITKoEQN1PqwuFDQjFGRhak3DWFReSHS0HWrpFi NfXBZuDNYyVHrsZXAlTIPjJYG1QIUhPDRlAV2WMzWx XCMlSEK2CsLvNPVsTPYqul6EZWLrCGJ1DzM3GJIiZEYaXYFbMBbpNULdWAZtYNI6URXsCAYoLE3IReCy IDtyIFDPGhr0YAtbZ2b0DXC1WP2KA9Xlh9LoTipyDTXKOBocBL0ktxTzYQGmNa5VK1qXWif0O9F2FOUa GYcgUaO2FEK5KlB0FBzgFCQ8HUI0OiNwSg7wGUseUV OvCKTiCSPbCSYpSdzdCHnkVEU6ZJx2WinpEzLnSpTjSZ9JVa6OKfJ9RVY5bNHeVu8VGYIuFAGAYyDkGW 9GDQo= ID Date Data Source [id number] 06/29/2020 08:37:00 PM [facility] ReportName: MARGA REYNOLDSMRN: [id number] Number: [id number] Date: 06/27/2020 09:26Received Date: 06/28/2020 09:26Physician(s): AUREA PIEDAR MD MESTAD, RENEE ESpecimen(s) ReceivedA: Endometrial biopsyClinical HistoryPost-menopausal bleeding. DiagnosisENDOMETRIUM, BIOPSY: INACTIVE ENDOMETRIUM. NO EVIDENCE OF ATYPIA ORMALIGNANCY.Ramo Fajardo M.D.;Resident PathologistElectronically Signed By Trino Joshi M.D., Attending Pathologist06/29/2020 20:37:39 The attending pathologist named above attests that he/she has personallyreviewed the relevant preparation(s) for the specimen, performedmicroscopic examination when indicated, and rendered the final diagnosis.Unless 'gross-only' is specified, the final diagnosis is based on amicroscopic examination of premium service representative sections of tissue.Gross DescriptionThe specimen is received in formalin labeled with the patient's name"Marga Saleh" and "EMB". It consists of hemorrhagic tissuefragments and clotted blood measuring 1.0 x 1.0 x 0.2 cm in aggregate. Totally submitted in one cassette. ND/pmwThis report may include one or more immunohistochemical stain results thatuse analyte specific reagents. All positive and negative controls havebeen reviewed by the attending pathologist and are satisfactory. The testswere developed and their performance characteristics determined by [facility] Pathology department. They have not been cleared or approved by the USFood and Drug Administration. The FDA has determined that such clearanceor approval is not necessary. Name Value Range Interpretation Code Description Data Trena rce(s) Supporting Document(s) ID Date Data Source [id number] 06/27/2020 09:21:34 AM [facility] Name Value Range Interpretation Code Description Data [facility](s) Supporting Document(s) [facility] WIREKn0uDmHLXrWx82/KGAttQDUej1XvIGynSWy6INndJGDhG0GqFHF4pH7sVKH4KHmDJpEdUqDcQBM1 m [file] QRa2McCxUPK9UMWaFGS9Gb3lPJTHMx8+HHvktPWkyObiRUXDQjtuJTjUXgOgFN0IJQm= ID Date Data Source [id number] 06/27/2020 05:12:25 AM [facility] Name Value Range Interpretation Code Description Data Trena e(s) Supporting Document(s) Bicarbonate [Moles/volume] in Serum 28 mmol/L 22-29 [facility] Chloride [Moles/volume] in Serum or Plasma 97 mmol/L 98-107 L [facility] Creatinine [Mass/volume] in Serum or Plasma 0.86 mg/dL 0.50-0.90 [facility] Glucose [Mass/volume] in Serum or Plasma 127 mg/dL 70-140 [facility] Potassium [Moles/volume] in Serum or Plasma 3.6 mmol/L 3.4-5.1 [facility] Sodium [Moles/volume] in Serum or Plasma 133 mmol/L 136-145 L [facility] Urea nitrogen [Mass/volume] in Serum or Plasma 15 mg/dL 8- [facility] Confirmed Anion gap 3 in Serum or Plasma 8 mmol/L 8- [facility] Osmolality of Serum or Plasma by calculation 278 mosm/kg 275-300 [facility] Confirmed Creatinine/Urea nitrogen [Mass Ratio] in Serum or Plasma 17 [facility] Confirmed Calcium [Mass/volume] in Serum or Plasma 8.7 mg/dL 8.8-10.2 L [facility] Glomerular filtration rate/1.73 sq M pre dicted among non-blacks [Volume Rate/Area] in Serum or Plasma by Creatinine-based formula (MDRD) 71 mL/min/1.73m2 >60 [facility] Glomerular filtration rate/1.73 sq M pre dicted among blacks [Volume Rate/Area] in Serum or Plasma by Creatinine-based formula (MDRD) 82 mL/min/1.73m2 >60 [facility] ID Date Data Source [id number] 06/26/2020 03:08:19 PM [facility] Name Value Range Interpretation Code Description Data Trena e(s) Supporting Document(s) [facility] ZLNGNg3lPeWWMcSm98/FKXdfNKZph7WiDJncLIt3DAlyCRQiL6PlQDM6tY8wJBH1TPsRSvSzHfNwWQH7 lbm [file] AgICAgICAgICAgICAgICAgICAgICAgICAgICAgICAgICAgICAgICAgICAgICAgICAgICAgICAgICAgIC DmMKWeWZMxRT2DRMRhEFUjURTlBDMiKZHiBJYtPRVb ICAgICAgICAgICAgICAgICAgICAgICAgICAgICAgICAgICAgICAgICAgICAgICAgICAgICAgICAgICAg DLNkMMUrSFCzEBWqDFOaXKBgSX1YKMXiJFPuIOIwZCXpKOJmSPLtECIeCFDfIJAbPQCqQWLnKMJoNKMz ICAgICAgICAgICAgICAgICAgICAgICAgICAgICAgIC LeXOSzWMGoPZJlICKwFZSqWYNcQKCsLIPcKIOkDA0XZNQdPDUeXWFsXOYyYSReUXXcBIFtJCSpVMDhGT AgICAgICAgICAgICAgICAgICAgICAgICAgICAgICAgICAgICAgICAgICAgICAgICAgICAgICAgICAgIC YxOJPxJVVvLPVwNI9LDEPuNOOoZOAwFBSpLEPmEOGb ICAgICAgICAgICAgICAgICAgICAgICAgICAgICAgICAgICAgICAgICAgICAgICAgICAgICAgICAgICAg UVRiXDMxKHSeFGOsWGGmDEWvOASdIH2VQCSoGJFnOILiNWKzOGArAQNqMVMaDKNdAKGfECMmANFsKIWd ICAgICAgICAgICAgICAgICAgICAgICAgICAgICAgIC DvVWNvXMHfAUPjFMSrZPWsALVaMVEfORFiNZIdXNDlUH3AUSEcGHBdYZVpFTPuSZQyOZAdLAUpMOPrVZ AgICAgICAgICAgICAgICAgICAgICAgICAgICAgICAgICAgICAgICAgICAgICAgICAgICAgICAgICAgIC OqOAWnSWHhGJKxIVGdWN6DXONdYRKdTSToRICxSIRo ICAgICAgICAgICAgICAgICAgICAgICAgICAgICAgICAgICAgICAgICAgICAgICAgICAgICAgICAgICAg CANyQFWxWIGsZXNxUTEbFHOrPCMtPPSiSV4TVDFuKEOuXDMyURFvQXEhKWMuAMVaPUJsRBSgWMYyTXUb ICAgICAgICAgICAgICAgICAgICAgICAgICAgICAgIC UpRBNoCYRkFVUiEJQaAYDpTGXhWQKxOGWqJCKgZCWpVGIrOL3HDAFwZUNjPLHnDZUtMILxPKLpAOOyCL AgICAgICAgICAgICAgICAgICAgICAgICAgICAgICAgICAgICAgICAgICAgICAgICAgICAgICAgICAgIC HzYLXoXELrBUCxGTPgKTTgGI8BXI64wNXsl4N1PJVx GT7xgvc/Oc6FZBmymzOqeYIoSB3JVxObDH2eov6MElNxVI9vrv7QUXqHEpDbD3W8uDXjHXOyBRCKOrBk S98wHZjeDk21JYmvBZNrPdXzPOr6Zh0YAsXiK3wtBTUlBzA5BQSkWdG5YPSnCnW8VYJyToXdQHZdBZYw TMUzGYKJGEF6BDDdCvZdZzOwIKXwDH6UWUHvL280si YjTs0BKv1EFyIpYL9gbn9YCxNhSRMuIzzGFen8WDarGD9NsJQamRZoFfXaGWIYAuLuN6sgv2SqJmOwJU QXWVgcZX4Le7BgbPLtXLc+Gn1HGI8iv2MgTGniFpYuPV8uvr5TAUqPQeKdX7RzgHzcRWNwtuC3rPXqKQ X1JUR8liCrWYXeBOB8JTokMHOoGHDsBX8iEB8tZZXt ZZUrNsH9GGIJCZ3ZAEYqOQBntEWdSIKvAMSOFW4LTKvdJAS9RPNhrbMqxMLnLPpvQS9XXPYajgYfRrUh MCBSDQo+Hx4FLN9ev6FbVQibGtArYC9kfs4OWLhKJtJvP8I8aPMiT2E6KEebVu6TEJYrZSLpUwyrPAMB ZNuiDR3CQF6ehvQ2JF7TcBWoHBZfVNKlgRWiOZz7W0 1qeQYkWHuiTJ7GVVA+Govind+Xq8WGEReSOAkSYXbHoOdOEOXFeIeQ7DpK4REf7OaE4SyDX90fHctipVvZM siWE8JTM4sXMQwHRXYFS3PnLLxqH0tlhWbGIYwKWMLYaDyR89otNByCYHxJKWmLZBtRz2XYHMaI5Cyps ZijPwppjElLWDcTQAAOZ9LYFmivoQtcSOueZvjCD75 nAbdOX8JCs2SRcKrKR5xjh8OyLWfRk4AAIKnCS7TPBDnTPKuJTCcPYQ1RLRuZoVvXAieYBPuCCIzXQL4 EAZxLIKvHT2FCxLxUTZaNPE7TGjhADOaESFsng0YJPBkFYV9UFG2QENcZIRvSTQqEZrzBGXxWCQcKXC2 ARXzJROyLX4KQzNyONJgNQSqJjXiEBRfVTTpsv3WHE LdZTMoNtMzKDDeFVDgOMTnXNdsNGHpMKD5MRCnXVLcNPVbLG2ORhIuCZVlCXGjKEnvBFZoSTQzrg0OUY ZtUDQpVHbzHuCuMALtTKVlUHltWKHdPCSeVPP1FMLhXBRcYS4XIbHsSXJbKDV4CbFaIKKzCZYidj0YTI LdQBMrCXE4OjXpBGHjNBNbJXaqMTMkSWWdMjb5FPLl HFSdNQ8LPtStJVJaDuJ5ATIlASAeVXIths9XPVHhDYEtXdBoHfLrUACwKGEwEHtwRJBgKLN6ZfDrILYl GYUpCA9WRnUlZVZhCetvKzWzUSPlQFHiee1GLHXvKETgQmE3JKRmSIBvSYXoSMvnXSJmUVI1BHMuWLYe OOLjXP1DYgWtLCXlOge6PTfaVDMbREPgzi0JMZIbRT HnAYb3EZSxERXzUSZdSNboHUXnXYM1SZSnLGYxUEDzPB3UTqFvRIYbUkMjZWQrNVHkHGHglg8UUVKoQM IiNZZfWFRlXARpGYBkSVyyIVTtUVIkHqC3UPTkBJVaOS2UDwOoXAXuFQA8VwDnRLWqLAUsvd3EZCCaTY T6KfW5GfZuWSXhELZtNQxhHUTiGBUiUnsmGOZyPZEp QR5SGnCaYPSaFCE8YzubBVUcJMEdsz1UKUKdIHH9WlizUEArCJUaCBWrWHprDNJvFKA3GZA9AFUtQAOs EV6HDxQuRCUsHWT1QbwnYGVsZKAjpn3ZJUHhZVO2TLLqGELmICDgVOVdHOb4pzZfuBHrBYa1ZZ7NU3Tv vvDtPuTGNq3Di311FNHyKEViVx6KQ9rfJm9qYOYcOU NMMq2PQGp9DcF9DEKhThcjTHYxQNX1HcPyIVAvHcWqGGCsVaH3IFE+SOwtCgJmFKLnNCNeUPO6JNHqQF TrKvYjWEL6ZXYvTqu6MC9sFJYUKn1+KTpldWJxaEpuKNFULvP6LTYfKKxwRGSWIb2I ID Date Data Source [id number] 06/26/2020 01:41:18 PM [facility] US TRANSVAGINAL [id number] RESULTInterpr eted by:Gris Muñoz MDULTRASOUND PELVIS TRANSVAGINAL. INDICATION: Postmenopausal bleeding.TECHNIQUE: Multiple real-time transvaginal sonographic images of the pelvis were obtained. COMPARISON: NoneFINDINGS: The uterus is normal and measures 9.5 x 5.0 x 7.1 cm, corresponding to a volume of 174 cc. Solid isoechoic lesion is noted in the uterine fundus measuring 4.7 x 4.3 x 4.3 cm. The endometrial stripe is suboptimally measured due to distortion from the large fundal fibroid.The right ovary measures 2.2 x 1.0 x 1.2 cm, corresponding to a volume of 1 cc. The left ovary measures 3.2 x 1.5 x 2.5 cm, corresponding to a volume of 6 cc. Left ovarian simple cyst measures 1.3 x 1.0 x 1.3 cm.No free fluid is noted in the pelvis. IMPRESSION:1. Large intramural fibroid in the uterine fundus, which distorts the endometrium. This limits evaluation of endometrial thickness. MRI pelvis is recommended to further evaluate and to adequately measure thickness of the endometrium.2. Left ovarian simple cyst.This document has been electronically signed by Gris Muñoz MD on 06/26/2020 1:39 PM Name Value Range Interpretation Code Description Data Trena rce(s) Supporting Document(s) ID Date Data Source [id number] 06/26/2020 01:14:15 PM [facility] Name Value Range Interpretation Code Description Data Trena rce(s) Supporting Document(s) Leukocytes [#/volume] in Blood by Automated count 10.0 10*3/uL 4-10 [facility] Erythrocytes [#/volume] in Blood by Automated count 4.61 10*6/uL 4.1- 5.3 [facility] Hemoglobin [Mass/volume] in Blood 14.4 g/dL 11.5-15.5 [facility] Hematocrit [Volume Fraction] of Blood by Automated count 43.6 % 3 6-45 [facility] Erythrocyte mean corpuscular volume [Entitic volume] by Auto mated count 94.7 fL 80-96 [facility] Erythrocyte mean corpuscular hemoglobin [Entitic mass] by Automated count 31.4 pg 27-33 [facility] Erythrocyte mean corpuscular hemoglobin concentration [Mass/volume] by Automated count 33.1 g/dL 32.0-36.0 [facility] width [Ratio] by Automated count 14.0 % 11.5-14.5 [facility] Platelets [#/volume] in Blood by Automated count 276 10*3/uL 150-400 [facility] Differential cell count method - Blood [facility] Neutrophils/100 leukocytes in Blood by Automated count 75 % [facility] Lymphocytes/100 leukocytes in Blood by Automated count 18 % [facility] Monocytes/100 leukocytes in Blood by Automated count 5 % [facility] Eosinophils/100 leukocytes in Blood by Automated count 1 % [facility] Basophils/100 leukocytes in Blood by Automated count 1 % [facility] Neutrophils [#/volume] in Blood by Automated count 7.61 10*3/uL 1.8-7 .0 H [facility] Lymphocytes [#/volume] in Blood by Automated count 1.77 10*3/uL 1.2-4 .0 [facility] Monocytes [#/volume] in Blood by Automated count 0.51 10*3/uL 0-0.8 [facility] Eosinophils [#/volume] in Blood by Automated count 0.07 10*3/uL 0-0.5 [facility] Basophils [#/volume] in Blood by Automated count 0.07 10*3/uL 0-0.2 [facility] Nucleated erythrocytes/100 leukocytes [Ratio] in Blood by Automated count 0 /100{WBCs} 0-0 [facility] ID Date Data Source [id number] 06/26/2020 11:54:37 AM [facility] Name Value Range Interpretation Code Description Data Trena rce(s) Supporting Document(s) Thyroperoxidase Ab [Units/volume] in Serum or Plasma 195.7 IU/mL <9.0 H [facility] ID Date Data Source [id number] 06/26/2020 04:18:48 AM [facility] Name Value Range Interpretation Code Description Data Trena rce(s) Supporting Document(s) Bicarbonate [Moles/volume] in Serum 28 mmol/L 22-29 [facility] Chloride [Moles/volume] in Serum or Plasma 100 mmol/L 98-107 [facility] Creatinine [Mass/volume] in Serum or Plasma 0.69 mg/dL 0.50-0.90 [facility] Glucose [Mass/volume] in Serum or Plasma 102 mg/dL 70-140 [facility] Potassium [Moles/volume] in Serum or Plasma 3.8 mmol/L 3.4-5.1 [facility] Sodium [Moles/volume] in Serum or Plasma 136 mmol/L 136-145 [facility] Urea nitrogen [Mass/volume] in Serum or Plasma 9 mg/dL 8-23 [facility] Anion gap 3 in Serum or Plasma 8 mmol/L 8-15 [facility] Osmolality of Serum or Plasma by calculation 281 mosm/kg 275-300 [facility] Creatinine/Urea nitrogen [Mass Ratio] in Serum or Plasma 13 [facility] Calcium [Mass/volume] in Serum or Plasma 8.8 mg/dL 8.8-10.2 [facility] Glomerular filtration rate/1.73 sq M pre dicted among non-blacks [Volume Rate/Area] in Serum or Plasma by Creatinine-based formula (MDRD) >6 0 [facility] Glomerular filtration rate/1.73 sq M pre dicted among blacks [Volume Rate/Area] in Serum or Plasma by Creatinine-based formula (MDRD) >60 [facility] ID Date Data Source [id number] 06/26/2020 08:26:29 AM [facility] Name Value Range Interpretation Code Description Data Trena rce(s) Supporting Document(s) Thyroxine (T4) free [Mass/volume] in Serum or Plasma 0.84 ng/dL 0.93- 1.70 L [facility] ID Date Data Source [id number] 06/26/2020 08:26:29 AM [facility] Value Range Interpretation Code Description Data Trena rce(s) Supporting Document(s) Triiodothyronine (T3) [Mass/volume] in Serum or Plasma 115.0 0 ng/dL 80.00-200.00 [facility] ID Date Data Source [id number] 06/25/2020 09:48:46 AM [facility] Value Range Interpretation Code Description Data Trena rce(s) Supporting Document(s) [facility] GJOIQp2bVeNGZuVus7BgHnMjJUHgHG8kbmm2T8B2rIIiV3CpkTDre5joC7VfI0UdHQEtXXPWWX0ZeIOb jb2 [file] personal attendant/Auobx6221QOTpBHoeoTKpDJ81wi5/vm+9CQpbY2hcy3j++AygbWlj4xgkVCQ1lPk2+xGeR912vVLB G/+Ts+0w/V/F5cd2AWV4kd9pqbvxZz8H3r/D1a73lH1U83S2id6S7O21Rlgn/+Urjrg4d/ngHJ962x8p TECHNOLOGY SALES CONSULTANT+K8R3dOf11bw6lWm5tF+f+TSmsXa3TqP5cXNEjb+ 2snepio3XbwRj/vN9uD+9S+P+362RQ30y5+j36+cO77v7/iOv/Mr/7s26on28jgg2rfTayZ4r5qq/YFy zlfPG/yr4GuWeWez9zu/i1iZhmM5n3lZ0E+FQkvu706mJPz+9Y+MFVAD3VPxqnXyTuTJ7NXpe+u9buRC zAaULmSqq4GLNgJ7rQGRlQAw6iNRfXPzDEdqlotI2+ Francoise+lSlvPDclx98kOfn2gHXE+guVomsh+zj10W6KBi7C391efCmbG7e9/mg9/nN/HB9xm+3/L9qm3NfO [file] uo+/CKTK9RZdtgj+smc9WddfPc0wfVAdD2vmn4i [file] z0OmceQ9zaSrCvqmRVG5SkPsFV6T ID Date Data Source [id number] 06/25/2020 07:22:07 AM [facility] Name Value Range Interpretation Code Description Data Trena e(s) Supporting Document(s) History and Physical [facility] LTJCKp2oBwWSWqNr09/RPHhqEKKux1DbWYnePPh8ZIhdVUYhE3ZmXVI9mC7cGEC8QHmMNmPwAvUrMXR5 lbm [file] AgICAgICAgICAgICAgICAgICAgICAgICAgICAgICAgICAgICAgICAgICAgICAgICAgICAgICAgICAgIC AgICAgICAgICAgICAgICAgICAgICAgICAgICAgDQogICAgICAgICAgICAgICAgICAgICAgICAgICAgIC AgICAgICAgICAgICAgICAgICAgICAgICAgICAgICAg ICAgICAgICAgICAgICAgICAgICAgICAgICAgICAgICAgICAgICAgDQogICAgICAgICAgICAgICAgICAg ICAgICAgICAgICAgICAgICAgICAgICAgICAgICAgICAgICAgICAgICAgICAgICAgICAgICAgICAgICAg ICAgICAgICAgICAgICAgICAgICAgDQogICAgICAgIC AgICAgICAgICAgICAgICAgICAgICAgICAgICAgICAgICAgICAgICAgICAgICAgICAgICAgICAgICAgIC AgICAgICAgICAgICAgICAgICAgICAgICAgICAgICAgDQogICAgICAgICAgICAgICAgICAgICAgICAgIC AgICAgICAgICAgICAgICAgICAgICAgICAgICAgICAg ICAgICAgICAgICAgICAgICAgICAgICAgICAgICAgICAgICAgICAgICAgDQogICAgICAgICAgICAgICAg ICAgICAgICAgICAgICAgICAgICAgICAgICAgICAgICAgICAgICAgICAgICAgICAgICAgICAgICAgICAg ICAgICAgICAgICAgICAgICAgICAgICAgDQogICAgIC AgICAgICAgICAgICAgICAgICAgICAgICAgICAgICAgICAgICAgICAgICAgICAgICAgICAgICAgICAgIC AgICAgICAgICAgICAgICAgICAgICAgICAgICAgICAgICAgDQogICAgICAgICAgICAgICAgICAgICAgIC AgICAgICAgICAgICAgICAgICAgICAgICAgICAgICAg ICAgICAgICAgICAgICAgICAgICAgICAgICAgICAgICAgICAgICAgICAgICAgDQogICAgICAgICAgICAg ICAgICAgICAgICAgICAgICAgICAgICAgICAgICAgICAgICAgICAgICAgICAgICAgICAgICAgICAgICAg ICAgICAgICAgICAgICAgICAgICAgICAgICAgDQogIC AgICAgICAgICAgICAgICAgICAgICAgICAgICAgICAgICAgICAgICAgICAgICAgICAgICAgICAgICAgIC RgDIDpRVEoJWSnEJWfOWViOWGoFGCgAJWxJQMmPRZdPVWjJKZqTYh9W7duZYHrLNYwZE8fTQh8Rn0+DQ dBCbJoCZS0iyFtwO2FCR1ah5UuISpdFYYst9MuCVk4 ET3EGQRwSTwvLV0TBQcdhx1LDUUgVDLukHVVo9rlXqKrHRQ1FMKqWidgDD4XKMTmH8mptdQpVSZqNDHH BGtkNBSCMGPmLRTqWlDwNoYyOXEuRNIpJWDUER3MDiDcE5BbfX83THIOCx7+DQplbmRvYmoNCjMxIDAg u8ZvPLg4IJ8FAXYeGsbwh8XkSlEeYUSPBFsaQM4EFO W7TKZiXKNnFr5RYOMfT885ieWjAW9ZZr3MDaHmJO9fxr9PIuWpFDMxVxiJVny6FDxeHZ7PnGKvTIpRUx QfBgdvVKHfmbLaI4gjXQxyIS5JOhUdKMEjZL5hJi2hTKGhWLVpCzYaXOHFGC3DDJFaEMHjmWKgUYAmTS UMXT5JMEfxCZZ2TFNqluDlsXJqHSiaRK7PZWCaijRd MzEgMCBSDQo+Yu6IEV1cr3DaJCy9EUAnj1ExTJh2RO7PETOhKIjgFBSaOZ2zb9UbA9F7JdO9tEBrJ4sg ykyuQ2MzowQfkgCrAYLyVCPjKC1CJA8WEO6AMIMuCUhgFG9IMFK7YQdmIxKlZcD1AEH3LoJkPGHhPF8Z SQJuKWY1CO7UZD0XUkmuQ1VPBDzVcYkzJNICYdFYLr ybWEUyZ1QKW4aBN2uOK1DkS16PV07kZ2ZRWX1WO0QRQRiqJa2eVIt+Fl5CSE6zj8TrLCocTdAuLU1ekb 5PIJaVFdJlY0Q5oSJyY5Q3NNctDu7DBHVoKYWtGgjiGFZWOLuyHC3ELS5rfqV1XL6BfONaGDEcWWAftK WeGKf4W71fmVMnGBlzYD4UVZE+Govind+Hv1TCUBsZTYs TBTvDfCxVGNPUqLoG6IfL3FAn7VfW5DdDW33dNyqijRxGJdsON1HTV4oNDJfVKQKAE1HxZDtbP9gkoZu EPEjKNBWNnGjE17apZUeTFPeOHEfSCGhNd1VKJMnR6WixgYvbSjsdkHwOQBbSCAKTH4SWZmeawLxkCFu dFxdKH44cMhdBG6ETp1IAiKvGZ8mcs9GqXJaIp9GGV CrII9TANKzMXZtMAYqTUR9QDBzQaNaMYzfQGLmJBYnJZQ1JRPiWUSbRP7OCvKxJWDoLFJaBCCcMUPsXV Citm8FZZOaPZI7HdMnVpNlJJSzDYZrBVlvLYHwCWLqZWS0YYOaDUGoKE9SKlJoMSStSLZ8FZrhHINfWF Gccz2NODZrGOS1FcH3PWQwATCdVUPwWGgbXKGjRQE2 SIR8GKHpTMPtTH4DTkWgOQOxPOi9GIEzAMUaTFYshb0ORIVgNCYbZitjYnPyURWnQWCbJTehVUVeKYOp Djm4GHDrQCQrLG6AQqCnSGSyASU3YYLeYUStQEZrxu8YHIPdEUPyLWT6VLPpABGuVOVhAUfqLVPuTPQ8 Nhf4SVGcJTOmGO5NUqHwOMPaPDeoRJajZVOoCCWtmk 8RGWZpWUDvAJVrAqSgCLMkQGMrJRinXVVwUCF2DyPvEMDlCKGgIT9AOfNcHKYqLKe6IcLwGEOrJPXwno 3XLBTfSDRrWQq9LfIjLALnYORtUUwtKHOkRJEdLiYiNZWnCCYzMA3HBqFhPDEiMxN4QYHtREPiQVNjvy 9XBXDrXTGfGFD8PnLnXATxZEJoTYbkLJMbPUKmCFVg OLNhOFXjDR3TIxVeIIWoKxLmXSjbACQoDYOeew0MVNKbXUDrJwCoYpDmFEZlEOXqDYwtRZPhXEUoGWd2 NBOzSDCtKT4RBrZlLMIwSTG0FFVwNNBgDWVvfd7CHGNgJFH6CVwaVwGeTPCpPCTeWMhbISKdIBPjUDKg DTNlQOSwKY6VXnDmRCWdQGCwNZdnRARnYDAxyb3DRO RdFWP4OZV7WfMmOBCpVUYuTWaaKRMlYSQxBZFkWBOhKNLeTN1MUvCiLNYvFXGcHCEhDDYkVDWkew9RPN KyXQA6WhOjYqNcJKGeUBDtNYi0zfWkaHXcTPh0BL3WT1NnqgCrQoLTQm3Tf711ZGYsURCrZa3UL6otUb 5jRONgLHGAAr8HMLq4EMMyRYq3SjLcFTO4WYdyG0Q9 IeDtSFlcHNq1XaUfOJO+FEpvQBDxPPCeXIS5XqZ0CGJkXqczS2DuXRLiLhf9PVYwUx5fZBSORm8+DQpz aSPecXgfEWJAKpMcIny3DLfwVGWRTz1O ID Date Data Source [id number] 06/25/2020 06:56:54 AM [facility] Name Value Range Interpretation Code Description Data Trena rce(s) Supporting Document(s) Calcium.ionized [Moles/volume] in Arterial blood 1.13 mmol/L 1.13-1.3 2 [facility] ID Date Data Source [id number] 06/25/2020 05:37:41 AM [facility] Name Value Range Interpretation Code Description Data Trena rce(s) Supporting Document(s) Bicarbonate [Moles/volume] in Serum 27 mmol/L 22-29 [facility] Chloride [Moles/volume] in Serum or Plasma 102 mmol/L 98-107 [facility] Creatinine [Mass/volume] in Serum or Plasma 0.71 mg/dL 0.50-0.90 [facility] Glucose [Mass/volume] in Serum or Plasma 101 mg/dL 70-140 [facility] Potassium [Moles/volume] in Serum or Plasma 4.0 mmol/L 3.4-5.1 [facility] Sodium [Moles/volume] in Serum or Plasma 140 mmol/L 136-145 [facility] Urea nitrogen [Mass/volume] in Serum or Plasma 10 mg/dL 8-23 [facility] Anion gap 3 in Serum or Plasma 11 mmol/L 8-15 [facility] Osmolality of Serum or Plasma by calculation 290 mosm/kg 275-300 [facility] Creatinine/Urea nitrogen [Mass Ratio] in Serum or Plasma 14 [facility] Calcium [Mass/volume] in Serum or Plasma 9.1 mg/dL 8.8-10.2 [facility] Glomerular filtration rate/1.73 sq M pre dicted among non-blacks [Volume Rate/Area] in Serum or Plasma by Creatinine-based formula (MDRD) >6 0 [facility] Glomerular filtration rate/1.73 sq M pre dicted among blacks [Volume Rate/Area] in Serum or Plasma by Creatinine-based formula (MDRD) >60 [facility] ID Date Data Source [id number] 06/25/2020 05:37:41 AM [facility] Name Value Range Interpretation Code Description Data Trena rce(s) Supporting Document(s) Triiodothyronine (T3) Free [Mass/volume] in Serum or Plasma 2.65 pg/mL 2.00-4.40 [facility] ID Date Data Source [id number] 06/25/2020 05:37:41 AM [facility] Value Range Interpretation Code Description Data Trena rce(s) Supporting Document(s) Thyroxine (T4) free [Mass/volume] in Serum or Plasma 0.77 ng/dL 0.93- 1.70 L [facility] ID Date Data Source [id number] 06/25/2020 06:53:51 AM [facility] Name Value Range Interpretation Code Description Data Trena rce(s) Supporting Document(s) Magnesium [Mass/volume] in Serum or Plasma 2.1 mg/dL 1.6-2.4 [facility] ID Date Data Source [id number] 06/25/2020 06:53:51 AM [facility] Name Value Range Interpretation Code Description Data Trean rce(s) Supporting Document(s) Phosphate [Mass/volume] in Serum or Plasma 2.9 mg/dL 2.5-4.5 [facility] ID Date Data Source [id number] 06/25/2020 08:50:42 AM [facility] Name Value Range Interpretation Code Description Data Trena rce(s) Supporting Document(s) Leukocytes [#/volume] in Blood by Automated count 8.4 10*3/uL 4-10 [facility] Erythrocytes [#/volume] in Blood by Automated count 4.80 10*6/uL 4.1- 5.3 [facility] Hemoglobin [Mass/volume] in Blood 15.1 g/dL 11.5-15.5 [facility] Hematocrit [Volume Fraction] of Blood by Automated count 46.6 % 3 6-45 H [facility] Erythrocyte mean corpuscular volume [Entitic volume] by Auto mated count 97.1 fL 80-96 H [facility] Erythrocyte mean corpuscular hemoglobin [Entitic mass] by Automated count 31.5 pg 27-33 [facility] Erythrocyte mean corpuscular hemoglobin concentration [Mass/volume] by Automated count 32.4 g/dL 32.0-36.0 [facility] distribution width [Ratio] by Automated count 13.9 % 11.5-14.5 [facility] Platelets [#/volume] in Blood by Automated count 240 10*3/uL 150-400 [facility] Differential cell count method - Blood [facility] Neutrophils/100 leukocytes in Blood by Automated count 61 % [facility] Lymphocytes/100 leukocytes in Blood by Automated count 31 % [facility] Monocytes/100 leukocytes in Blood by Automated count 5 % [facility] Eosinophils/100 leukocytes in Blood by Automated count 2 % [facility] Basophils/100 leukocytes in Blood by Automated count 1 % [facility] Neutrophils [#/volume] in Blood by Automated count 5.22 10*3/uL 1.8-7 .0 [facility] Lymphocytes [#/volume] in Blood by Automated count 2.61 10*3/uL 1.2-4 .0 [facility] Monocytes [#/volume] in Blood by Automated count 0.38 10*3/uL 0-0.8 [facility] Eosinophils [#/volume] in Blood by Automated count 0.15 10*3/uL 0-0.5 [facility] Basophils [#/volume] in Blood by Automated count 0.07 10*3/uL 0-0.2 [facility] Nucleated erythrocytes/100 leukocytes [Ratio] in Blood by Automated count 0 /100{WBCs} 0-0 [facility] ID Date Data Source [id number] 06/25/2020 05:43:01 AM [facility] Name Value Range Interpretation Code Description Data Trena rce(s) Supporting Document(s) Hepatitis C virus Ab [Presence] in Serum or Plasma by Immuno assay Non Reactive [facility] No serological evidence of active infect ion. If recent exposure is suspected, test for HCV RNA. ID Date Data Source [id number] 06/24/2020 04:15:47 PM [facility] MR BRAIN WITHOUT CONTRAST [id number] RES ULTInterpreted by:Mary Gaffney MDINDICATION: Right leg weakness.TECHNIQUE:Multiplanar multisequence MR images of the brain without intravenous contrast.COMPARISON:No pertinent prior studies are available for comparison.FINDINGS:There are periventricular and subcortical white matter T2 FLAIR hyperintense lesions which are nonspecific, but could represent chronic small vessel ischemic disease.There are no areas of restricted diffusion to suggest acute infarction. No mass effect or extra-axial fluid collection is appreciated. There is no susceptibility to suggest subacute blood products. There is no midline shift. The basal cisterns are patent. The cerebellar tonsils lie above the foramen magnum which is patent.Normal flow voids in the skull base is preserved. Visualized portions of the orbits, paranasal sinuses, and mastoid air cells are normal in signal intensity. IMPRESSION:1. No evidence of acute infarct.2. Other findings as described above.This document has been electronically signed by Aaron Blackwell MD on 06/24/2020 4:13 PM Name Value Range Interpretation Code Description Data Trena rce(s) Supporting Document(s) ID Date Data Source [id number] 06/24/2020 03:35:10 PM [facility] Name Value Range Interpretation Code Description Data Trena rce(s) Supporting Document(s) Color of Urine [facility] Clarity of Urine [facility] Specific gravity of Urine by Refractometry automated 1.059 1.003 -1.030 H [facility] pH of Urine by Automated test strip 5.0 5.0-8.0 [facility] Protein [Mass/volume] in Urine by Automated test strip Neg [facility] Glucose [Mass/volume] in Urine by Automated test strip Neg [facility] Ketones [Mass/volume] in Urine by Automated test strip Neg [facility] Bilirubin.total [Presence] in Urine by Automated test strip Negative [facility] Hemoglobin [Presence] in Urine by Automated test strip Neg ative [facility] Leukocyte esterase [Presence] in Urine by Automated test strip Negative [facility] Nitrite [Presence] in Urine by Automated test strip Negati ve [facility] Leukocytes [#/area] in Urine sediment by Automated count 2 /HPF 0 -5 [facility] Erythrocytes [#/area] in Urine sediment by Automated count 3 /HPF 0-3 [facility] Epithelial cells.squamous [#/area] in Urine sediment by Auto mated count 1 /HPF None [facility] ID Date Data Source [id number] 06/24/2020 01:08:53 PM [facility] Name Value Range Interpretation Code Description Data Trena rce(s) Supporting Document(s) ED Provider Note [facility] DRQDEo6fKaDCWlAg14/WRRjzYKCzm3VoTDnbGHo9KXatAJFjD9PxJCW6rR7qSQE9JFzMTvQuQeKnSPNl lb [file] q/Ae9j38FCpVnU+fdTxK4rfvS3hQ+R3/zav/h0k/[employer] WORK[employer] [file] [id number] ID Date Data Source [id number] 06/24/2020 12:03:49 PM [facility] XR CHEST FRONTAL ONLY [id number] RESULTI nterpreted by:Josephine Nettles MDINDICATION: fall, dizziness COMPARISON: NoneTECHNIQUE: AP upright portable chest radiograph. FINDINGS:Cardiomediastinal silhouette: Mediastinum without abnormality.Lungs and Pleural spaces: No focal opacity or pleural effusion. No pneumothorax.Osseous structures: Intact.Visible upper abdomen: No visible acute pathology.IMPRESSION:No evidence of acute pulmonary disease.This document has been electronically signed by Justin Lindsay MD on 06/24/2020 12:01 PM Name Value Range Interpretation Code Description Data Trena rce(s) Supporting Document(s) ID Date Data Source [id number] 06/24/2020 11:26:[address] [facility] [address] CEREBRAL PERFUSION WITH CONTRAST [id number] TFINAL RESULTInterpreted by:Rocco Gaffney MBBSINDICATION: Right leg weakness Stroke code.TECHNIQUE: Multidetector row helical CT images of the brain were acquired before the administration of intravenous contrast. Subsequently, a CT perfusion study of the brain was performed, with quantitative and qualitative maps of cerebral blood flow, cerebral blood volume and mean transit time, following the intravenous administration of 50 mL of Omnipaque-350. Coronal, sagittal, and axial MIP images were reconstructed from the axial source data. There were no 3D volume rendered images were available at the time of this dictation. Automated dose lowering techniques and/or adjustment according to patient size were utilized for this exam.COMPARISON: None.FINDINGS:NECT: There is acute infarction in the left anterior frontal lobe. There is no acute intracranial hemorrhage. No mass effect nor midline shift.There is mild generalized cerebral volume loss with prominence of the sulci, fissures, and commensurate enlargement of ventricles. No extra-axial fluid collections are identified. There is no evidence of a displaced calvarial fracture.The visualized paranasal sinuses and mastoid air cells are clear. CTA NECK: GREAT VESSELS: There are calcified plaques at the origin of the left subclavian artery without significant stenosis. The origins of the great vessels are patent. RIGHT INTERNAL CAROTID ARTERY: No hemodynamically significant diameter stenosis or dissection. LEFT INTERNAL CAROTID ARTERY: No hemodynamically significant diameter stenosis or dissection.VERTEBRAL ARTERIES: Patent extracranial segments without significant stenosis. No dissection. 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 No large vessel occlusion or hemodynamically significant stenosis. No aneurysm, dissection or arteriovenous malformation. Dural venous sinuses are patent.OTHER: There are emphysematous changes in the visualized lung apices. There are no pulmonary nodules. Multilevel degenerative changes are present in the cervical spine.CT CEREBRAL PERFUSION: Adequate automatic arterial input fun ction (AIF) and fitted venous output function (VOF) curves were acquired.CBF < 30% volume: 0 mL.Calculated Tmax > 6.0 s volume: 9 mL.Mismatch volume: 9 mL.Mismatch ratio: Infinite.Region(s) of brain affected: None.IMPRESSION:1. There is acute infarct in the left anterior frontal lobe. No acute intracranial hemorrhage is present.2. There is no large vessel occlusion or hemodynamically significant stenosis in the cranial and cervical arteries. No aneurysm, dissection or arteriovenous malformation.3. The mismatch volume is 9 ml, the core ( CBF<30%) is 0 mL and the penumbra volume is 9ml.The critical findings we re discussed with Dr. Goldberg by Dr Sophie Aguiar on 06/24/2020 at 10:[address] Aaron Blackwell on 06/24/2020 11:07 AM: This addendum supersedes the prior report dictated on 06/24/2020 10:28 AM.Although there is hypoattenuation in the white matter of the left frontal lobe, there is no corresponding increase in mean transit time or decrease in cerebral blood volume and cerebral blood perfusion shown on the concurrently obtained CT cerebral perfusion or associated sulcal effacement to indicate that this is an acute infarction. There is is likely related to gliosis. The region of the Tmax >6.0 seconds corresponds to the region of the left cerebellopontine angle and is likely artifactual.Dr. Aaron Blackwell notified Dr. Akila Ardon of the addended findings via telephone on 06/24/2020 at 11:18 AM.This document has been electronically signed by Aaron Blackwell MD on 06/24/2020 11:24 AM Name Value Range Interpretation Code Description Data Trena rce(s) Supporting Document(s) ID Date Data Source [id number] 06/24/2020 11:26:[address] [facility] [address] ANGIOGRAPHY NECK [id number] RESULTInt erpreted by:AaronRocco Giles MBBSINDICATION: Right leg weakness Stroke code.TECHNIQUE: Multidetector row helical CT images of the brain were acquired before the administration of intravenous contrast. Subsequently, a CT perfusion study of the brain was performed, with quantitative and qualitative maps of cerebral blood flow, cerebral blood volume and mean transit time, following the intravenous administration of 50 mL of Omnipaque-350. Coronal, sagittal, and axial MIP images were reconstructed from the axial source data. There were no 3D volume re ndered images were available at the time of this dictation. Automated dose lowering techniques and/or adjustment according to patient size were utilized for this exam.COMPARISON: None.FINDINGS:NECT: There is acute infarction in the left anterior frontal lobe. There is no acute intracranial hemorrhage. No mass effect nor midline shift.There is mild generalized cerebral volume loss with prominence of the sulci, fissures, and commensurate enlargement of ventricles. No extra-axial fluid collections are identified. There is no evidence of a displaced calvarial fracture.The visualized paranasal sinuses and mastoid air cells are clear. CTA NECK: GREAT VESSELS: There are calcified plaques at the origin of the left subclavian artery without significant stenosis. The origins of the great vessels are patent. RIGHT INTERNAL CAROTID ARTERY: No hemodynamically significant diameter stenosis or dissection. LEFT INTERNAL CAROTID ARTERY: No hemodynamically significant diameter stenosis or dissection.VERTEBRAL ARTERIES: Patent extracranial segments without significant stenosis. No dissection. 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 No large vessel occlusion or hemodynamically significant stenosis. No aneurysm, dissection or arteriovenous malformation. Dural venous sinuses are patent.OTHER: There are emphysematous changes in the visualized lung apices. There are no pulmonary nodules. Multilevel degenerative changes are present in the cervical spine.CT CEREBRAL PERFUSION: Adequate automatic arterial input function (AIF) and fitted venous output function (VOF) curves were acquired.CBF < 30% volume: 0 mL.Calculated Tmax > 6.0 s volume: 9 mL.Mismatch volume: 9 mL.Mismatch ratio: Infinite.Region(s) of brain affected: None.IMPRESSION:1. There is acute infarct in the left anterior frontal lobe. No acute intracranial hemorrhage is present.2. There is no large vessel occlusion or hemodynamically significant stenosis in the cranial and cervical arteries. No aneurysm, dissection or arteriovenous malformation.3. The mismatch volume is 9 ml, the core ( CBF<30%) is 0 mL and the penumbra volume is 9ml.The critical findings we re discussed with Dr. Goldberg by Dr Sophie Aguiar on 06/24/2020 at 10:[address] Aaron Blackwell on 06/24/2020 11:07 AM: This addendum supersedes the prior report dictated on 06/24/2020 10:28 AM.Although there is hypoattenuation in the white matter of the left frontal lobe, there is no corresponding increase in mean transit time or decrease in cerebral blood volume and cerebral blood perfusion shown on the concurrently obtained CT cerebral perfusion or associated sulcal effacement to indicate that this is an acute infarction. There is is likely related to gliosis. The region of the Tmax >6.0 seconds corresponds to the region of the left cerebellopontine angle and is likely artifactual.Dr. Aaron Blackwell notified Dr. Akila Ardon of the addended findings via telephone on 06/24/2020 at 11:18 AM.This document has been electronically signed by Aaron Blackwell MD on 06/24/2020 11:24 AM Name Value Range Interpretation Code Description Data Trena rce(s) Supporting Document(s) ID Date Data Source [id number] 06/24/2020 11:26:[address] [facility] [address] ANGIOGRAPHY HEAD [id number] RESULTInt erpreted by:Rocco Gaffney MBBSINDICATION: Right leg weakness Stroke code.TECHNIQUE: Multidetector row helical CT images of the brain were acquired before the administration of intravenous contrast. Subsequently, a CT perfusion study of the brain was performed, with quantitative and qualitative maps of cerebral blood flow, cerebral blood volume and mean transit time, following the intravenous administration of 50 mL of Omnipaque-350. Coronal, sagittal, and axial MIP images were reconstructed from the axial source data. There were no 3D volume re ndered images were available at the time of this dictation. Automated dose lowering techniques and/or adjustment according to patient size were utilized for this exam.COMPARISON: None.FINDINGS:NECT: There is acute infarction in the left anterior frontal lobe. There is no acute intracranial hemorrhage. No mass effect nor midline shift.There is mild generalized cerebral volume loss with prominence of the sulci, fissures, and commensurate enlargement of ventricles. No extra-axial fluid collections are identified. There is no evidence of a displaced calvarial fracture.The visualized paranasal sinuses and mastoid air cells are clear. CTA NECK: GREAT VESSELS: There are calcified plaques at the origin of the left subclavian artery without significant stenosis. The origins of the great vessels are patent. RIGHT INTERNAL CAROTID ARTERY: No hemodynamically significant diameter stenosis or dissection. LEFT INTERNAL CAROTID ARTERY: No hemodynamically significant diameter stenosis or dissection.VERTEBRAL ARTERIES: Patent extracranial segments without significant stenosis. No dissection. 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 No large vessel occlusion or hemodynamically significant stenosis. No aneurysm, dissection or arteriovenous malformation. Dural venous sinuses are patent.OTHER: There are emphysematous changes in the visualized lung apices. There are no pulmonary nodules. Multilevel degenerative changes are present in the cervical spine.CT CEREBRAL PERFUSION: Adequate automatic arterial input function (AIF) and fitted venous output function (VOF) curves were acquired.CBF < 30% volume: 0 mL.Calculated Tmax > 6.0 s volume: 9 mL.Mismatch volume: 9 mL.Mismatch ratio: Infinite.Region(s) of brain affected: None.IMPRESSION:1. There is acute infarct in the left anterior frontal lobe. No acute intracranial hemorrhage is present.2. There is no large vessel occlusion or hemodynamically significant stenosis in the cranial and cervical arteries. No aneurysm, dissection or arteriovenous malformation.3. The mismatch volume is 9 ml, the core ( CBF<30%) is 0 mL and the penumbra volume is 9ml.The critical findings we re discussed with Dr. Goldberg by Dr Sophie Aguiar on 06/24/2020 at 10:[address] Aaron Blackwell on 06/24/2020 11:07 AM: This addendum supersedes the prior report dictated on 06/24/2020 10:28 AM.Although there is hypoattenuation in the white matter of the left frontal lobe, there is no corresponding increase in mean transit time or decrease in cerebral blood volume and cerebral blood perfusion shown on the concurrently obtained CT cerebral perfusion or associated sulcal effacement to indicate that this is an acute infarction. There is is likely related to gliosis. The region of the Tmax >6.0 seconds corresponds to the region of the left cerebellopontine angle and is likely artifactual.Dr. Aaron Blackwell notified Dr. Akila Ardon of the addended findings via telephone on 06/24/2020 at 11:18 AM.This document has been electronically signed by Aaron Blackwell MD on 06/24/2020 11:24 AM Name Value Range Interpretation Code Description Data Trena rce(s) Supporting Document(s) ID Date Data Source [id number] 06/24/2020 10:39:09 AM [facility] Name Value Range Interpretation Code Description Data Trena rce(s) Supporting Document(s) Sodium [Moles/volume] in Blood 138 mmol/L 136-145 [facility] Potassium [Moles/volume] in Blood 4.1 mmol/L 3.4-5.1 [facility] Chloride [Moles/volume] in Blood 99 mmol/L 98-107 [facility] Carbon dioxide, total [Moles/volume] in Blood 30 mmol/L 22-29 H [facility] Calcium.ionized [Moles/volume] in Blood 1.22 mmol/L 1.13-1.32 [facility] Glucose [Mass/volume] in Blood 96 mg/dL 70-140 [facility] Urea nitrogen [Mass/volume] in Blood 10 mg/dL 8-23 [facility] Creatinine [Mass/volume] in Blood 0.7 mg/dL 0.50-0.90 [facility] Hematocrit [Volume Fraction] of Blood 47 % 36-45 H [facility] Hemoglobin [Mass/volume] in Blood by calculation 16.0 g/dL 11.5-15.5 H [facility] ID Date Data Source [id number] 06/24/2020 10:39:04 AM [facility] Name Value Range Interpretation Code Description Data Trena rce(s) Supporting Document(s) Troponin I.cardiac [Mass/volume] in Blood 0.00 ng/mL 0.00-0.08 [facility] ID Date Data Source [id number] 06/24/2020 10:16:00 AM [facility] Name Value Range Interpretation Code Description Data Trena rce(s) Supporting Document(s) SARS-CoV-2 RNA 2019 nCoV Real-Time RT-PCR: NOT DETECTED [facility] This lab was ordered by [facility] and reported by [facility]. ID Date Data Source [id number] 06/25/2020 06:21:03 AM [facility] Name Value Range Interpretation Code Description Data Trena rce(s) Supporting Document(s) Specimen source [Identifier] of Unspecified specimen [facility] SARS-CoV-2 RNA 2019 nCoV Real-Time RT-PCR: NOT DETECTED [facility] Assay Performed [facility] Patients first test for [facility] Patient employed in healthcare setting [facility] Patient has symptoms related to [facility] When did you start to experience these symptoms [Date and time] [Phen X] [facility] Patient was hospitalized because of this [facility] patient was admitted to ICU for [facility] Patient resides in a congregate care setting [facility] status [facility] ID Date Data Source [id number] 06/24/2020 12:43:48 PM [facility] Value Range Interpretation Code Description Data Trena rce(s) Supporting Document(s) Hemoglobin A1c/Hemoglobin.total in Blood by HPLC 5.6 % 4.0-6.0 [facility] (NOTE)<5.7% Average risk of diabetes (ADA)5.7-6.4% Increased risk of diabetes(ADA)>/= 6.5% Diagnostic for diabetes(ADA) Glucose mean value [Mass/volume] in Blood Estimated fr om glycated hemoglobin 115 mg/dL <126 [facility] ID Date Data Source [id number] 06/24/2020 10:38:28 AM [facility] Value Range Interpretation Code Description Data Trena rce(s) Supporting Document(s) Leukocytes [#/volume] in Blood by Automated count 9.0 10*3/uL 4-10 [facility] Erythrocytes [#/volume] in Blood by Automated count 4.56 10*6/uL 4.1- 5.3 [facility] Hemoglobin [Mass/volume] in Blood 14.4 g/dL 11.5-15.5 [facility] Hematocrit [Volume Fraction] of Blood by Automated count 43.8 % 3 6-45 [facility] Erythrocyte mean corpuscular volume [Entitic volume] by Auto mated count 96.0 fL 80-96 [facility] Erythrocyte mean corpuscular hemoglobin [Entitic mass] by Automated count 31.6 pg 27-33 [facility] Erythrocyte mean corpuscular hemoglobin concentration [Mass/volume] by Automated count 32.9 g/dL 32.0-36.0 [facility] E[facility] distribution width [Ratio] by Automated count 14.1 % 11.5-14.5 [facility] Platelets [#/volume] in Blood by Automated count 226 10*3/uL 150-400 [facility] Differential cell count method - Blood [facility] Neutrophils/100 leukocytes in Blood by Automated count 73 % [facility] Lymphocytes/100 leukocytes in Blood by Automated count 19 % [facility] Monocytes/100 leukocytes in Blood by Automated count 6 % [facility] Eosinophils/100 leukocytes in Blood by Automated count 1 % [facility] Basophils/100 leukocytes in Blood by Automated count 1 % [facility] Neutrophils [#/volume] in Blood by Automated count 6.54 10*3/uL 1.8-7 .0 [facility] Lymphocytes [#/volume] in Blood by Automated count 1.73 10*3/uL 1.2-4 .0 [facility] Monocytes [#/volume] in Blood by Automated count 0.56 10*3/uL 0-0.8 [facility] Eosinophils [#/volume] in Blood by Automated count 0.10 10*3/uL 0-0.5 [facility] Basophils [#/volume] in Blood by Automated count 0.08 10*3/uL 0-0.2 [facility] Nucleated erythrocytes/100 leukocytes [Ratio] in Blood by Automated count 0 /100{WBCs} 0-0 [facility] ID Date Data Source [id number] 06/24/2020 10:52:11 AM [facility] Value Range Interpretation Code Description Data Trena rce(s) Supporting Document(s) Prothrombin time (PT) 13.1 s 12.5-14.9 [facility] INR in Platelet poor plasma by Coagulation assay 0.98 [facility] Routine intensity oral anticoagulation I NR is typically 2.0-3.0. Target INR must be clinically individualized. ID Date Data Source [id number] 06/24/2020 11:04:08 AM [facility] Value Range Interpretation Code Description Data Trena rce(s) Supporting Document(s) Albumin [Mass/volume] in Serum or Plasma by Bromocresol green (BCG) dye binding method 3.5 g/dL 3.5-5.2 [facility] Bilirubin.total [Mass/volume] in Serum or Plasma 0.3 mg/dL <1.2 [facility] Bilirubin.direct [Mass/volume] in Serum or Plasma <0.3 [facility] Alkaline phosphatase [Enzymatic activity/volume] in Serum or Plasma 94 U/L 35-104 [facility] Aspartate aminotransferase [Enzymatic activity/volume] in Serum or Plasma 17 U/L <32 [facility] Alanine aminotransferase [Enzymatic activity/volume] in Seru m or Plasma 12 U/L <33 [facility] Protein [Mass/volume] in Serum or Plasma 6.7 g/dL 6.4-8.3 [facility] ID Date Data Source [id number] 06/24/2020 11:30:20 AM [facility] Name Value Range Interpretation Code Description Data Trena rce(s) Supporting Document(s) Natriuretic peptide.B prohormone N-Terminal [Mass/volu me] in Serum or Plasma 332 pg/mL <125 H [facility] ID Date Data Source [id number] 06/24/2020 11:30:20 AM [facility] Name Value Range Interpretation Code Description Data Trena rce(s) Supporting Document(s) Thyrotropin [Units/volume] in Serum or Plasma 13.000 u[IU]/mL 0.270-4 .200 H [facility] ID Date Data Source [id number] 06/24/2020 11:30:20 AM [facility] Name Value Range Interpretation Code Description Data Trena rce(s) Supporting Document(s) Cholesterol [Mass/volume] in Serum or Plasma 181 mg/dL <200 [facility] Triglyceride [Mass/volume] in Serum or Plasma 137 mg/dL <150 [facility] Cholesterol in HDL [Mass/volume] in Serum or Plasma 45 mg/dL >50 L [facility] Cholesterol in LDL [Mass/volume] in Serum or Plasma by calcu lation 109 mg/dL <100 H [facility] Cholesterol in VLDL [Mass/volume] in Serum or Plasma by calc ulation 27 mg/dl 16-42 [facility] Cholesterol non HDL [Mass/volume] in Serum or Plasma 136 mg/dL <130 H [facility] ID Date Data Source [id number] 06/24/2020 11:30:20 AM [facility] Name Value Range Interpretation Code Description Data Trena rce(s) Supporting Document(s) Bicarbonate [Moles/volume] in Serum 29 mmol/L 22-29 [facility] Chloride [Moles/volume] in Serum or Plasma 102 mmol/L 98-107 [facility] Creatinine [Mass/volume] in Serum or Plasma 0.77 mg/dL 0.50-0.90 [facility] Glucose [Mass/volume] in Serum or Plasma 97 mg/dL 70-140 [facility] Potassium [Moles/volume] in Serum or Plasma 4.2 mmol/L 3.4-5.1 [facility] Sodium [Moles/volume] in Serum or Plasma 139 mmol/L 136-145 [facility] Urea nitrogen [Mass/volume] in Serum or Plasma 9 mg/dL 8-23 [facility] Anion gap 3 in Serum or Plasma 8 mmol/L 8-15 [facility] Osmolality of Serum or Plasma by calculation 287 mosm/kg 275-300 [facility] Creatinine/Urea nitrogen [Mass Ratio] in Serum or Plasma 12 [facility] Calcium [Mass/volume] in Serum or Plasma 8.5 mg/dL 8.8-10.2 L [facility] Glomerular filtration rate/1.73 sq M pre dicted among non-blacks [Volume Rate/Area] in Serum or Plasma by Creatinine-based formula (MDRD) 88 mL/min/1.73m2 >60 [facility] Glomerular filtration rate/1.73 sq M pre dicted among blacks [Volume Rate/Area] in Serum or Plasma by Creatinine-based formula (MDRD) >60 [facility] ID Date Data Source [id number] 06/24/2020 11:30:20 AM [facility] Name Value Range Interpretation Code Description Data Trena rce(s) Supporting Document(s) Troponin T.cardiac [Mass/volume] in Serum or Plasma <0.01 [facility] ID Date Data Source [id number] 06/24/2020 11:04:48 AM [facility] Name Value Range Interpretation Code Description Data Trena rce(s) Supporting Document(s) ABO and Rh group [Type] in Blood [facility] Blood group antibody screen [Presence] in Serum or Plasma [facility] Blood bank comment [facility] Procedure Social History Code Duration Value Status Description Data Source(s ) Smoking 07/03/2020 12:00:00 AM EST Former Smoker completed Former Smoker eCW1 ([facility]) Vital Signs ID Date Data Source UNK Name Value Range Interpretation Code Description Data Source(s) Diastolic blood pressure 60 mm[Hg] 60 mm[Hg] eCW1 ([facility]) Systolic blood pressure 178 mm[Hg] 178 mm[Hg] e CW1 ([facility]) Body temperature 98.1 [degF] 98.1 [degF] eCW1 ( [facility]) Respiratory rate 18 /min 18 /min eCW1 ([facility]) Heart rate 92 /min 92 /min eCW1 ([facility]) Body mass index (BMI) [Ratio] 37.30 kg/m2 37.30 kg/m2 eCW1 ([facility]) Body height [in_i] eCW1 ([facility]) Body weight 191 [lb_av] 191 [lb_av] eCW1 ([facility]) Diastolic blood pressure 90 mm[Hg] 90 mm[Hg] eCW1 ([facility]) Systolic blood pressure 178 mm[Hg] 178 mm[Hg] e CW1 ([facility]) Body mass index (BMI) [Ratio] 37.30 kg/m2 37.30 kg/m2 eCW1 ([facility]) Body height [in_us] eCW1 ([facility]) Body weight Measured 191 [lb_av] 191 [lb_av] eC W1 ([facility]) ID Date Data Source [id number] 07/07/2020 11:29:35 AM [facility] Name Value Range Interpretation Code Description Data Source(s) WEIGHT RECORDED 185.6 lb 185.6 lb [facility] Body height Measured 63 in 63 in [facility] ID Date Data Source [id number] 07/06/2020 07:43:41 AM [facility] Name Value Range Interpretation Code Description Data Source(s) WEIGHT RECORDED 188.71 lb 188.71 lb [facility] Body height Measured 63 in 63 in [facility] Patient Treatment Plan of Care Planned Activity Planned Date Details Description Data Source (s) cetirizine hydrochloride 10 MG Oral Tablet [Zyrtec] 07/03/19 12:00:00 AM EST eCW1 ([facility])
--- OUTSIDE RECORDS SUMMARY | 2020-07-12 16:46 | CCD ---
Author Author [facility] Address Unknown Phone Unavailable Care Team Providers Care Manager School Name Role Phone Tootie Solares Unavailable PROBLEMS Type Condition ICD9-CM Code [id number] Code Onset Dates Condition S tatus W/U Status Risk SNOMED Code Notes Problem Cigarette nicotine dependence without complication F17.210 Active confirmed 79236222 Problem Hypertension, unspecified type I10 Active confir med 70801152 Problem Left-sided cerebrovascular accident (CVA) I63.9 Active confirmed 966574322 Problem Morbid obesity due to excess calories E66.01 Ac tive confirmed 159558221 Problem Acquired hypothyroidism E03.9 Active confirmed 967124291 Problem Vitamin D deficiency E55.9 Active confirmed 79695003 Problem PMB (postmenopausal bleeding) N95.0 Active confirm ed 38319432 ALLERGIES No Known Allergies ENCOUNTERS from 1955 to 2020-07-08 Encounter Location Date Provider Diagnosis [address] [place] [address] Jul, Mar ia Sujatha Left- sided cerebrovascular accident (CVA) I63.9 ; Cigarette nicotine dependence without complication F17.210 ; Vitamin D deficiency E55.9 ; Morbid obesity due to excess calories E66.01 ; Acquired hypothyroidism E03.9 and Hypertension, unspecified type I10 IMMUNIZATIONS Vaccine Route Administration Date Status Pneumococcal Adult 0.5mL (Pneumovax 23) IM Intramuscular Mar 14, 2017 Administered Influenza (6mo & up) Fluzone IM Intramuscular Mar 14, 2017 Ad ministered SOCIAL HISTORY Tobacco Use: Social History Observation Description Date Details (start date - stop date) Former Smoker Sex Assigned At : Social History Observation Description Sex Assigned At Unknown Education: Question Answer Notes Level of Education: Finished High School Audit Question Answer Notes Total Score: 0 Interpretation: Alcohol Education Language: Question Answer Notes Languages spoken: Welsh Hoahaoism: Question Answer Notes Hoahaoism 13 [employer] Sexual Hx: Question Answer Notes Had sex in the last 12 months (vaginal, oral, or anal)? No Drug and Alcohol Question Answer Notes Total Score: 0 Interpretation: No problems reported Alcohol Screening: Question Answer Notes Did you have a drink containing alcohol in the past year? No Points 0 Interpretation Negative BMI Care Goal Follow-Up Question Answer Notes Above Normal BMI Follow-Up Dietary management educatio n, guidance, and counseling Tobacco Use: Question Answer Notes Are you a: former smoker currently on nicotin e patch How long has it been since you last smoked? < 1 month REASON FOR REFERRAL No Information VITAL SIGNS Weight 191 lbs Jul, Height 5' in Jul, BMI 37.30 kg/m2 Jul, Heart Rate 92 /min Jul, Respiratory Rate 18 /min Jul, Temperature 98.1 degrees Fahrenheit Jul, Oximetry 90 Jul, Blood pressure systolic 178 mm Hg Jul, Blood pressure diastolic 60 mm Hg Jul, MEDICATIONS Medication SIG (Take, Route, Frequency, Duration) Notes Start Da te End Date Status Clopidogrel Bisulfate 75 MG 1 tablet Orally Once a day for 30 day(s) Active Multi For Her - as directed Orally N ot-Taking Nicotine 7 MG/24HR 1 patch to skin Transdermal Once a day for 30 day( s) Active Norethindrone Acetate 5 MG 1 tablet Orally Once a day for 30 day(s) Active Drisdol 85135 UNIT 1 capsule Orally weekly for 30 day(s) 1 7 Mar, 2017 Not-Taking Synthroid 50 MCG 1 tablet on an empty stomach in the morning Orally Once a day for 30 day(s) Mar, Active Atorvastatin Calcium 80 MG 1 tablet Orally Once a day for 30 day(s) Active Aspirin 81 MG 1 tablet Orally Once a day for 30 day(s) Active Zyrtec Allergy 10 MG 1 tablet Orally Once a day for 30 day(s) Jul, Active PROCEDURES No Information RESULTS No Results REASON FOR VISIT [phone] -[facility] MEDICAL (GENERAL) HISTORY Type Description Date Medical History morbid obesity Medical History layla dep Medical History Vit D def Medical History hypothyroidism Medical History 03/18 EKG NSR, anteroseptal old infarct Medical History medical noncompliance Medical History HTN Medical History 06/29/20 - L ant frontal CVA with R sided weakness & facial droop (resolved) Surgical History Vericose veins stripping 1999 Surgical History Tubal ligation Hospitalization History Childbirth Hospitalization History L frontal ant, CVA 06/2020 Goals Section No Information Health Concerns No Information MEDICAL EQUIPMENT No Information MENTAL STATUS No Information FUNCTIONAL STATUS No Information ASSESSMENTS Encounter Date Diagnosis Assessment Notes Treatment Notes Treatm ent Clinical Notes Jul, Left-sided cerebrovascular accident (CVA) (ICD-1 0 - I63.9) Cont with ASA, Plavix, Statin, she is seeing [facility], has upcoming appt. Jul, Cigarette nicotine dependenc e without complication (ICD-10 - F17.210) Pt counselled heavily on the importance of tobacco abstinence and the dangers not quiting may pose. Discussed various options for cessation with patient. She is doing well with patches, cont for at least 2 months, call with [employer]. Jul, Vitamin D deficiency (ICD-10 - E55.9) Jul, Morbid obesity due to excess calories (ICD-10 - E66.01) Pt was counselled on the importance of diet and exercise in maintaining a healthy weight and that patients weight currently poses a health risk. Pt verbalizes understanding Jul, Acquired hypothyroidism (ICD-10 - E03.9) She has restarted her synthroid, will recheck TSH in 6 w Jul, Hypertension, unspecified type (ICD-10 - I10) Pressures elevated, will monitor, she will monitor pressures at home and bring in to her recehck in 2 w. PLAN OF TREATMENT Medication Medication Name Sig Start Date Stop Date Zyrtec Allergy 10 MG 1 tablet Orally Once a day for 30 day(s) Jul, Treatment Notes Assessment Notes Clinical Notes Left-sided cerebrovascular accident (CVA) Cont with A, Plavix, Statin, she is seeing [facility], has upcoming appt. Cigarette nicotine dependence without complication Pt counselled heavily on the importance of tobacco abstinence and the dangers not quiting may pose. Discussed various options for cessation with patient. She is doing well with patches, cont for at least 2 months, call with [employer]. Morbid obesity due to excess calories Pt was counselle d on the importance of diet and exercise in maintaining a healthy weight and that patients weight currently poses a health risk. Pt verbalizes understanding Acquired hypothyroidism She has restarted her synthr oid, will recheck TSH in 6 w Hypertension, unspecified type Pressures elevated, yves l monitor, she will monitor pressures at home and bring in to her recehck in 2 w. Future Test Test Name Order Date FREE T4 [id number] TSH [id number] Next Appt Details 10-14 days Reason: Provider Name:Tootie Solares, 2020-07-14 03:30:00 PM, [id number], [place], [address], Insurance Providers Payer Name Payer Address Payer Phone Insured Name Patient Relati onship to Insured Coverage Start Date Coverage End Date BCBS [employer] DEWE[employer] PPO [phone] [facility] [facility] [place] [id number] [address]
[2020-07-12 20:00] VITALS: BP 155/100
[2020-07-12] MEDS: ATORVASTATIN 20 MG TAB PO SCH (20:51)
[2020-07-12] MEDS: SENNA 8.6 MG TAB (SENOKOT) PO SCH (20:51)
[2020-07-12] MEDS: DOCUSATE SODIUM 100MG CAPSULE PO SCH (20:51)
[2020-07-13] MEDS: LEVOTHYROXINE 62.5MCG PER 1/2 TAB (0.0625MG) PO SCH (05:32)
[2020-07-13 06:00] VITALS: BP 150/70
[2020-07-13 07:13] LABS: BASO # 0.1 10^3/uL (0.0-0.2); BASO % 0.8 % (0.0-1.0); EOS # 0.3 10^3/uL (0.0-0.5); EOS % 2.9 % (0.0-3.0); HEMATOCRIT 37.8 % (36.0-47.0); HEMOGLOBIN 11.8 g/dl (12.0-15.5); LYMPH # 1.4 10^3/uL (1.5-5.0); LYMPH % 15.7 % (24.0-44.0); MEAN CORPUSCULAR HEMOGLOBIN 30.6 pg (27.0-33.0); MEAN CORPUSCULAR HGB CONC 31.2 g/dl (32.0-36.5); MEAN CORPUSCULAR VOLUME 98.2 fl (80.0-96.0); MONO # 0.6 10^3/uL (0.0-0.8); MONO % 6.7 % (0.0-5.0); NEUTROPHILS # 6.3 10^3/uL (1.5-8.5); NEUTROPHILS % 73.3 % (36.0-66.0); PLATELET COUNT, AUTOMATED 352 10^3/uL (150-450); RED BLOOD COUNT 3.85 10^6/uL (4.00-5.40); WHITE BLOOD COUNT 8.6 10^3/uL (4.0-10.0)
[2020-07-13 07:43] LABS: ALBUMIN 2.8 GM/DL (3.2-5.2); ALT/SGPT 132 U/L (12-78); BILIRUBIN,TOTAL 0.4 MG/DL (0.2-1.0); BLOOD UREA NITROGEN 10 MG/DL (7-18); CALCIUM LEVEL 8.5 MG/DL (8.8-10.2); CARBON DIOXIDE LEVEL 28 MEQ/L (21-32); CHLORIDE LEVEL 104 MEQ/L (98-107); CREATININE FOR GFR 0.76 MG/DL (0.55-1.30); GLOMERULAR FILTRATION RATE > 60.0 (>45); GLUCOSE, FASTING 89 MG/DL (70-100); POTASSIUM SERUM 3.8 MEQ/L (3.5-5.1); SODIUM LEVEL 141 MEQ/L (136-145)
[2020-07-13] MEDS: LEVALBUTEROL HFA 45MCG/ACT 15 GM INHALER INH SCH ×4 (07:54→19:59)
[2020-07-13] MEDS: DOCUSATE SODIUM 100MG CAPSULE PO SCH ×2 (08:59→20:02)
[2020-07-13] MEDS: CLOPIDOGREL 75 MG TAB PO SCH (08:59)
[2020-07-13] MEDS: ENOXAPARIN 40MG/0.4ML SYRINGE (J1650 PER 10MG) SC SCH (08:59)
[2020-07-13] MEDS: PANTOPRAZOLE 40MG TAB (PROTONIX) PO SCH (09:00)
[2020-07-13] MEDS: ASPIRIN 81 MG ENTERIC TAB PO SCH (09:00)
[2020-07-13] MEDS: NICOTINE 7 MG/24 HR TRANSDERMAL TD SCH (09:00)
[2020-07-13] MEDS: REMEDY PHYTOPLEX Z-GUARD PASTE 113GM TUBE (FROM STOREROOM PRODUCT) TOP SCH ×3 (09:02→20:03)
--- NOTE | 2020-07-13 09:19 | HPEPDOC ---
[employer] Note DATE OF ADMISSION: 07-21-20 DATE OF SERVICE: 07-13-20 TIME OF ADMISSION: Please refer to physician's admission order. SOURCE OF ADMISSION INFORMATION: [facility] record and patient CHIEF COMPLAINT: stroke HISTORY OF PRESENT ILLNESS: 64F pmh HTN, HLD, Hypothyroidism, diastolic CHF recent left anterofrontal CVA reporting no residual deficits and treated at [facility] where she was placed on AsA and Plavix complicated by vaginal bleeding for which she underwent a uterine biopsy at [facility] 06-22 and later presented to [facility] ED on 07-08-20 complaining of new onset numbness in all 4 extremities and noted to have right sided paresis. MRI showed, 4 mm acute/early subacute ischemic infarct at the left internal capsule posterior limb. And CTA head and neck was negative for significant stenosis. She was diagnosed with a new CVA with concern for cryptogenic stroke with recomm endations to have loop recorder placed as outpatient. She had dyspnea which improved with oxygen and had dysphagia, found to have new mobility and ADL impairments and deemed medically appropriate for discharge to ARU. REVIEW OF SYSTEMS: The following is a completed review of systems and has been reviewed. Review of systems otherwise unremarkable. PAIN: Patient self reports no pain EYES: No recent decreased vision bilat EARS, NOSE, & THROAT: +dysphagia. CARDIOVASCULAR: Denies chest pain or palpitations PULMONARY:[Denies shortness of breath, +cough GASTROINTESTINAL: Denies constipation/diarrhea GENITOURINARY: denies dysuria MUSCULOSKELETAL: right sided weakness NEUROLOGICAL:right sdied paresis and dysphagia HEMATOLOGICAL:denies easy bruising SKIN: no rash PSYCHIATRIC: Unremarkable All other review of systems found to be negative. PAST MEDICAL HISTORY: as per HPI PAST SURGICAL HISTORY: Varicose bein stripping, tubal ligation, hysteroscopy with uterin amss biopsy / 1 at [facility] ALLERGIES: Please see below. MEDICATIONS: Please see below. FAMILY HISTORY: DM and CVA, Cardiac SOCIAL HISTORY: +smoker, no etoh/illicit drugs DIET: level 2 PHYSICAL EXAMINATION: VITAL SIGNS: Please see below. GENERAL: Pleasant and cooperative. No acute distress. +right facial droop, tongue deviation toward the right HEENT: PERRL. Extraocular movements intact. Clear conjunctiva CARDIOVASCULAR: Regular rate and rhythm. No murmurs, rubs, or gallops LUNGS: decreased breath sounds throughout No wheezes. No rhonchi ABDOMEN: Soft, nontender, nondistended. Positive bowel sounds. Normal active bow el sounds NEUROLOGICAL: Alert and oriented times three. Cranial nerves II through XII grossly intact. Sensation grossly intact +clonus RLE EXTREMITIES: 5\5 strength left upper extremities. 2/5 RUE 3+/5\5 strength right lower extremity. 5/5 strength in left lower extremity. LABORATORY DATA: Please see below. IMAGING:Imaging documentation personally reviewed by record FUNCTIONAL STATUS: Premorbid: Independent with all activities of daily life as well as mobility On Admission: Contact guard-Min assist for bed mobility, functional transfers, ambulation, dressing, toileting GOALS: Mod-I ambulation household distances, dressing, toileting, bathing ASSESSMENT:64-year-old F with past medical history of HTN and stroke in 2020 who presents status post new stroke PLAN: 1. 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 Neuro- recent left sujatha-frontal infarct June 2020 with new left internal capsule infarct, c/u ASa and Plavix, statin for secondary stroke prevention- -loop recorder to be placed as outpatient, f/u neuro as outpatient -antiphospholipid/vasculitis w/u still pending 3. cardiac- c/u lisinopril for HTN, medicine consulted to assist in overall management 4. Resp- COPD, c/u 02 and breathing treatments 5. GI ppx- protonix 6. DT ppx- lovenox 7. endo- hypothyroidism, c/u synthroid 8. Pain- tylenol prn 9. Dispo tbd POST ADMISSION PHYSICIAN EVALUATION: Medical and functional status: Description of medical status, medical assessment: As above. Rehabilitation diagnosis and current and prior cold morbid medical conditions as above. Risk of complications and plans to mitigate them as above. Description of functional status current status is as above. Prior status as above. Status compared to preadmission: There are no clinically significant differences between the patient's current status and the information described on the preadmission screening document. Treatment plan anticipated: Treatment plan is as described above. Required disciplines including physical therapy, occupational therapy, others as noted above. Intensity of services: 3 hours a day, 6 days a week. Special considerations: There are no specific special or safety considerations that would likely preclude immediate implementation of an intensive rehabilitation program or subsequently influence the plan of care. ATTESTATION: Considering all the information above, it is my best judgment that this patient requires intensive rehabilitation therapy as described above and an inpatient hospital environment due to the complexity of nursing, medical, and rehabilitation needs required by the patient. Furthermore, this patient can reasonably be expected to participate in an benefit from an inpatient rehabilitation stay with an interdisciplinary team approach to the delivery of rehabilitation care under the direction and supervision of rehabilitation physician. PROGNOSIS: good ESTIMATED LENGTH OF STAY:14-18 days. PROJECTED DISCHARGE DESTINATION: Home with family support and any durable medical equipment required to increase functional safety and mobility. TIME SPENT COUNSELING AND COORDINATING INITIAL CARE: Greater than 70 minutes. Vital Signs Vital Sign - Last 24 Hours 07/12/20 07/12/20 07/13/20 07/13/20 16:10 20:00 06:00 09:02 Temp 98.7 98.5 99.5 Pulse 86 80 75 Resp 18 18 18 B/P (MAP) 152/80 (104) 155/100 (118) 150/70 (96) 152/70 Pulse Ox 92 95 92 O2 Delivery Room Air Room Air Room Air Laboratory Data CBC/BMP Laboratory Tests 07/13/20 06:49 Labs 24H Laboratory Tests 2 07/13/20 06:49: Immature Granulocyte % (Auto) 0.6, Neutrophils (%) (Auto) 73.3H, Lymphocytes (%) (Auto) 15.7L, Monocytes (%) (Auto) 6.7H, Eosinophils (%) (Auto) 2.9, Basophils (%) (Auto) 0.8, Neutrophils # (Auto) 6.3, Lymphocytes # (Auto) 1.4L, Monocytes # (Auto) 0.6, Eosinophils # (Auto) 0.3, Basophils # (Auto) 0.1, Nucleated Red Blood Cells % (auto) 0.0, Anion Gap 9, Glomerular Filtration Rate > 60.0, Calcium Level 8.5L, Total Bilirubin 0.4, Aspartate Amino Transf (AST/SGOT) 123H, Alanine Aminotransferase (ALT/SGPT) 132H, Alkaline Phosphatase 86, Total Protein 7.0, Albumin 2.8L, Albumin/Globulin Ratio 0.7L Home Medications Scheduled Aspirin (Aspirin) 81 Mg Tab.chew, 81 MG PO DAILY, (Reported) Atorvastatin Calcium (Lipitor) 80 Mg Tablet, 80 MG PO QHS, (Reported) Clopidogrel Bisulfate (Clopidogrel) 75 Mg Tablet, 75 MG PO DAILY, (Reported) Levothyroxine Sodium (Levothyroxine Sodium) 125 Mcg Tablet, 62.5 MCG PO DAILY@06 Lisinopril (Lisinopril) 5 Mg Tablet, 10 MG PO DAILY Nicotine (Nicotine Patch) 7 Mg Patch.td24, 1 PATCH TOP DAILY, (Reported) APPLY TO SHOULDER OR UPPER ARM Norethindrone Acetate (Norethindrone Acetate) 5 Mg Tablet, 5 MG PO TID, (Reported) Allergies Coded Allergies: No Known Drug Allergies (Verified Allergy, Unknown, 07/08/20) A-FIB/CHADSVASC A-FIB History Current/History of A-Fib/PAF?: No Current PO Anticoag Therapy: No KARLI DANIELS MD Jul 13, 2020 09:19
[2020-07-13 14:00] VITALS: BP 144/60
--- NOTE | 2020-07-13 16:59 | IPNPDOC ---
Text Note Date of Service The patient was seen on 07/13/20. NOTE Subjective: Patient is a 64-year-old female with a PMHx CVA (L sujatha-frontal CVA 06/2020), residual right-sided hemiplegia and facial droop (Treated at [facility]; Rx: ASA/Plavix), Uterine mass (06/2020) s/p Biopsy at [facility], Obestiy, Tobacco abuse, Hypothyroidism, HTN, who presented to the emergency room with complaints of slurred speech and bilateral upper and lower extremity numbness on 07/08. Patient was admitted to [facility] on 07/08 and discharged on 07/12. , Hospital course patient had an MRI that had revealed a subacute ischemic infarct in the left internal capsular the posterior limb, she was new compared to prior imaging. She had completed a GOPAL which was unremarkable. Patient has been instructed to follow up with cardiology as an outpatient for implantable loop recorder as her was a concern for cryptogenic stroke. She has been continued on ASA and Plavix. Patient was discharged to acute rehabilitation unit on 07/12. Hospitalist service was consulted in the acute rehabilitation unit for medical comanagement. Patient was seen and examined at the bedside. Currently patient denies any chest pain, short of breath, palpitations, nausea, vomiting, abdominal pain or diarrhea. Patient reports that she has been working with physical therapy. Objective: Vitals (See below) General: Lying in bed, appears comfortable, AAOx3 HEENT: NC, AT CVS: RRR, +S1S2 Lungs: Fair air entry b/l, -w/r/r Abdomen: Soft, ND, NT Extremities: - Edema, - Calf tenderness Neuro: 2/5 on R U/LE; 5/5 at L U/LE, R facial droop noted Assessment and plan: s/p Acute / Subacute CVA - Residual right-sided hemiparesis and facial droop - This morning patient did not appear to have any slurred speech - Majority of hypercoagulability workup has been negative; has not been completed at this time - Neurology was consulted inpatient; recommended continuing ASA and Plavix - Patient is to pursue cardiology as an outpatient for implantable loop recorder - c/w ASA / Plavix / Atorvastatin - c/w PT and OT as per ARU HTN - BP remains well controlled - c/w Lisinopril Vaginal Bleed - likely 2/2 Uterine Mass - There's been no evidence of bleeding noted - Hemodynamically stable - Hemoglobin remained stable - Has had biopsy and hysteroscopy completed at [facility] - Will have outpatient follow-up with INSET CUTTER/pelvic a provider for results of pathology/biopsy Nicotine dependence - Imaging with evidence of COPD like changes - c/w Nicotine patch - c/w inhaled therapy as ordered DLP - c/w Atorvastatin Obesity - BMI of 33.3 - Complicating medical care Hypothyroidism - c/w Levothyroxine Varicose Veins - s/p stripping GERD - c/w Protonix DVT prophylaxis - c/w Lovenox Disposition: - c/w PT and OT as per ARU VSZachary, I+O VSZachary I+O Laboratory Tests 07/13/20 06:49 Vital Signs Date Time Temp Pulse Resp B/P (MAP) Pulse Ox O2 Delivery O2 Flow Rate FiO2 07/13/20 14:00 98.6 89 144/60 (88) 94 Room Air 07/13/20 06:00 75 I&O- Last 24 Hours up to 6 AM 07/13/20 06:00 Intake Total 320 ml Balance 320 ml MITRA SANTIAGO MD Jul 13, 2020 16:59
[2020-07-13 20:00] VITALS: BP 143/66
[2020-07-13] MEDS: SENNA 8.6 MG TAB (SENOKOT) PO SCH (20:03)
[2020-07-13] MEDS: ATORVASTATIN 20 MG TAB PO SCH (20:11)
[2020-07-13] MEDS: ACETAMINOPHEN TAB 650MG DOSE (2X325MG) PO PRN (20:11)
[2020-07-14] MEDS: LEVOTHYROXINE 62.5MCG PER 1/2 TAB (0.0625MG) PO SCH (05:55)
[2020-07-14 06:00] VITALS: BP 150/66
[2020-07-14 06:39] LABS: BASO # 0.1 10^3/uL (0.0-0.2); EOS # 0.3 10^3/uL (0.0-0.5); EOS % 3.9 % (0.0-3.0); HEMATOCRIT 35.3 % (36.0-47.0); HEMOGLOBIN 11.1 g/dl (12.0-15.5); LYMPH # 1.6 10^3/uL (1.5-5.0); LYMPH % 19.8 % (24.0-44.0); MEAN CORPUSCULAR HEMOGLOBIN 30.7 pg (27.0-33.0); MEAN CORPUSCULAR HGB CONC 31.4 g/dl (32.0-36.5); MEAN CORPUSCULAR VOLUME 97.8 fl (80.0-96.0); MONO # 0.6 10^3/uL (0.0-0.8); NEUTROPHILS # 5.4 10^3/uL (1.5-8.5); NEUTROPHILS % 67.8 % (36.0-66.0); PLATELET COUNT, AUTOMATED 313 10^3/uL (150-450); RED BLOOD COUNT 3.61 10^6/uL (4.00-5.40)
[2020-07-14 07:08] LABS: BLOOD UREA NITROGEN 11 MG/DL (7-18); CALCIUM LEVEL 8.3 MG/DL (8.8-10.2); CARBON DIOXIDE LEVEL 30 MEQ/L (21-32); CHLORIDE LEVEL 106 MEQ/L (98-107); CREATININE FOR GFR 0.77 MG/DL (0.55-1.30); GLOMERULAR FILTRATION RATE > 60.0 (>45); GLUCOSE, FASTING 99 MG/DL (70-100); POTASSIUM SERUM 3.8 MEQ/L (3.5-5.1); SODIUM LEVEL 141 MEQ/L (136-145)
[2020-07-14] MEDS: LEVALBUTEROL HFA 45MCG/ACT 15 GM INHALER INH SCH ×3 (07:14→20:12)
[2020-07-14] MEDS: REMEDY PHYTOPLEX Z-GUARD PASTE 113GM TUBE (FROM STOREROOM PRODUCT) TOP SCH ×3 (09:00→20:13)
[2020-07-14] MEDS: DOCUSATE SODIUM 100MG CAPSULE PO SCH ×2 (09:33→20:12)
[2020-07-14] MEDS: ASPIRIN 81 MG ENTERIC TAB PO SCH (09:33)
[2020-07-14] MEDS: ENOXAPARIN 40MG/0.4ML SYRINGE (J1650 PER 10MG) SC SCH (09:34)
[2020-07-14] MEDS: CLOPIDOGREL 75 MG TAB PO SCH (09:34)
[2020-07-14] MEDS: PANTOPRAZOLE 40MG TAB (PROTONIX) PO SCH (09:34)
[2020-07-14] MEDS: NICOTINE 7 MG/24 HR TRANSDERMAL TD SCH (09:35)
[2020-07-14 14:00] VITALS: BP 126/61
[2020-07-14] MEDS: FLUoxetine 20 MG CAP PO SCH (16:02)
[2020-07-14 20:00] VITALS: BP 146/72
[2020-07-14] MEDS: ACETAMINOPHEN TAB 650MG DOSE (2X325MG) PO PRN (20:07)
[2020-07-14] MEDS: ATORVASTATIN 20 MG TAB PO SCH (20:08)
[2020-07-14] MEDS: SENNA 8.6 MG TAB (SENOKOT) PO SCH (20:12)
[2020-07-15 05:06] VITALS: BP 150/66
[2020-07-15] MEDS: LEVOTHYROXINE 62.5MCG PER 1/2 TAB (0.0625MG) PO SCH (06:05)
[2020-07-15] MEDS: LEVALBUTEROL HFA 45MCG/ACT 15 GM INHALER INH SCH ×4 (07:17→19:48)
[2020-07-15] MEDS: ASPIRIN 81 MG ENTERIC TAB PO SCH (08:57)
[2020-07-15] MEDS: ENOXAPARIN 40MG/0.4ML SYRINGE (J1650 PER 10MG) SC SCH (08:57)
[2020-07-15] MEDS: PANTOPRAZOLE 40MG TAB (PROTONIX) PO SCH (08:57)
[2020-07-15] MEDS: FLUoxetine 20 MG CAP PO SCH (08:57)
[2020-07-15] MEDS: NICOTINE 7 MG/24 HR TRANSDERMAL TD SCH (08:57)
[2020-07-15] MEDS: CLOPIDOGREL 75 MG TAB PO SCH (08:57)
[2020-07-15] MEDS: DOCUSATE SODIUM 100MG CAPSULE PO SCH ×2 (08:57→20:36)
[2020-07-15] MEDS: REMEDY PHYTOPLEX Z-GUARD PASTE 113GM TUBE (FROM STOREROOM PRODUCT) TOP SCH ×3 (09:01→20:35)
[2020-07-15 14:00] VITALS: BP 130/58
[2020-07-15 20:00] VITALS: BP 136/63
[2020-07-15] MEDS: ATORVASTATIN 20 MG TAB PO SCH (20:35)
[2020-07-15] MEDS: ACETAMINOPHEN TAB 650MG DOSE (2X325MG) PO PRN (20:35)
[2020-07-15] MEDS: SENNA 8.6 MG TAB (SENOKOT) PO SCH (20:36)
[2020-07-16 05:12] VITALS: BP 148/67
[2020-07-16] MEDS: LEVOTHYROXINE 62.5MCG PER 1/2 TAB (0.0625MG) PO SCH (06:32)
[2020-07-16] MEDS: LEVALBUTEROL HFA 45MCG/ACT 15 GM INHALER INH SCH ×4 (07:27→20:17)
[2020-07-16] MEDS: PANTOPRAZOLE 40MG TAB (PROTONIX) PO SCH (08:09)
[2020-07-16] MEDS: ASPIRIN 81 MG ENTERIC TAB PO SCH (08:09)
[2020-07-16] MEDS: FLUoxetine 20 MG CAP PO SCH (08:09)
[2020-07-16] MEDS: NICOTINE 7 MG/24 HR TRANSDERMAL TD SCH (08:09)
[2020-07-16] MEDS: CLOPIDOGREL 75 MG TAB PO SCH (08:09)
[2020-07-16] MEDS: ENOXAPARIN 40MG/0.4ML SYRINGE (J1650 PER 10MG) SC SCH (08:10)
[2020-07-16] MEDS: REMEDY PHYTOPLEX Z-GUARD PASTE 113GM TUBE (FROM STOREROOM PRODUCT) TOP SCH ×3 (08:10→20:46)
[2020-07-16] MEDS: DOCUSATE SODIUM 100MG CAPSULE PO SCH ×2 (08:10→20:34)
[2020-07-16 14:00] VITALS: BP 132/60
[2020-07-16 20:00] VITALS: BP 142/67
[2020-07-16] MEDS: SENNA 8.6 MG TAB (SENOKOT) PO SCH (20:36)
[2020-07-16] MEDS: ATORVASTATIN 20 MG TAB PO SCH (20:46)
[2020-07-16] MEDS: ACETAMINOPHEN TAB 650MG DOSE (2X325MG) PO PRN (20:52)
[2020-07-17] MEDS: LEVOTHYROXINE 62.5MCG PER 1/2 TAB (0.0625MG) PO SCH (05:49)
[2020-07-17 05:59] VITALS: BP 145/78
[2020-07-17 06:43] LABS: BASO # 0.1 10^3/uL (0.0-0.2); BASO % 0.9 % (0.0-1.0); EOS # 0.2 10^3/uL (0.0-0.5); EOS % 2.9 % (0.0-3.0); HEMATOCRIT 30.4 % (36.0-47.0); HEMOGLOBIN 9.5 g/dl (12.0-15.5); LYMPH # 1.8 10^3/uL (1.5-5.0); LYMPH % 23.4 % (24.0-44.0); MEAN CORPUSCULAR HEMOGLOBIN 30.4 pg (27.0-33.0); MEAN CORPUSCULAR HGB CONC 31.3 g/dl (32.0-36.5); MEAN CORPUSCULAR VOLUME 97.4 fl (80.0-96.0); MONO # 0.4 10^3/uL (0.0-0.8); MONO % 5.5 % (2.0-8.0); NEUTROPHILS # 5.2 10^3/uL (1.5-8.5); NEUTROPHILS % 66.5 % (36.0-66.0); PLATELET COUNT, AUTOMATED 329 10^3/uL (150-450); RED BLOOD COUNT 3.12 10^6/uL (4.00-5.40); WHITE BLOOD COUNT 7.9 10^3/uL (4.0-10.0)
[2020-07-17 07:01] LABS: BLOOD UREA NITROGEN 7 MG/DL (7-18); CALCIUM LEVEL 8.5 MG/DL (8.8-10.2); CARBON DIOXIDE LEVEL 28 MEQ/L (21-32); CHLORIDE LEVEL 105 MEQ/L (98-107); CREATININE FOR GFR 0.71 MG/DL (0.55-1.30); GLOMERULAR FILTRATION RATE > 60.0 (>45); GLUCOSE, FASTING 91 MG/DL (70-100); POTASSIUM SERUM 3.5 MEQ/L (3.5-5.1); SODIUM LEVEL 140 MEQ/L (136-145)
[2020-07-17] MEDS: LEVALBUTEROL HFA 45MCG/ACT 15 GM INHALER INH SCH (07:29)
[2020-07-17] MEDS: ASPIRIN 81 MG ENTERIC TAB PO SCH (08:21)
[2020-07-17] MEDS: CLOPIDOGREL 75 MG TAB PO SCH (08:21)
[2020-07-17] MEDS: FLUoxetine 20 MG CAP PO SCH (08:21)
[2020-07-17] MEDS: PANTOPRAZOLE 40MG TAB (PROTONIX) PO SCH (08:21)
[2020-07-17 08:22] VITALS: BP 127/58
[2020-07-17] MEDS: ENOXAPARIN 40MG/0.4ML SYRINGE (J1650 PER 10MG) SC SCH (08:22)
[2020-07-17] MEDS: NICOTINE 7 MG/24 HR TRANSDERMAL TD SCH (08:22)
[2020-07-17] MEDS: DOCUSATE SODIUM 100MG CAPSULE PO SCH (08:23)
[2020-07-17] MEDS: REMEDY PHYTOPLEX Z-GUARD PASTE 113GM TUBE (FROM STOREROOM PRODUCT) TOP SCH (08:23)
[2020-07-17] MEDS ORDERED: LIPI80TA PO (09:47)
[2020-07-17] MEDS ORDERED: LISI10TA22 PO (09:47)
[2020-07-17] MEDS ORDERED: PANT40TA29 PO (09:47)
[2020-07-17] MEDS ORDERED: NICO7PA TOP (09:47)
[2020-07-17] MEDS ORDERED: FLUO20CA22 PO (09:47)
[2020-07-17] MEDS ORDERED: LEVO125T4 PO (09:47)
[2020-07-17] MEDS ORDERED: CLOP75TA2 PO (09:47)
[2020-07-17] MEDS ORDERED: ASPI81CH33 PO (09:47)
--- NOTE | 2020-07-18 10:17 | IPNPDOC ---
PM&R Progress Note DATE OF SERVICE: Jul 14, 2020 Traffic Agent Progress Note Subjective: Patient seen in her room upset about her weakness and doesn't believe she will get better. She was encouraged to work on right arm exercises to take advantage of her preserved strength. REVIEW OF SYSTEMS: The following is a completed review of systems and has been reviewed. Review of systems otherwise unremarkable. PAIN: Patient self reports no pain EYES: No recent vision changes EARS, NOSE, & THROAT: +dysphagia. CARDIOVASCULAR: Denies chest pain or palpitations PULMONARY:[Denies shortness of breath, +cough GASTROINTESTINAL: Denies constipation/diarrhea GENITOURINARY: denies dysuria MUSCULOSKELETAL: right sided weakness NEUROLOGICAL:right sided paresis and dysphagia HEMATOLOGICAL:denies easy bruising SKIN: no rash PSYCHIATRIC: Unremarkable All other review of systems found to be negative. PHYSICAL EXAMINATION: VITAL SIGNS: Please see below. GENERAL: Pleasant and cooperative. No acute distress. +right facial droop, tongue deviation toward the right HEENT: PERRL. Extraocular movements intact. Clear conjunctiva CARDIOVASCULAR: Regular rate and rhythm. No murmurs, rubs, or gallops LUNGS: decreased breath sounds throughout No wheezes. No rhonchi ABDOMEN: Soft, nontender, nondistended. Positive bowel sounds. Normal active bowel sounds NEUROLOGICAL: Alert and oriented times three. Cranial nerves II through XII grossly intact. Sensation grossly intact +clonus RLE EXTREMITIES: 5\5 strength left upper extremities. 2/5 RUE 3+\5 strength right lower extremity. 5/5 strength in left lower extremity. ASSESSMENT:64-year-old F with past medical history of HTN and stroke in 2020 who presents status post new stroke PLAN: 1. 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 Neuro- recent left sujatha-frontal infarct June 2020 with new left internal capsule infarct, c/u ASa and Plavix, statin for secondary stroke prevention- -loop recorder to be placed as outpatient, f/u neuro as outpatient -antiphospholipid/vasculitis w/u still pending -will start prozac for motor recovery and mood as patient distraught over her weakness and wants to go home 3. cardiac- c/u lisinopril for HTN, medicine consulted to assist in overall management 4. Resp- COPD, c/u 02 and breathing treatments 5. GI ppx- protonix 6. DT ppx- lovenox 7. endo- hypothyroidism, c/u synthroid 8. Pain- tylenol prn 9. Dispo tbd Allergies Coded Allergies: No Known Drug Allergies (Verified Allergy, Unknown, 07/08/20) Vital Signs Vital Signs Date Time Temp Pulse Resp B/P (MAP) Pulse Ox O2 Delivery O2 Flow Rate FiO2 07/17/20 08:22 127/58 07/17/20 05:59 98.6 93 18 91 Room Air Current Medications Current Medications Current Medications Medications (Trade) Dose Ordered Sig/Marilyn Route PRN Reason Start Time Stop Time Status Last Admin Dose Admin Acetaminophen (Tylenol Tab) 650 mg Q4HP PRN PO fever/MILD PAIN (PS 1-4) 07/12/20 14:45 07/17/20 12:24 DC 07/16/20 20:52 Aspirin (Ecotrin) 81 mg DAILY PO 07/13/20 09:00 07/17/20 12:24 DC 07/17/20 08:21 Atorvastatin Calcium (Lipitor) 80 mg QHS PO 07/12/20 21:00 07/17/20 12:24 DC 07/16/20 20:46 Clopidogrel Bisulfate (PLAVix) 75 mg DAILY PO 07/13/20 09:00 07/17/20 12:24 DC 07/17/20 08:21 Docusate Sodium (Colace) 100 mg BID PO 07/12/20 21:00 07/17/20 12:24 DC 07/15/20 08:57 Enoxaparin Sodium (Lovenox) 40 mg DAILY SC 07/13/20 09:00 07/17/20 12:24 DC 07/17/20 08:22 Fluoxetine HCl (PROzac) 20 mg DAILY PO 07/14/20 14:30 07/17/20 12:24 DC 07/17/20 08:21 Home Med (Med Rec Complete!) ASDIRECTED XX 07/12/20 16:45 07/12/20 16:44 DC Levalbuterol HCl (Xopenex Hfa) 2 puff RQID INH 07/12/20 16:00 07/17/20 12:24 DC 07/17/20 07:29 Levothyroxine Sodium (Synthroid) 62.5 mcg DAILY@06 PO 07/13/20 06:00 07/17/20 12:24 DC 07/17/20 05:49 Lisinopril (Prinivil) 10 mg DAILY PO 07/13/20 09:00 07/14/20 10:19 DC 07/14/20 09:34 Lisinopril (Prinivil) 20 mg DAILY PO 07/15/20 09:00 07/17/20 12:24 DC 07/17/20 08:22 Miscellaneous (Unresolved Patient Own Med Order) SEE LABEL COMMENTS DAILY XX 07/14/20 09:00 07/17/20 12:24 DC Nicotine (Nicoderm Cq 7 Mg) 1 patch DAILY TD 07/13/20 09:00 07/17/20 12:24 DC 07/17/20 08:22 Pantoprazole Sodium (Protonix) 40 mg DAILY PO 07/13/20 09:00 07/17/20 12:24 DC 07/17/20 08:21 Patient Own Medication (Patient'S Own Med) norethindrone 5mg = 1 tablet ... TID PO 07/14/20 11:00 07/17/20 12:24 DC 07/17/20 08:23 Senna (Senokot) 1 tab QHS PO 07/12/20 21:00 07/17/20 12:24 KARLI FITCH MD Jul 18, 2020 10:17
--- NOTE | 2020-07-18 10:44 | PMRDS ---
NAME: LEONID SALEH [facility] WT ID#: [id number] : 1955 JOB: [id number] MICHAEL: 07/17/2020 ACCT: [id number] DOCTOR: KARLI DANIELS MD PMR DISCHARGE SUMMARY DATE OF ADMISSION: 07/12/2020 DATE OF DISCHARGE: 07/17/2020 CHIEF COMPLAINT/DISCHARGE DIAGNOSIS: Stroke. HISTORY OF PRESENT ILLNESS: This is a 64-year-old female with past medical history of hypertension, hyperlipidemia, hypothyroidism, diastolic CHF, recent left anterior frontal CVA reporting no residual deficits treated at [facility] where she was placed on aspirin and Plavix which was complicated by vaginal bleeding for which she underwent a uterine biopsy at [facility] in June and later presented to [facility] ED on 07/08/2020 complaining of new onset numbness in all four extremities and was noted to have right-sided paresis. MRI showed "4 mm acute/early subacute ischemic infarct in the left internal capsule posterior limb." CTA head and neck was negative for significant stenosis. She was diagnosed with a new CVA with concern for cryptogenic stroke with recommendations to have loop recorder placed as outpatient. She had dyspnea which improved with oxygen and had dysphagia, found to have new mobility and ADL impairments, and deemed medically appropriate for discharge to ARU. PAST MEDICAL HISTORY: As per HPI. HOSPITAL COURSE: The patient was admitted and enrolled in a comprehensive PT, OT, and speech-language pathology program. She received 24 hour nursing supervision. Patient was maintained on aspirin, Plavix, and statin for secondary stroke prevention. She was also started on Prozac to improve her motor recovery and her mood. Patient was medically stable during her hospital course and had an earlier than anticipated discharged planned for 07/17/2020. Patient had family training, and family felt comfortable assisting patient at her current level of function. 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 DISCHARGE MEDICATIONS: As per instructions. FUNCTIONAL HISTORY: On discharge, patient was contact guard for ambulation and standby assist to min assist for bed mobility and functional transfers. Thank you for this referral.
== END 2020-07-17 11:45 | disposition home health service (06) | DRG 58 ==
LOC: M PM&R 14:10
PROVIDERS: ADMIT Physical Medicine & Rehabilitation; ATTEND Physical Medicine & Rehabilitation
DX: I69.391 Dysphagia following cerebral infarction (principal); I11.0 Hypertensive heart disease with heart failure; I50.32 Chronic diastolic (congestive) heart failure; R13.10 Dysphagia, unspecified; E78.5 Hyperlipidemia, unspecified; E03.9 Hypothyroidism, unspecified; Z74.09 Other reduced mobility; Z74.1 Need for assistance with personal care; J44.9 Chronic obstructive pulmonary disease, unspecified; Z79.82 Long term (current) use of aspirin; Z79.899 Other long term (current) drug therapy; F17.200 Nicotine dependence, unspecified, uncomplicated; K21.9 Gastro-esophageal reflux disease without esophagitis

== ENCOUNTER 2020-08-11 18:53 | Inpatient (IN) | payer BC ==
[~2020-08-11] VITALS: Ht 152.4 cm; Wt 80.9 kg
[~2020-08-11 18:53] MED LIST changes: -ATOR80TA59 PO; -CETI10TA4 PO; -FLUO20CA20 PO; -NICO7DIS24 TOP; -PANT-23 PO
[2020-08-11 19:50] LABS: BASO # 0.1 10^3/uL (0.0-0.2); BASO % 0.6 % (0.0-1.0); EOS # 0.3 10^3/uL (0.0-0.5); EOS % 2.3 % (0.0-3.0); LYMPH # 1.9 10^3/uL (1.5-5.0); LYMPH % 16.7 % (24.0-44.0); MEAN CORPUSCULAR HEMOGLOBIN 27.2 pg (27.0-33.0); MEAN CORPUSCULAR HGB CONC 29.8 g/dl (32.0-36.5); MEAN CORPUSCULAR VOLUME 91.2 fl (80.0-96.0); MONO # 0.8 10^3/uL (0.0-0.8); MONO % 7.3 % (2.0-8.0); NEUTROPHILS # 8.1 10^3/uL (1.5-8.5); NEUTROPHILS % 72.5 % (36.0-66.0); PLATELET COUNT, AUTOMATED 424 10^3/uL (150-450); RED BLOOD COUNT 2.17 10^6/uL (4.00-5.40); WHITE BLOOD COUNT 11.2 10^3/uL (4.0-10.0)
[2020-08-11 19:55] LABS: HEMATOCRIT 19.8 % (36.0-47.0); HEMOGLOBIN 5.9 g/dl (12.0-15.5)
[2020-08-11 20:00] LABS: INR 1.1; PROTHROMBIN TIME 14.4 SECONDS (12.5-14.3)
[2020-08-11 20:05] LABS: PARTIAL THROMBOPLASTIN TIME 20.4 SECONDS (24.2-38.5)
[2020-08-11] MEDS ORDERED: CLOP75TA2 PO (20:11)
[2020-08-11] MEDS ORDERED: ASPI81CH33 PO (20:11)
[2020-08-11] MEDS ORDERED: ATOR80TA59 PO (20:11)
[2020-08-11] MEDS ORDERED: FLUO20CA20 PO (20:11)
[2020-08-11] MEDS ORDERED: LEVO125T4 PO (20:12)
[2020-08-11] MEDS ORDERED: CETI10TA4 PO (20:12)
[2020-08-11] MEDS ORDERED: PANT-23 PO (20:12)
[2020-08-11] MEDS ORDERED: NICO7DIS24 TOP (20:12)
[2020-08-11] MEDS ORDERED: LISI10TA22 PO (20:12)
[2020-08-11 20:18] LABS: ALBUMIN 2.4 GM/DL (3.2-5.2); ALT/SGPT 100 U/L (12-78); BILIRUBIN,DIRECT < 0.1 MG/DL (0.0-0.2); BILIRUBIN,TOTAL 0.3 MG/DL (0.2-1.0); BLOOD UREA NITROGEN 7 MG/DL (7-18); CARBON DIOXIDE LEVEL 27 MEQ/L (21-32); CHLORIDE LEVEL 105 MEQ/L (98-107); CK-MB VALUE MASS < 1.0 NG/ML (<3.6); CPK CREATINE PHOSPHOKINASE 107 U/L (26-192); CREATININE FOR GFR 0.79 MG/DL (0.55-1.30); GLOMERULAR FILTRATION RATE > 60.0 (>45); GLUCOSE, FASTING 99 MG/DL (70-100); MB/CK RELATIVE INDEX 0.93 (< OR =4); POTASSIUM SERUM 3.5 MEQ/L (3.5-5.1); SODIUM LEVEL 141 MEQ/L (136-145); TOTAL PROTEIN 6.5 GM/DL (6.4-8.2); TROPONIN I 0.02 NG/ML (< 0.10)
[2020-08-11 20:36] LABS: RSV AMPLIFICATION NEGATIVE (NEGATIVE)
[2020-08-11] MEDS ORDERED: ATORVASTATIN 20 MG TAB PO SCH (21:00)
[2020-08-11] MEDS: DOCUSATE SODIUM 100MG CAPSULE PO SCH (21:00)
[2020-08-11 21:46] VITALS: BP 161/70
[2020-08-11 22:01] VITALS: BP 160/72
[2020-08-11] MEDS ORDERED: MOM 30ML SUSPENSION UDC PO PRN (22:15)
[2020-08-11] MEDS ORDERED: ACETAMINOPHEN TAB 650MG DOSE (2X325MG) PO PRN (22:15)
[2020-08-11] MEDS ORDERED: MAALOX 30 ML SUSP *UDC PO PRN (22:15)
[2020-08-11] MEDS ORDERED: PILL CUTTER 1 EACH XX PRN (22:40)
[2020-08-11 22:46] VITALS: BP 174/73
[2020-08-11] MEDS ORDERED: FUROSEMIDE 40MG/4ML VIAL (J1940) IV ONE (23:35)
--- NOTE | 2020-08-11 23:40 | HPEPDOC ---
[facility] Medical History & Physical Date of Admission Aug 11, 2020 Date of Service: Aug 11, 2020 History and Physical CHIEF COMPLAINT: Shortness of breath HISTORY OF PRESENT ILLNESS: 64-year-old female history of CVA, dysfunction uterine bleeding, hypothyroidism, hypertension who presents with a history of progressive shortness of breath over the past 1 week associated with fatigue and weakness. Patient was found to have a hemoglobin of 5.9. Patient has a known history of blood loss through dysfunctional uterine bleeding and follows up with her computer engineering technician at [facility] who recently performed a biopsy of a uterine mass and she is scheduled to follow-up with him again at the end of the month. She denies active uterine bleeding at this time, says that the bleeding episodes come and go randomly and can be heavy at times. She denies chest pain, abdominal pain, dysuria, leg pain or swelling. She denies black stools, hemoptysis, red blood in stools. PAST MEDICAL/SURGICAL HISTORY: CVA Hypothyroidism Hypertension Dysfunctional uterine bleeding Tubal ligation Endometrial biopsy SOCIAL HISTORY: Denies alcohol use Denies tobacco use currently but has a [id number] history Denies illicit drug use FAMILY HISTORY: Reviewed and none contributory to this admission ALLERGIES: Please see below. REVIEW OF SYSTEMS: 10 point review of systems complete all negative otherwise stated in HPI HOME MEDICATIONS: Please see below. PHYSICAL EXAMINATION: Constitutional: Awake and alert, in no apparent distress ENT: Sclera are clear. Mucosa is pale Respiratory: Lungs CTA bilaterally. No respiratory distress. No use of ac cessory muscles. Cardiovascular: RRR S1 and S2 are normal, no murmur Gastrointestinal: Abdomen is soft, non distended, non tender, BS present. Musculoskeletal: Trace pedal edema Neurologic: No focal neurological deficit. Mental Status: A&O x3, normal affect Skin: Warm, dry LABORATORY DATA: See below. IMAGING: See chart MICROBIOLOGY: Please see below. ASSESSMENT/PLAN 64-year-old female history of CVA, dysfunction uterine bleeding, hypothyroidism, hypertension who presents with a history of progressive shortness of breath over the past 1 week associated with fatigue and weakness. Patient was found to have a hemoglobin of 5.9. To be secondary to dysfunctional uterine bleeding. Patient admitted for blood transfusion and medical management. # Symptomatically anemia secondary to dysfunctional uterine bleeding: Transfuse 2 units PRBC recheck hemoglobin. 1 dose IV lasix with transfusion. Check FOBT. Consider gynecology consultation if patient continues to bleed vs following up within the month with her computer engineering technician at [facility]. Shes on OCP TID to help with the bleeding which we dont carry and can be given own meds. # Hypertension: Continue home meds. Monitor and titrate # Hypothyroidism: resume Synthroid. # Depression: Continue Prozac # Smoker: Counseled to quit. # Hx of CVA: I will continue the aspirin but hold Plavix due to her bleeding. Continue atorvastatin. # DVT Prophylaxis: SCDs only. A Yousef Hospitalist Vital Signs Vital Signs Date Time Temp Pulse Resp B/P (MAP) Pulse Ox O2 Delivery O2 Flow Rate FiO2 08/11/20 23:16 98.4 84 18 144/70 (94) 96 Room Air Laboratory Data Labs 24H Laboratory Tests 2 08/11/20 19:22: Immature Granulocyte % (Auto) 0.6, Neutrophils (%) (Auto) 72.5H, Lymphocytes (%) (Auto) 16.7L, Monocytes (%) (Auto) 7.3, Eosinophils (%) (Auto) 2.3, Basophils (%) (Auto) 0.6, Neutrophils # (Auto) 8.1, Lymphocytes # (Auto) 1.9, Monocytes # (Auto) 0.8, Eosinophils # (Auto) 0.3, Basophils # (Auto) 0.1, Nucleated Red Blood Cells % (auto) 0.3H, Prothrombin Time 14.4H, Prothromb Time International Ratio 1.10, Activated Partial Thromboplast Time 20.4L, Anion Gap 9, Glomerular Filtration Rate > 60.0, Calcium Level 8.0L, Total Bilirubin 0.3, Direct Bilirubin < 0.1, Aspartate Amino Transf (AST/SGOT) 75H, Alanine Aminotransferase (ALT/SGPT) 100H, Alkaline Phosphatase 84, Total Creatine Kinase 107, Creatine Kinase MB < 1.0, Creatine Kinase MB Relative Index 0.93, Troponin I 0.02, Total Protein 6.5, Albumin 2.4L, Albumin/Globulin Ratio 0.6L 08/11/20 19:44: Coronavirus (COVID-19)(PCR) NEGATIVE, Influenza Type A (RT-PCR) NEGATIVE, Influenza Type B (RT-PCR) NEGATIVE, Respiratory Syncytial Virus (PCR) NEGATIVE CBC/BMP Laboratory Tests 08/11/20 19:22 Home Medications Scheduled Aspirin (Aspirin) 81 Mg Tab.chew, 81 MG PO DAILY Atorvastatin Calcium (Atorvastatin Calcium) 80 Mg Tablet, 80 MG PO QHS Cetirizine HCl (Cetirizine HCl) 10 Mg Tablet, 10 MG PO DAILY Clopidogrel Bisulfate (Clopidogrel) 75 Mg Tablet, 75 MG PO DAILY Fluoxetine Hcl (Fluoxetine HCl) 20 Mg Capsule, 20 MG PO DAILY Levothyroxine Sodium (Levothyroxine Sodium) 125 Mcg Tablet, 62.5 MCG PO QAM Lisinopril (Lisinopril) 10 Mg Tablet, 20 MG PO DAILY Nicotine (Nicotine Patch) 7 Mg Patch.td24, 1 PATCH TOP DAILY apply to shoulder or upper arm Norethindrone Acetate (Norethindrone Acetate) 5 Mg Tablet, 5 MG PO TID Pantoprazole Sodium (Pantoprazole Sodium) 40 Mg Tablet.dr, 40 MG PO DAILY Allergies Coded Allergies: No Known Drug Allergies (Verified Allergy, Unknown, 07/08/20) A-FIB/CHADSVASC A-FIB History Current/History of A-Fib/PAF?: No IMAN PIKE MD Aug 11, 2020 23:40
[2020-08-12] VITALS (14 sets, daily range): BP systolic 111–160; BP diastolic 49–82
--- NOTE | 2020-08-12 05:39 | ECGEPIP ---
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
[2020-08-12 05:49] LABS: HEMATOCRIT 26.4 % (36.0-47.0); MEAN CORPUSCULAR HEMOGLOBIN 27.6 pg (27.0-33.0); MEAN CORPUSCULAR HGB CONC 31.4 g/dl (32.0-36.5); MEAN CORPUSCULAR VOLUME 87.7 fl (80.0-96.0); PLATELET COUNT, AUTOMATED 379 10^3/uL (150-450); RED BLOOD COUNT 3.01 10^6/uL (4.00-5.40)
[2020-08-12 05:55] LABS: HEMOGLOBIN 8.3 g/dl (12.0-15.5)
[2020-08-12] MEDS ORDERED: LEVOTHYROXINE 125MCG TABLET (0.125MG) PO SCH (06:00)
[2020-08-12 06:17] LABS: ALBUMIN 2.3 GM/DL (3.2-5.2); ALT/SGPT 104 U/L (12-78); BILIRUBIN,TOTAL 0.6 MG/DL (0.2-1.0); BLOOD UREA NITROGEN 6 MG/DL (7-18); CALCIUM LEVEL 7.6 MG/DL (8.8-10.2); CARBON DIOXIDE LEVEL 32 MEQ/L (21-32); CHLORIDE LEVEL 104 MEQ/L (98-107); CREATININE FOR GFR 0.79 MG/DL (0.55-1.30); GLOMERULAR FILTRATION RATE > 60.0 (>45); GLUCOSE, FASTING 99 MG/DL (70-100); MAGNESIUM LEVEL 1.3 MG/DL (1.8-2.4); POTASSIUM SERUM 3.2 MEQ/L (3.5-5.1); SODIUM LEVEL 141 MEQ/L (136-145); TOTAL PROTEIN 6.3 GM/DL (6.4-8.2)
[2020-08-12] MEDS: DOCUSATE SODIUM 100MG CAPSULE PO SCH (08:13)
[2020-08-12] MEDS ORDERED: CETIRIZINE (ZyrTEC) 10 MG TAB PO SCH (09:00)
[2020-08-12] MEDS ORDERED: FLUoxetine 20 MG CAP PO SCH (09:00)
[2020-08-12] MEDS ORDERED: ASPIRIN 81 MG CHEW TABLET PO SCH (09:00)
[2020-08-12] MEDS ORDERED: PANTOPRAZOLE 40MG TAB (PROTONIX) PO SCH (09:00)
[2020-08-12] MEDS ORDERED: NICOTINE 7 MG/24 HR TRANSDERMAL TOP SCH (09:00)
[2020-08-12] MEDS ORDERED: NORETHINDRONE 5 MG PO SCH (09:00)
[2020-08-12] MEDS ORDERED: POTASSIUM CHLORIDE 10 MEQ SR TABLET PO ONE (09:30)
[2020-08-12] MEDS ORDERED: MAG SULF 1GM/100ML (MAG RUN) 1 GM in IV 1 EA IV ONE (09:30)
[2020-08-12 10:16] LABS: FERRITIN 18 NG/ML (8-252); IRON (FE) 20 UG/DL (50-170); PERCENT SATURATION 5.5 % (13.2-45.0); TOTAL IRON BINDING CAPACITY 363 UG/DL (250-450)
--- NOTE | 2020-08-12 10:42 | REP ---
INDICATION: transaminitis COMPARISON: None. TECHNIQUE: Real time mead scale ultrasound examination using curved array transducer. FINDINGS: Examination is limited by body habitus and significant overlying bowel gas. Visualized portions of the liver are relatively normal and without obvious focal hepatic lesion. The pancreas is incompletely evaluated, but visualized portions of the head/uncinate process appear relatively normal. The gallbladder is not definitively identified although a curvilinear echogenic focus with posterior shadowing suggest the possibility of cholelithiasis forming a [id number] (REBECA) sign. There is no evidence for biliary ductal dilatation and the common bile duct measures 5.3 mm diameter. The right kidney is normal in reniform shape without hydronephrosis and measures 9.9 x 4.8 x 3.9 cm. No ascites in the visualized right upper quadrant. IMPRESSION: 1. Limited examination with no obvious abnormality to the liver, visualized pancreas, or right kidney. 2. The gallbladder is not definitively identified although cholelithiasis forming a REBECA sign cannot be excluded. No associated obvious pericholecystic fluid or biliary ductal dilatation. <Electronically signed by Denilson Salazar > 08/12/20 [id number]
[2020-08-12 16:24] LABS: HEMATOCRIT 30.4 % (36.0-47.0); HEMOGLOBIN 9.5 g/dl (12.0-15.5); MEAN CORPUSCULAR HEMOGLOBIN 27.5 pg (27.0-33.0); MEAN CORPUSCULAR HGB CONC 31.3 g/dl (32.0-36.5); MEAN CORPUSCULAR VOLUME 87.9 fl (80.0-96.0); PLATELET COUNT, AUTOMATED 388 10^3/uL (150-450); RED BLOOD COUNT 3.46 10^6/uL (4.00-5.40); WHITE BLOOD COUNT 10.7 10^3/uL (4.0-10.0)
[2020-08-14 10:49] LABS: VITAMIN B12 LEVEL 532 PG/ML (247-911)
[2020-08-14 10:50] LABS: FOLATE 6.6 NG/ML (>5.4)
== END 2020-08-12 17:53 | disposition home or self-care (01) | DRG 532 ==
LOC: M ED 18:53 → M ED INP 22:11 → ENRESERV 23:27 → M MSPAV 08-12 00:27
PROVIDERS: ADMIT Family Medicine; ATTEND Family Medicine
PROC: 30233N1 Transfusion of Nonautologous Red Blood Cells into Peripheral Vein, Percutaneous Approach (ICD-10-PCS; principal; 2020-08-11)
DX: N93.8 Other specified abnormal uterine and vaginal bleeding (principal); D62 Acute posthemorrhagic anemia; I10 Essential (primary) hypertension; E03.9 Hypothyroidism, unspecified; F17.200 Nicotine dependence, unspecified, uncomplicated; F32.9 Major depressive disorder, single episode, unspecified; Z86.73 Personal history of transient ischemic attack (TIA), and cerebral infarction without residual deficits; Z79.82 Long term (current) use of aspirin; Z79.899 Other long term (current) drug therapy

== ENCOUNTER → 2020-08-11 | Outpatient (REF) | payer BC ==
[~2020-08-11] MED LIST changes: +ATOR80TA59 PO; +CETI10TA4 PO; +FLUO20CA20 PO; +FLUO20CA22 PO; +LISI10TA22 PO; +NICO7DIS24 TOP; +PANT-23 PO; +PANT40TA29 PO
[2020-08-11 15:57] LABS: BASO # 0.1 10^3/uL (0.0-0.2); BASO % 0.8 % (0.0-1.0); EOS # 0.2 10^3/uL (0.0-0.5); EOS % 2.5 % (0.0-3.0); HEMATOCRIT 21.2 % (36.0-47.0); LYMPH # 1.7 10^3/uL (1.5-5.0); LYMPH % 18.6 % (24.0-44.0); MEAN CORPUSCULAR HEMOGLOBIN 26.9 pg (27.0-33.0); MEAN CORPUSCULAR HGB CONC 28.3 g/dl (32.0-36.5); MEAN CORPUSCULAR VOLUME 95.1 fl (80.0-96.0); MONO # 0.6 10^3/uL (0.0-0.8); NEUTROPHILS # 6.3 10^3/uL (1.5-8.5); NEUTROPHILS % 70.7 % (36.0-66.0); PLATELET COUNT, AUTOMATED 402 10^3/uL (150-450); RED BLOOD COUNT 2.23 10^6/uL (4.00-5.40); WHITE BLOOD COUNT 8.9 10^3/uL (4.0-10.0)
== END ==
LOC: M SHH 15:28
PROVIDERS: ATTEND Physician Assistant Medical
DX: N95.0 Postmenopausal bleeding (principal)

== ENCOUNTER → 2020-09-12 | Outpatient (REF) | payer BC ==
[~2020-09-12] MED LIST changes: +ATOR80TA59 PO; +CETI10TA4 PO; +FLUO20CA20 PO; +NICO7DIS24 TOP; +PANT-23 PO
[2020-09-12 18:28] LABS: BASO # 0.1 10^3/uL (0.0-0.2); BASO % 0.8 % (0.0-1.0); EOS # 0.2 10^3/uL (0.0-0.5); EOS % 2.2 % (0.0-3.0); HEMATOCRIT 32.2 % (36.0-47.0); HEMOGLOBIN 9.7 g/dl (12.0-15.5); LYMPH # 1.7 10^3/uL (1.5-5.0); LYMPH % 17.9 % (24.0-44.0); MEAN CORPUSCULAR HEMOGLOBIN 25.1 pg (27.0-33.0); MEAN CORPUSCULAR HGB CONC 30.1 g/dl (32.0-36.5); MEAN CORPUSCULAR VOLUME 83.2 fl (80.0-96.0); MONO # 0.6 10^3/uL (0.0-0.8); MONO % 6.4 % (2.0-8.0); NEUTROPHILS # 6.9 10^3/uL (1.5-8.5); NEUTROPHILS % 72.1 % (36.0-66.0); PLATELET COUNT, AUTOMATED 519 10^3/uL (150-450); RED BLOOD COUNT 3.87 10^6/uL (4.00-5.40); WHITE BLOOD COUNT 9.5 10^3/uL (4.0-10.0)
[2020-09-12 18:56] LABS: ALBUMIN 2.6 GM/DL (3.2-5.2); ALT/SGPT 203 U/L (12-78); BILIRUBIN,TOTAL 0.3 MG/DL (0.2-1.0); BLOOD UREA NITROGEN 7 MG/DL (7-18); CALCIUM LEVEL 8.6 MG/DL (8.8-10.2); CARBON DIOXIDE LEVEL 26 MEQ/L (21-32); CHLORIDE LEVEL 103 MEQ/L (98-107); CREATININE FOR GFR 0.72 MG/DL (0.55-1.30); FERRITIN 21 NG/ML (8-252); FREE T4 1.14 NG/DL (0.76-1.46); GLOMERULAR FILTRATION RATE > 60.0 (>45); GLUCOSE, FASTING 78 MG/DL (70-100); IRON (FE) 18 UG/DL (50-170); MAGNESIUM LEVEL 1.6 MG/DL (1.8-2.4); PERCENT SATURATION 4.2 % (13.2-45.0); POTASSIUM SERUM 3.6 MEQ/L (3.5-5.1); SODIUM LEVEL 138 MEQ/L (136-145); TOTAL IRON BINDING CAPACITY 424 UG/DL (250-450)
== END ==
LOC: M SFHCADAM 12:12
PROVIDERS: ATTEND Physician Assistant Medical
DX: E55.9 Vitamin D deficiency, unspecified (principal); E03.9 Hypothyroidism, unspecified; I10 Essential (primary) hypertension

== ENCOUNTER 2020-09-13 23:35 | Emergency (ER) | payer BC ==
[~2020-09-13] VITALS: Ht 170.2 cm; Wt 85.0 kg
[2020-09-14 00:44] LABS: BASO # 0.1 10^3/uL (0.0-0.2); BASO % 0.8 % (0.0-1.0); EOS # 0.3 10^3/uL (0.0-0.5); EOS % 2.1 % (0.0-3.0); HEMATOCRIT 30.2 % (36.0-47.0); LYMPH # 1.4 10^3/uL (1.5-5.0); LYMPH % 10.8 % (24.0-44.0); MEAN CORPUSCULAR HEMOGLOBIN 24.5 pg (27.0-33.0); MEAN CORPUSCULAR HGB CONC 29.8 g/dl (32.0-36.5); MEAN CORPUSCULAR VOLUME 82.1 fl (80.0-96.0); MONO # 0.7 10^3/uL (0.0-0.8); MONO % 5.8 % (2.0-8.0); NEUTROPHILS # 10.1 10^3/uL (1.5-8.5); NEUTROPHILS % 79.8 % (36.0-66.0); PLATELET COUNT, AUTOMATED 488 10^3/uL (150-450); RED BLOOD COUNT 3.68 10^6/uL (4.00-5.40); WHITE BLOOD COUNT 12.7 10^3/uL (4.0-10.0)
[2020-09-14 01:04] LABS: INR 1.18; PARTIAL THROMBOPLASTIN TIME 20.2 SECONDS (24.2-38.5); PROTHROMBIN TIME 15.2 SECONDS (12.5-14.3)
[2020-09-14 01:45] VITALS: BP 160/75
--- NOTE | 2020-09-14 02:10 | REPVR ---
PROCEDURE INFORMATION: Exam: US Pelvis Complete, Transabdominal and US Pelvis, Transvaginal and US Duplex Artery and Vein, Ovaries, Complete Exam date and time: 09/14/2020 12:42 AM Age: 64 years old Clinical indication: Other: Vaginal bleeding; Additional info: Post menopausal bleeding TECHNIQUE: Imaging protocol: Real-time transabdominal and transvaginal pelvic ultrasound (complete) with image documentation. Transvaginal imaging was used for better evaluation of the endometrium, adnexa, and/or cervix. Real-time duplex ultrasound scan of the arterial and venous flow of the ovaries with B-mode, color Doppler flow and spectral waveform analysis. COMPARISON: PELVIS NON-OB COMPLETE US 10/20/2019 1:18 PM FINDINGS: Uterus/cervix: Uterus measures 10 x 7 x 8 cm. Markedly thickened heterogeneous vascular endometrial stripe measuring to 3.6 cm in thickness. Right adnexa: Right ovary is obscured by bowel gas. Left adnexa: Left ovary measures 1.8 x 2.7 x 2 cm. Normal waveforms. There is a 1.7 x 1 x 1.4 cm left ovarian cyst containing internal low-level echoes. Intraperitoneal space: No intraperitoneal fluid. Urinary bladder: Normal. IMPRESSION: Markedly thickened heterogeneous vascular endometrial stripe as discussed above. The endometrial thickening has progressed since the previous exam. Appearance is concerning for endometrial neoplasm or hyperplasia. Electronically signed by: Armando Green On 09/14/2020 02:11:26 AM
== END 2020-09-14 02:41 | disposition home or self-care (01) ==
LOC: M ED 23:35 → EDBD 23:35 → M ED 09-14 02:41
DX: N93.9 Abnormal uterine and vaginal bleeding, unspecified (principal); J44.9 Chronic obstructive pulmonary disease, unspecified; I10 Essential (primary) hypertension; Z79.82 Long term (current) use of aspirin; Z79.899 Other long term (current) drug therapy

== ENCOUNTER → 2020-11-13 | Outpatient (REF) | payer BC ==
[2020-11-13 13:32] LABS: BASO # 0.1 10^3/uL (0.0-0.2); EOS # 0.3 10^3/uL (0.0-0.5); EOS % 3.1 % (0.0-3.0); HEMOGLOBIN 10.9 g/dl (12.0-15.5); MEAN CORPUSCULAR HEMOGLOBIN 22.7 pg (27.0-33.0); MEAN CORPUSCULAR HGB CONC 28.7 g/dl (32.0-36.5); MEAN CORPUSCULAR VOLUME 79.2 fl (80.0-96.0); MONO # 0.7 10^3/uL (0.0-0.8); MONO % 7.1 % (2.0-8.0); NEUTROPHILS # 6.8 10^3/uL (1.5-8.5); NEUTROPHILS % 67.9 % (36.0-66.0); PLATELET COUNT, AUTOMATED 499 10^3/uL (150-450)
[2020-11-13 14:04] LABS: ALBUMIN 2.8 GM/DL (3.2-5.2); ALT/SGPT 85 U/L (12-78); BILIRUBIN,TOTAL 0.2 MG/DL (0.2-1.0); BLOOD UREA NITROGEN 16 MG/DL (7-18); CALCIUM LEVEL 9.5 MG/DL (8.8-10.2); CARBON DIOXIDE LEVEL 27 MEQ/L (21-32); CHLORIDE LEVEL 101 MEQ/L (98-107); CREATININE FOR GFR 0.97 MG/DL (0.55-1.30); FERRITIN 26 NG/ML (8-252); GLOMERULAR FILTRATION RATE > 60.0 (>45); GLUCOSE, FASTING 110 MG/DL (70-100); IRON (FE) 18 UG/DL (50-170); PERCENT SATURATION 3.5 % (13.2-45.0); POTASSIUM SERUM 3.7 MEQ/L (3.5-5.1); SODIUM LEVEL 136 MEQ/L (136-145); TOTAL IRON BINDING CAPACITY 515 UG/DL (250-450); TOTAL PROTEIN 7.8 GM/DL (6.4-8.2)
[2020-11-13 14:12] LABS: VITAMIN B12 LEVEL 469 PG/ML (247-911)
== END ==
LOC: M SFHCADAM 11:57
PROVIDERS: ATTEND Physician Assistant Medical
DX: A09 Infectious gastroenteritis and colitis, unspecified (principal); E66.01 Morbid (severe) obesity due to excess calories; I10 Essential (primary) hypertension; D50.9 Iron deficiency anemia, unspecified

== ENCOUNTER 2020-12-05 17:05 | Emergency (ER) | payer BC ==
[~2020-12-05] VITALS: Ht 152.4 cm; Wt 79.7 kg
[2020-12-05 17:06] VITALS: BP 148/65
[2020-12-05] MEDS ORDERED: FERR325T19 (17:43)
[2020-12-05] MEDS ORDERED: MEGE40TA (17:43)
[2020-12-05] MEDS ORDERED: MAGN400T35 (17:43)
== END 2020-12-05 20:22 | disposition left against medical advice (07) ==
LOC: M ED 17:05
DX: Z53.21 Procedure and treatment not carried out due to patient leaving prior to being seen by health care provider (principal)

== ENCOUNTER → 2021-02-12 | Outpatient (REF) | payer BC ==
[~2021-02-12] MED LIST changes: +FERR325T19; +MAGN400T35; +MEGE40TA
[2021-02-12 12:37] LABS: BASO # 0.1 10^3/uL (0.0-0.2); EOS # 0.4 10^3/uL (0.0-0.5); EOS % 3.4 % (0.0-3.0); HEMATOCRIT 41.8 % (36.0-47.0); LYMPH # 2.1 10^3/uL (1.5-5.0); LYMPH % 20.1 % (24.0-44.0); MEAN CORPUSCULAR HEMOGLOBIN 27.8 pg (27.0-33.0); MEAN CORPUSCULAR HGB CONC 31.1 g/dl (32.0-36.5); MEAN CORPUSCULAR VOLUME 89.5 fl (80.0-96.0); MONO # 0.8 10^3/uL (0.0-0.8); MONO % 7.3 % (2.0-8.0); NEUTROPHILS # 6.9 10^3/uL (1.5-8.5); PLATELET COUNT, AUTOMATED 333 10^3/uL (150-450); RED BLOOD COUNT 4.67 10^6/uL (4.00-5.40); WHITE BLOOD COUNT 10.2 10^3/uL (4.0-10.0)
[2021-02-12 15:45] LABS: ALBUMIN 3.3 GM/DL (3.2-5.2); BILIRUBIN,TOTAL 0.5 MG/DL (0.2-1.0); CALCIUM LEVEL 9.5 MG/DL (8.8-10.2); CREATININE FOR GFR 1.3 MG/DL (0.55-1.30); GLOMERULAR FILTRATION RATE 43.9 (>45); PERCENT SATURATION 11.9 % (13.2-45.0); POTASSIUM SERUM 3.4 MEQ/L (3.5-5.1); TOTAL PROTEIN 7.9 GM/DL (6.4-8.2)
[2021-02-12 15:56] LABS: FOLATE 6.5 NG/ML
== END ==
LOC: M SFHCADAM 11:26
PROVIDERS: ATTEND Physician Assistant Medical
DX: E55.9 Vitamin D deficiency, unspecified (principal); D50.9 Iron deficiency anemia, unspecified

== ENCOUNTER → 2021-05-14 | Outpatient (REF) | payer BC ==
[~2021-05-14] MED LIST changes: +ALBU8.5H INH; +CHLO125TA PO; -FERR325T19; +FERR325T19 PO; +FLUO-96 PO; -FLUO20CA20 PO; -LISI-898 PO; +LISI5TAB11 PO; +LOPE2CA PO; -MAGN400T35; +MAGN400T35 PO; -MEGE40TA; +MEGE40TA PO; +MUCI600T31 PO; +PAXLOVID PO; +POTA-151 PO; +SYMB16INH INH
[2021-05-14 12:48] LABS: BASO # 0.1 10^3/uL (0.0-0.2); BASO % 0.9 % (0.0-1.0); EOS # 0.3 10^3/uL (0.0-0.5); HEMATOCRIT 41.7 % (36.0-47.0); HEMOGLOBIN 13.4 g/dl (12.0-15.5); LYMPH # 1.5 10^3/uL (1.5-5.0); MEAN CORPUSCULAR HEMOGLOBIN 29.8 pg (27.0-33.0); MEAN CORPUSCULAR HGB CONC 32.1 g/dl (32.0-36.5); MEAN CORPUSCULAR VOLUME 92.9 fl (80.0-96.0); MONO # 0.5 10^3/uL (0.0-0.8); NEUTROPHILS % 70.3 % (36.0-66.0); PLATELET COUNT, AUTOMATED 329 10^3/uL (150-450); RED BLOOD COUNT 4.49 10^6/uL (4.00-5.40); WHITE BLOOD COUNT 8.5 10^3/uL (4.0-10.0)
[2021-05-14 13:41] LABS: ALBUMIN 3.3 GM/DL (3.2-5.2); BILIRUBIN,TOTAL 0.6 MG/DL (0.2-1.0); CALCIUM LEVEL 9.6 MG/DL (8.8-10.2); CHOLESTEROL RISK RATIO 2.34 (<5); CREATININE FOR GFR 1.27 MG/DL (0.55-1.30); GLOMERULAR FILTRATION RATE 45.1 (>45); MAGNESIUM LEVEL 1.8 MG/DL (1.8-2.4); POTASSIUM SERUM 2.9 MEQ/L (3.5-5.1); THYROID STIMULATING HORMONE 1.67 uIU/ML (0.358-3.740); TOTAL 25(OH) VITAMIN D 24.6 NG/ML (30.0-100.0); TOTAL PROTEIN 7.7 GM/DL (6.4-8.2)
== END ==
LOC: M SFHCADAM 09:37
PROVIDERS: ATTEND Physician Assistant Medical
DX: D50.9 Iron deficiency anemia, unspecified (principal); E83.42 Hypomagnesemia; E03.9 Hypothyroidism, unspecified; F32.0 Major depressive disorder, single episode, mild; E66.01 Morbid (severe) obesity due to excess calories

== ENCOUNTER 2021-06-18 20:18 | Inpatient (IN) | payer BC ==
[~2021-06-18] VITALS: Ht 157.5 cm; Wt 78.5 kg
[~2021-06-18 20:18] MED LIST changes: -ALBU8.5H INH; -CHLO125TA PO; -LOPE2CA PO; -MUCI600T31 PO; -PAXLOVID PO; -POTA-151 PO; -SYMB16INH INH
[2021-06-18] MEDS ORDERED: ONDANSETRON 4MG/2ML VIAL IV ONE (21:55)
[2021-06-18 22:45] LABS: INR 1.13; PROTHROMBIN TIME 14.9 SECONDS (12.7-14.5)
[2021-06-18 22:46] LABS: PARTIAL THROMBOPLASTIN TIME 23.4 SECONDS (25.9-37.0)
[2021-06-18 23:40] LABS: D-DIMER QUANT 3918.34 ng/ml (<500)
[2021-06-19] VITALS (16 sets, daily range): BP systolic 85–136; BP diastolic 49–85; O2SAT 93–96
[2021-06-19 00:56] LABS: BASO # 0.1 10^3/uL (0.0-0.2); BASO % 0.3 % (0.0-1.0); EOS # 0.1 10^3/uL (0.0-0.5); EOS % 0.3 % (0.0-3.0); HEMATOCRIT 45.4 % (36.0-47.0); HEMOGLOBIN 14.4 g/dl (12.0-15.5); LYMPH # 0.8 10^3/uL (1.5-5.0); LYMPH % 4.4 % (24.0-44.0); MEAN CORPUSCULAR HEMOGLOBIN 29.8 pg (27.0-33.0); MEAN CORPUSCULAR HGB CONC 31.7 g/dl (32.0-36.5); MEAN CORPUSCULAR VOLUME 93.8 fl (80.0-96.0); MONO % 5.4 % (2.0-8.0); NEUTROPHILS # 16.3 10^3/uL (1.5-8.5); NEUTROPHILS % 88.4 % (36.0-66.0); PLATELET COUNT, AUTOMATED 356 10^3/uL (150-450); RED BLOOD COUNT 4.84 10^6/uL (4.00-5.40); WHITE BLOOD COUNT 18.5 10^3/uL (4.0-10.0)
[2021-06-19 00:58] LABS: ALBUMIN 3.2 GM/DL (3.2-5.2); BILIRUBIN,DIRECT 0.1 MG/DL (0.0-0.2); BILIRUBIN,TOTAL 0.3 MG/DL (0.2-1.0); C REACTIVE PROTEIN QUANTITATIV 4.69 MG/DL (0.00-0.30); CREATININE FOR GFR 7.61 MG/DL (0.55-1.30); GLOMERULAR FILTRATION RATE 5.7 (>45); POTASSIUM SERUM 3.4 MEQ/L (3.5-5.1); TOTAL PROTEIN 7.8 GM/DL (6.4-8.2)
[2021-06-19] MEDS ORDERED: NS 1,000 ML IV ONE ×2 (02:50)
[2021-06-19] MEDS ORDERED: DOXYCYCLINE HYCLATE 100 MG in D5W MINI-BAG PLUS 100 ML IV ONE (03:05)
[2021-06-19] MEDS ORDERED: cefTRIAXone SOD 1 GM in D5W MINI-BAG PLUS 50 ML IV ONE (03:05)
[2021-06-19] MEDS ORDERED: ACETAMINOPHEN TAB 650MG DOSE (2X325MG) PO PRN (04:05)
[2021-06-19] MEDS ORDERED: HEPARIN SOD (PORCINE) 5000UNITS/ML 1ML VIAL/SYRINGE IV PRN (04:05)
[2021-06-19] MEDS ORDERED: HEPARIN DRIP 25,000 UNITS in IV 1 EA IV SCH (04:05)
[2021-06-19] MEDS ORDERED: NS 1,000 ML IV SCH (04:05)
[2021-06-19] MEDS ORDERED: IPRATROPIUM 0.5MG/ALBUTEROL 2.5MG INH SOL UD 3ML (DUONEB) INH PRN (04:05)
[2021-06-19] MEDS ORDERED: POTASSIUM CHLORIDE 10MEQ SR TABLET PO ONE ×2 (04:20→08:50)
[2021-06-19 07:44] LABS: HEMATOCRIT 42.5 % (36.0-47.0); HEMOGLOBIN 13.5 g/dl (12.0-15.5); MEAN CORPUSCULAR HEMOGLOBIN 29.5 pg (27.0-33.0); MEAN CORPUSCULAR HGB CONC 31.8 g/dl (32.0-36.5); MEAN CORPUSCULAR VOLUME 92.8 fl (80.0-96.0); PLATELET COUNT, AUTOMATED 322 10^3/uL (150-450); RED BLOOD COUNT 4.58 10^6/uL (4.00-5.40); WHITE BLOOD COUNT 14.3 10^3/uL (4.0-10.0)
[2021-06-19] MEDS: IPRATROPIUM 0.5MG/ALBUTEROL 2.5MG INH SOL UD 3ML (DUONEB) INH SCH ×3 (08:00→19:22)
[2021-06-19 08:12] LABS: ALBUMIN 2.6 GM/DL (3.2-5.2); BILIRUBIN,TOTAL 0.2 MG/DL (0.2-1.0); CALCIUM LEVEL 8.3 MG/DL (8.8-10.2); CREATININE FOR GFR 6.9 MG/DL (0.55-1.30); GLOMERULAR FILTRATION RATE 6.4 (>45); POTASSIUM SERUM 3.2 MEQ/L (3.5-5.1); TOTAL PROTEIN 6.7 GM/DL (6.4-8.2)
[2021-06-19] MEDS: DOXYCYCLINE HYCLATE 100 MG in D5W MINI-BAG PLUS 100 ML IV SCH ×2 (08:55→20:09)
[2021-06-19] MEDS: dexameTHASONE 4 MG/ML 1ML VIAL (J1100 PER 1MG) IV SCH (08:56)
[2021-06-19] MEDS ORDERED: REMDESIVIR 200 MG in NS 250 ML IV ONE (09:00)
[2021-06-19] MEDS ORDERED: CHLO125TA PO (09:04)
[2021-06-19] MEDS ORDERED: PAXLOVID PO (09:04)
[2021-06-19] MEDS ORDERED: SYMB16INH INH (09:04)
[2021-06-19] MEDS ORDERED: POTA-151 PO (09:04)
[2021-06-19] MEDS ORDERED: ALBU8.5H INH (09:06)
[2021-06-19] MEDS ORDERED: HOME MED LIST COMPLETE! XX SCH (09:10)
[2021-06-19] MEDS ORDERED: FLUBLOK(EGG FREE)(QUAD)INFLUENZA VACC 0.5ML SYRINGE 18YRS & OLDER IM SCH (10:35)
[2021-06-19] MEDS ORDERED: SODIUM CHLORIDE 0.9% INJ 10 ML SYR IV ONE (11:00)
[2021-06-19] MEDS: SODIUM BICARBONATE 75 MEQ in KCL 20MEQ IN 0.45NS 1000ML 1,000 ML IV SCH ×2 (14:22)
[2021-06-19] MEDS ORDERED: PILL CUTTER 1 EACH XX PRN (14:25)
[2021-06-19] MEDS ORDERED: CEPACOL LOZENGE PO PRN (14:40)
[2021-06-19] MEDS: FLUoxetine 20 MG CAP PO SCH (15:07)
[2021-06-19] MEDS: FERROUS SULFATE 325MG TAB PO SCH (15:07)
[2021-06-19] MEDS: ASPIRIN 81 MG CHEW TABLET PO SCH (15:07)
[2021-06-19] MEDS: CLOPIDOGREL 75 MG TAB PO SCH (15:07)
[2021-06-19] MEDS: ATORVASTATIN 20 MG TAB PO SCH (15:10)
[2021-06-19] MEDS: guaiFENesin ER 600 MG TAB PO SCH ×2 (16:49→20:10)
[2021-06-19] MEDS: SYMBICORT 160/4.5MCG INHALER 6GM INH SCH (19:22)
[2021-06-19] MEDS: HEPARIN SOD (PORCINE) 5000UNITS/ML 1ML VIAL/SYRINGE SQ SCH (20:10)
[2021-06-20] VITALS (18 sets, daily range): BP systolic 102–155; BP diastolic 48–76; O2SAT 91–96
[2021-06-20] MEDS: IPRATROPIUM 0.5MG/ALBUTEROL 2.5MG INH SOL UD 3ML (DUONEB) INH SCH ×4 (02:00→20:00)
[2021-06-20] MEDS: SODIUM BICARBONATE 75 MEQ in KCL 20MEQ IN 0.45NS 1000ML 1,000 ML IV SCH ×2 (03:39)
[2021-06-20 06:07] LABS: ALBUMIN 2.3 GM/DL (3.2-5.2); ALT/SGPT 40 U/L (12-78); BILIRUBIN,DIRECT < 0.1 MG/DL (0.0-0.2); BILIRUBIN,TOTAL 0.2 MG/DL (0.2-1.0)
[2021-06-20] MEDS: LEVOTHYROXINE 125MCG TABLET (0.125MG) PO SCH (06:14)
[2021-06-20] MEDS ORDERED: cefTRIAXone SOD 1 GM in D5W MINI-BAG PLUS 50 ML IV SCH (07:00)
[2021-06-20] MEDS: guaiFENesin ER 600 MG TAB PO SCH ×2 (08:06→21:25)
[2021-06-20] MEDS: CLOPIDOGREL 75 MG TAB PO SCH (08:06)
[2021-06-20] MEDS: FERROUS SULFATE 325MG TAB PO SCH (08:06)
[2021-06-20] MEDS: ASPIRIN 81 MG CHEW TABLET PO SCH (08:07)
[2021-06-20] MEDS: ATORVASTATIN 20 MG TAB PO SCH (08:07)
[2021-06-20] MEDS: HEPARIN SOD (PORCINE) 5000UNITS/ML 1ML VIAL/SYRINGE SQ SCH ×2 (08:07→21:25)
[2021-06-20] MEDS: DOXYCYCLINE HYCLATE 100 MG in D5W MINI-BAG PLUS 100 ML IV SCH (08:08)
[2021-06-20] MEDS: FLUoxetine 20 MG CAP PO SCH (08:12)
[2021-06-20] MEDS: dexameTHASONE 4 MG/ML 1ML VIAL (J1100 PER 1MG) IV SCH (08:13)
[2021-06-20] MEDS: SYMBICORT 160/4.5MCG INHALER 6GM INH SCH ×2 (08:30→20:15)
[2021-06-20] MEDS ORDERED: REMDESIVIR 100 MG in NS 250 ML IV SCH (09:00)
[2021-06-20 09:51] LABS: BLOOD UREA NITROGEN 75 MG/DL (7-18); CALCIUM LEVEL 8.8 MG/DL (8.8-10.2); CARBON DIOXIDE LEVEL 14 MEQ/L (21-32); CHLORIDE LEVEL 116 MEQ/L (98-107); CREATININE FOR GFR 3.19 MG/DL (0.55-1.30); GLOMERULAR FILTRATION RATE 15.6 (>45); GLUCOSE, FASTING 98 MG/DL (70-100); PHOSPHORUS LEVEL 3.8 MG/DL (2.5-4.9); POTASSIUM SERUM 3.2 MEQ/L (3.5-5.1); SODIUM LEVEL 146 MEQ/L (136-145)
[2021-06-20] MEDS: LOPERAMIDE 2 MG CAPLET PO PRN ×3 (09:57→16:21)
[2021-06-20] MEDS: POTASSIUM CHLORIDE 10MEQ SR TABLET PO SCH (09:57)
[2021-06-20] MEDS ORDERED: SODIUM CHLORIDE 0.9% INJ 10 ML SYR IV SCH (10:00)
[2021-06-20] MEDS: SODIUM BICARBONATE 100 MEQ in KCL 20MEQ IN D5W 1000ML 1,000 ML IV SCH ×4 (15:38→22:19)
[2021-06-21] VITALS (8 sets, daily range): BP systolic 114–131; BP diastolic 58–81; O2SAT 90–94
[2021-06-21] MEDS: IPRATROPIUM 0.5MG/ALBUTEROL 2.5MG INH SOL UD 3ML (DUONEB) INH SCH ×4 (01:55→22:54)
[2021-06-21] MEDS ORDERED: METOPROLOL TART 12.5 MG PER 1/2 TAB PO STA (03:55)
[2021-06-21] MEDS ORDERED: METOPROLOL TART 12.5 MG PER 1/2 TAB PO SCH (04:30)
[2021-06-21 04:58] LABS: HEMATOCRIT 35.2 % (36.0-47.0); HEMOGLOBIN 11.7 g/dl (12.0-15.5); MEAN CORPUSCULAR HEMOGLOBIN 30.1 pg (27.0-33.0); MEAN CORPUSCULAR HGB CONC 33.2 g/dl (32.0-36.5); MEAN CORPUSCULAR VOLUME 90.5 fl (80.0-96.0); PLATELET COUNT, AUTOMATED 291 10^3/uL (150-450); RED BLOOD COUNT 3.89 10^6/uL (4.00-5.40)
[2021-06-21 05:10] LABS: INR 1.21; PARTIAL THROMBOPLASTIN TIME 28.6 SECONDS (25.9-37.0); PROTHROMBIN TIME 15.7 SECONDS (12.7-14.5)
[2021-06-21 05:38] LABS: ALBUMIN 2.2 GM/DL (3.2-5.2); BILIRUBIN,DIRECT 0.1 MG/DL (0.0-0.2); BILIRUBIN,TOTAL 0.2 MG/DL (0.2-1.0); CREATININE FOR GFR 1.56 MG/DL (0.55-1.30); GLOMERULAR FILTRATION RATE 35.6 (>45); PHOSPHORUS LEVEL 2.1 MG/DL (2.5-4.9); POTASSIUM SERUM 3.4 MEQ/L (3.5-5.1); TOTAL PROTEIN 5.5 GM/DL (6.4-8.2)
[2021-06-21] MEDS: SODIUM BICARBONATE 100 MEQ in KCL 20MEQ IN D5W 1000ML 1,000 ML IV SCH ×2 (05:38)
[2021-06-21] MEDS: LEVOTHYROXINE 125MCG TABLET (0.125MG) PO SCH (06:13)
[2021-06-21] MEDS: SYMBICORT 160/4.5MCG INHALER 6GM INH SCH ×2 (08:00→22:03)
[2021-06-21] MEDS: CLOPIDOGREL 75 MG TAB PO SCH (08:57)
[2021-06-21] MEDS: HEPARIN SOD (PORCINE) 5000UNITS/ML 1ML VIAL/SYRINGE SQ SCH ×2 (08:57→22:03)
[2021-06-21] MEDS: FLUoxetine 20 MG CAP PO SCH (08:58)
[2021-06-21] MEDS: FERROUS SULFATE 325MG TAB PO SCH (08:58)
[2021-06-21] MEDS: ASPIRIN 81 MG CHEW TABLET PO SCH (08:58)
[2021-06-21] MEDS: ATORVASTATIN 20 MG TAB PO SCH (08:58)
[2021-06-21] MEDS: guaiFENesin ER 600 MG TAB PO SCH ×2 (08:58→22:03)
[2021-06-21] MEDS: SODIUM BICARBONATE 50 MEQ in KCL 20MEQ IN 0.45NS 1000ML 1,000 ML IV SCH ×4 (09:26→18:44)
[2021-06-21] MEDS: POTASSIUM CHLORIDE 10MEQ SR TABLET PO SCH (09:27)
[2021-06-21] MEDS: PANTOPRAZOLE 40MG TAB (PROTONIX) PO SCH (10:29)
[2021-06-22] MEDS: IPRATROPIUM 0.5MG/ALBUTEROL 2.5MG INH SOL UD 3ML (DUONEB) INH SCH ×4 (04:34→20:00)
[2021-06-22] MEDS: SODIUM BICARBONATE 50 MEQ in KCL 20MEQ IN 0.45NS 1000ML 1,000 ML IV SCH ×2 (04:56)
[2021-06-22] MEDS: LEVOTHYROXINE 125MCG TABLET (0.125MG) PO SCH (05:38)
[2021-06-22 06:45] VITALS: BP 141/83
[2021-06-22 06:49] LABS: HEMOGLOBIN 10.8 g/dl (12.0-15.5); MEAN CORPUSCULAR HEMOGLOBIN 29.8 pg (27.0-33.0); MEAN CORPUSCULAR HGB CONC 32.7 g/dl (32.0-36.5); MEAN CORPUSCULAR VOLUME 91.2 fl (80.0-96.0); PLATELET COUNT, AUTOMATED 274 10^3/uL (150-450); RED BLOOD COUNT 3.62 10^6/uL (4.00-5.40)
[2021-06-22 07:34] LABS: ALBUMIN 2.1 GM/DL (3.2-5.2); CALCIUM LEVEL 7.7 MG/DL (8.8-10.2); CREATININE FOR GFR 1.21 MG/DL (0.55-1.30); GLOMERULAR FILTRATION RATE 47.7 (>45); PHOSPHORUS LEVEL 1.6 MG/DL (2.5-4.9); POTASSIUM SERUM 2.9 MEQ/L (3.5-5.1)
[2021-06-22] MEDS: SYMBICORT 160/4.5MCG INHALER 6GM INH SCH ×2 (08:08→20:15)
[2021-06-22 08:28] LABS: MAGNESIUM LEVEL 1.7 MG/DL (1.8-2.4)
[2021-06-22] MEDS: ATORVASTATIN 20 MG TAB PO SCH (09:17)
[2021-06-22] MEDS: HEPARIN SOD (PORCINE) 5000UNITS/ML 1ML VIAL/SYRINGE SQ SCH ×2 (09:17→20:18)
[2021-06-22] MEDS: ASPIRIN 81 MG CHEW TABLET PO SCH (09:17)
[2021-06-22] MEDS: FERROUS SULFATE 325MG TAB PO SCH (09:18)
[2021-06-22] MEDS: PANTOPRAZOLE 40MG TAB (PROTONIX) PO SCH (09:18)
[2021-06-22] MEDS: POTASSIUM CHLORIDE 10MEQ SR TABLET PO SCH ×3 (09:18→20:17)
[2021-06-22] MEDS: FLUoxetine 20 MG CAP PO SCH (09:18)
[2021-06-22] MEDS: CLOPIDOGREL 75 MG TAB PO SCH (09:18)
[2021-06-22] MEDS: guaiFENesin ER 600 MG TAB PO SCH ×2 (09:18→20:18)
[2021-06-22] MEDS ORDERED: NEUTRA-PHOS 1.5 GM PACKET PO ONE (10:00)
[2021-06-22] MEDS: POTASSIUM PHOSPHATE IV SCH ×2 (10:23→22:58)
[2021-06-22] MEDS: NS IV SCH ×2 (10:23→22:58)
[2021-06-22 13:42] VITALS: BP 117/60
[2021-06-22 22:00] VITALS: BP 143/87
[2021-06-23] MEDS: IPRATROPIUM 0.5MG/ALBUTEROL 2.5MG INH SOL UD 3ML (DUONEB) INH SCH ×2 (01:54→07:51)
[2021-06-23] MEDS: LEVOTHYROXINE 125MCG TABLET (0.125MG) PO SCH (04:23)
[2021-06-23 04:24] VITALS: BP 128/59
[2021-06-23] MEDS: SYMBICORT 160/4.5MCG INHALER 6GM INH SCH (07:50)
[2021-06-23 08:33] LABS: HEMATOCRIT 37.4 % (36.0-47.0); HEMOGLOBIN 11.8 g/dl (12.0-15.5); MEAN CORPUSCULAR HEMOGLOBIN 29.4 pg (27.0-33.0); MEAN CORPUSCULAR HGB CONC 31.6 g/dl (32.0-36.5); MEAN CORPUSCULAR VOLUME 93.3 fl (80.0-96.0); PLATELET COUNT, AUTOMATED 270 10^3/uL (150-450); RED BLOOD COUNT 4.01 10^6/uL (4.00-5.40); WHITE BLOOD COUNT 13.8 10^3/uL (4.0-10.0)
[2021-06-23] MEDS: FERROUS SULFATE 325MG TAB PO SCH (08:37)
[2021-06-23] MEDS: FLUoxetine 20 MG CAP PO SCH ×2 (08:37→08:40)
[2021-06-23] MEDS: ASPIRIN 81 MG CHEW TABLET PO SCH (08:37)
[2021-06-23] MEDS: ATORVASTATIN 20 MG TAB PO SCH (08:37)
[2021-06-23] MEDS: PANTOPRAZOLE 40MG TAB (PROTONIX) PO SCH (08:37)
[2021-06-23] MEDS: HEPARIN SOD (PORCINE) 5000UNITS/ML 1ML VIAL/SYRINGE SQ SCH (08:38)
[2021-06-23] MEDS: CLOPIDOGREL 75 MG TAB PO SCH (08:38)
[2021-06-23] MEDS: guaiFENesin ER 600 MG TAB PO SCH (08:38)
[2021-06-23 08:43] LABS: INR 1.07; PROTHROMBIN TIME 14.3 SECONDS (12.7-14.5)
[2021-06-23 08:44] LABS: PARTIAL THROMBOPLASTIN TIME 28.3 SECONDS (25.9-37.0)
[2021-06-23 09:02] LABS: ALBUMIN 2.2 GM/DL (3.2-5.2); ALT/SGPT 40 U/L (12-78); BILIRUBIN,DIRECT 0.1 MG/DL (0.0-0.2); BILIRUBIN,TOTAL 0.4 MG/DL (0.2-1.0); BLOOD UREA NITROGEN 23 MG/DL (7-18); CALCIUM LEVEL 7.9 MG/DL (8.8-10.2); CARBON DIOXIDE LEVEL 28 MEQ/L (21-32); CHLORIDE LEVEL 112 MEQ/L (98-107); CREATININE FOR GFR 0.96 MG/DL (0.55-1.30); FERRITIN 137 NG/ML (8-252); GLOMERULAR FILTRATION RATE > 60.0 (>45); GLUCOSE, FASTING 93 MG/DL (70-100); LDH LACTATE DEHYDROGENASE 274 U/L (84-246); PHOSPHORUS LEVEL 2.3 MG/DL (2.5-4.9); POTASSIUM SERUM 4.8 MEQ/L (3.5-5.1); SODIUM LEVEL 145 MEQ/L (136-145); TOTAL PROTEIN 5.4 GM/DL (6.4-8.2)
[2021-06-23 09:59] LABS: MAGNESIUM LEVEL 1.6 MG/DL (1.8-2.4)
[2021-06-23] MEDS ORDERED: LOPE2CA PO (11:18)
[2021-06-23] MEDS ORDERED: PANT40TA29 PO (11:18)
[2021-06-23] MEDS ORDERED: MAGN400T35 PO (11:18)
[2021-06-23] MEDS ORDERED: MUCI600T31 PO (11:18)
[2021-06-23] MEDS ORDERED: MAG SULF 1GM/100ML (MAG RUN) 1 GM in IV 1 EA IV ONE (12:00)
== END 2021-06-23 13:30 | disposition home or self-care (01) | DRG 137 ==
LOC: M ED 20:18 → M ED INP 06-19 04:04 → M ICU 06-19 07:00 → M 4MAIN 06-21 16:02
PROVIDERS: ADMIT Family Medicine; ATTEND Internal Medicine
DX: U07.1 COVID-19 (principal); J96.01 Acute respiratory failure with hypoxia; N17.9 Acute kidney failure, unspecified; D68.69 Other thrombophilia; E87.0 Hyperosmolality and hypernatremia; E87.2 Acidosis; E83.42 Hypomagnesemia; E83.39 Other disorders of phosphorus metabolism; E87.6 Hypokalemia; E03.9 Hypothyroidism, unspecified; Z86.73 Personal history of transient ischemic attack (TIA), and cerebral infarction without residual deficits; Z79.82 Long term (current) use of aspirin; Z79.899 Other long term (current) drug therapy; F32.A Depression, unspecified

== ENCOUNTER → 2021-11-12 | Outpatient (REF) | payer MEDICARE ==
[~2021-11-12] MED LIST changes: +ADV100INH INH; +ALBU8.5H INH; +CEFU50TA PO; +CHLO125TA PO; +LOPE2CA PO; +MUCI600T31 PO; +NYST1POW9 TOP; +PAXLOVID PO; +POTA-151 PO; +SYMB16INH INH
[2021-11-12 17:16] LABS: CALCIUM LEVEL 9.4 MG/DL (8.8-10.2); CREATININE FOR GFR 2.65 MG/DL (0.55-1.30); GLOMERULAR FILTRATION RATE 19.3 (>45); MAGNESIUM LEVEL 2.1 MG/DL (1.8-2.4); POTASSIUM SERUM 4.8 MEQ/L (3.5-5.1)
== END ==
LOC: M SFHCADAM 11:48
PROVIDERS: ATTEND Physician Assistant Medical
DX: E87.6 Hypokalemia (principal); R19.7 Diarrhea, unspecified

== ENCOUNTER 2021-11-13 18:08 | Inpatient (IN) | payer MEDICARE ==
[~2021-11-13] VITALS: Ht 157.5 cm; Wt 75.9 kg
[~2021-11-13 18:08] MED LIST changes: -ADV100INH INH; -CEFU50TA PO; -NYST1POW9 TOP
[2021-11-13] MEDS ORDERED: CHLO125TA PO (18:18)
[2021-11-13] MEDS ORDERED: ADV100INH INH (18:18)
[2021-11-13 18:58] LABS: BASO # 0.1 10^3/uL (0.0-0.2); EOS # 0.4 10^3/uL (0.0-0.5); HEMATOCRIT 37.4 % (36.0-47.0); HEMOGLOBIN 11.8 g/dl (12.0-15.5); LYMPH # 1.8 10^3/uL (1.5-5.0); LYMPH % 14.5 % (24.0-44.0); MEAN CORPUSCULAR HGB CONC 31.6 g/dl (32.0-36.5); MEAN CORPUSCULAR VOLUME 95.2 fl (80.0-96.0); MONO # 0.7 10^3/uL (0.0-0.8); MONO % 5.7 % (2.0-8.0); NEUTROPHILS % 73.6 % (36.0-66.0); PLATELET COUNT, AUTOMATED 377 10^3/uL (150-450); RED BLOOD COUNT 3.93 10^6/uL (4.00-5.40); WHITE BLOOD COUNT 12.2 10^3/uL (4.0-10.0)
[2021-11-13 19:34] LABS: ALBUMIN 2.8 GM/DL (3.2-5.2); BILIRUBIN,DIRECT 0.1 MG/DL (0.0-0.2); BILIRUBIN,TOTAL 0.5 MG/DL (0.2-1.0); CALCIUM LEVEL 9.1 MG/DL (8.8-10.2); CREATININE FOR GFR 4.63 MG/DL (0.55-1.30); GLOMERULAR FILTRATION RATE 10.1 (>45); POTASSIUM SERUM 5.4 MEQ/L (3.5-5.1); TOTAL PROTEIN 7.9 GM/DL (6.4-8.2)
[2021-11-13] MEDS ORDERED: NS 1,000 ML IV ONE (19:50)
[2021-11-13] MEDS ORDERED: CALCIUM GLUCONATE 1,000 MG in D5W MINI-BAG PLUS 100 ML IV ONE (19:50)
[2021-11-13] MEDS ORDERED: NYST1POW9 TOP (20:17)
[2021-11-13] MEDS ORDERED: HOME MED LIST COMPLETE! XX SCH (20:20)
[2021-11-13 20:45] LABS: RSV AMPLIFICATION NEGATIVE (NEGATIVE)
[2021-11-13] MEDS ORDERED: SOD POLYSTYRENE SULFONATE SUSP 15GM 60ML UD PO ONE (21:50)
[2021-11-13] MEDS ORDERED: ACETAMINOPHEN TAB 650MG DOSE (2X325MG) PO PRN (22:00)
[2021-11-13] MEDS: NS 1,000 ML IV SCH (23:09)
[2021-11-14] VITALS (7 sets, daily range): BP systolic 90–105; BP diastolic 44–60
[2021-11-14] MEDS ORDERED: SODIUM CHLORIDE 0.9% 1000ML IV ONE (05:30)
[2021-11-14] MEDS: HEPARIN SOD (PORCINE) 5000UNITS/ML 1ML VIAL/SYRINGE SC SCH ×3 (05:36→21:32)
[2021-11-14 06:01] LABS: APPEARANCE, URINE HAZY (CLEAR); BACTERIA, URINE AUTO 1+ (NEGATIVE); BILIRUBIN, URINE AUTO NEGATIVE (NEGATIVE); BLOOD, URINE BLOOD 2+ (NEGATIVE); COLOR, URINE YELLOW (YELLOW); GLUCOSE, URINE (UA) AUTO NEGATIVE (NEGATIVE); KETONE, URINE AUTO NEGATIVE (NEGATIVE); LEUKOCYTE ESTERASE, URINE AUTO 2+ (NEGATIVE); MUCUS, URINE SMALL (NEGATIVE); NITRITE, URINE AUTO NEGATIVE (NEGATIVE); PROTEIN, URINE AUTO NEGATIVE (NEGATIVE); RBC, URINE AUTO 6 /HPF (0-3); SPECIFIC GRAVITY URINE AUTO 1.014 (1.002-1.035); SQUAMOUS EPITHELIAL CELL UR AU 2 /HPF (0-6); UROBILINOGEN, URINE AUTO 0.2 mg/dL (0.0-2.0); WBC, URINE AUTO 31 /HPF (0-3)
[2021-11-14] MEDS: NS 1,000 ML IV SCH (06:43)
[2021-11-14] MEDS ORDERED: NS 500 ML IV ONE (07:00)
[2021-11-14 07:18] LABS: CALCIUM LEVEL 9.8 MG/DL (8.8-10.2); CREATININE FOR GFR 3.4 MG/DL (0.55-1.30); GLOMERULAR FILTRATION RATE 14.5 (>45); MAGNESIUM LEVEL 2.2 MG/DL (1.8-2.4); POTASSIUM SERUM 3.9 MEQ/L (3.5-5.1)
[2021-11-14] MEDS: ADVAIR HFA 45/21MCG INHALER INH SCH ×2 (08:00→19:45)
[2021-11-14 08:54] LABS: HEMATOCRIT 36.9 % (36.0-47.0); HEMOGLOBIN 11.2 g/dl (12.0-15.5); MEAN CORPUSCULAR HEMOGLOBIN 30.1 pg (27.0-33.0); MEAN CORPUSCULAR HGB CONC 30.4 g/dl (32.0-36.5); MEAN CORPUSCULAR VOLUME 99.2 fl (80.0-96.0); PLATELET COUNT, AUTOMATED 369 10^3/uL (150-450); RED BLOOD COUNT 3.72 10^6/uL (4.00-5.40)
[2021-11-14] MEDS ORDERED: POTASSIUM CHLORIDE 10MEQ SR TABLET PO SCH (09:00)
[2021-11-14] MEDS ORDERED: FERROUS SULFATE 325MG TAB PO SCH (09:00)
[2021-11-14] MEDS: cefTRIAXone SOD 1 GM in D5W MINI-BAG PLUS 50 ML IV SCH (09:12)
[2021-11-14] MEDS ORDERED: LOPERAMIDE 2 MG CAPLET PO PRN (11:05)
[2021-11-14] MEDS ORDERED: ALBUTEROL 90 MCG/ACT 8GM HFA INHALER INH PRN (11:05)
[2021-11-14] MEDS ORDERED: NYSTATIN 100,000 UNITS/GM TOPICAL PWD 15 GM TOP PRN (11:05)
[2021-11-14] MEDS: CLOPIDOGREL 75 MG TAB PO SCH (13:12)
[2021-11-14] MEDS: ASPIRIN 81 MG CHEW TABLET PO SCH (13:12)
[2021-11-14] MEDS: MAGNESIUM OXIDE 400MG TAB (MAG-OX) PO SCH (13:13)
[2021-11-14] MEDS: ATORVASTATIN 20 MG TAB PO SCH (13:13)
[2021-11-14] MEDS: MEGESTROL 40 MG TAB PO SCH ×2 (13:13→20:22)
[2021-11-14] MEDS: SODIUM BICARBONATE 50 MEQ in NS 0.45% 1,000 ML IV SCH (14:35)
[2021-11-15] MEDS: SODIUM BICARBONATE 50 MEQ in NS 0.45% 1,000 ML IV SCH ×2 (00:13→12:13)
[2021-11-15] MEDS: LEVOTHYROXINE 62.5MCG PER 1/2 TAB (0.0625MG) PO SCH (05:36)
[2021-11-15] MEDS: HEPARIN SOD (PORCINE) 5000UNITS/ML 1ML VIAL/SYRINGE SC SCH ×3 (05:37→21:25)
[2021-11-15 06:00] VITALS: BP 105/48
[2021-11-15 06:46] LABS: HEMATOCRIT 28.1 % (36.0-47.0); HEMOGLOBIN 8.9 g/dl (12.0-15.5); MEAN CORPUSCULAR HEMOGLOBIN 29.9 pg (27.0-33.0); MEAN CORPUSCULAR HGB CONC 31.7 g/dl (32.0-36.5); MEAN CORPUSCULAR VOLUME 94.3 fl (80.0-96.0); PLATELET COUNT, AUTOMATED 253 10^3/uL (150-450); RED BLOOD COUNT 2.98 10^6/uL (4.00-5.40); WHITE BLOOD COUNT 6.9 10^3/uL (4.0-10.0)
[2021-11-15 07:00] LABS: BILIRUBIN,TOTAL 0.3 MG/DL (0.2-1.0); CALCIUM LEVEL 8.3 MG/DL (8.8-10.2); CREATININE FOR GFR 1.42 MG/DL (0.55-1.30); GLOMERULAR FILTRATION RATE 39.6 (>45); MAGNESIUM LEVEL 1.4 MG/DL (1.8-2.4); PERCENT SATURATION 22.5 % (13.2-45.0); PHOSPHORUS LEVEL 3.6 MG/DL (2.5-4.9); POTASSIUM SERUM 3.3 MEQ/L (3.5-5.1); TOTAL PROTEIN 5.5 GM/DL (6.4-8.2)
[2021-11-15] MEDS: ADVAIR HFA 45/21MCG INHALER INH SCH ×2 (07:57→19:39)
[2021-11-15] MEDS ORDERED: POTASSIUM CHLORIDE 10MEQ SR TABLET PO ONE (08:15)
[2021-11-15] MEDS ORDERED: MAG SULF 1GM/100ML (MAG RUN) 1 GM in IV 1 EA IV ONE (08:15)
[2021-11-15 08:44] LABS: TOTAL 25(OH) VITAMIN D 31.8 NG/ML (30.0-100.0)
[2021-11-15] MEDS: MEGESTROL 40 MG TAB PO SCH ×2 (08:58→21:25)
[2021-11-15] MEDS: ASPIRIN 81 MG CHEW TABLET PO SCH (08:58)
[2021-11-15] MEDS: MAGNESIUM OXIDE 400MG TAB (MAG-OX) PO SCH (08:58)
[2021-11-15] MEDS: CLOPIDOGREL 75 MG TAB PO SCH (08:58)
[2021-11-15] MEDS: cefTRIAXone SOD 1 GM in D5W MINI-BAG PLUS 50 ML IV SCH (08:59)
[2021-11-15] MEDS: ATORVASTATIN 20 MG TAB PO SCH (08:59)
[2021-11-15] MEDS ORDERED: FERROUS SULFATE 325MG TAB PO SCH (09:00)
[2021-11-15 14:00] VITALS: BP 90/45
[2021-11-15] MEDS: NYSTATIN 100,000 UNITS/GM TOPICAL PWD 15 GM TOP SCH ×2 (15:11→21:26)
[2021-11-15 19:43] VITALS: BP 126/60
[2021-11-16 05:21] VITALS: BP 119/47
[2021-11-16 05:27] VITALS: BP 121/85
[2021-11-16] MEDS: HEPARIN SOD (PORCINE) 5000UNITS/ML 1ML VIAL/SYRINGE SC SCH (05:28)
[2021-11-16] MEDS: LEVOTHYROXINE 62.5MCG PER 1/2 TAB (0.0625MG) PO SCH (05:28)
[2021-11-16 06:20] LABS: HEMATOCRIT 29.5 % (36.0-47.0); HEMOGLOBIN 9.3 g/dl (12.0-15.5); MEAN CORPUSCULAR HEMOGLOBIN 29.5 pg (27.0-33.0); MEAN CORPUSCULAR HGB CONC 31.5 g/dl (32.0-36.5); MEAN CORPUSCULAR VOLUME 93.7 fl (80.0-96.0); PLATELET COUNT, AUTOMATED 258 10^3/uL (150-450); RED BLOOD COUNT 3.15 10^6/uL (4.00-5.40); WHITE BLOOD COUNT 7.7 10^3/uL (4.0-10.0)
[2021-11-16 06:43] LABS: ALBUMIN 2.1 GM/DL (3.2-5.2); BILIRUBIN,TOTAL 0.2 MG/DL (0.2-1.0); CALCIUM LEVEL 8.3 MG/DL (8.8-10.2); CREATININE FOR GFR 1.25 MG/DL (0.55-1.30); GLOMERULAR FILTRATION RATE 45.8 (>45); MAGNESIUM LEVEL 1.5 MG/DL (1.8-2.4); POTASSIUM SERUM 3.3 MEQ/L (3.5-5.1); TOTAL PROTEIN 6.3 GM/DL (6.4-8.2)
[2021-11-16] MEDS: ADVAIR HFA 45/21MCG INHALER INH SCH (07:54)
[2021-11-16] MEDS ORDERED: MAG SULF 1GM/100ML (MAG RUN) 1 GM in IV 1 EA IV ONE (08:00)
[2021-11-16] MEDS ORDERED: POTASSIUM CHLORIDE 10MEQ SR TABLET PO ONE (08:00)
[2021-11-16] MEDS ORDERED: MAGN400T35 PO (08:02)
[2021-11-16] MEDS ORDERED: LOPE2CA PO (08:02)
[2021-11-16] MEDS ORDERED: FERR325T19 PO (08:02)
[2021-11-16] MEDS ORDERED: CEFU50TA PO (08:04)
[2021-11-16] MEDS: ASPIRIN 81 MG CHEW TABLET PO SCH (08:08)
[2021-11-16] MEDS: ATORVASTATIN 20 MG TAB PO SCH (08:09)
[2021-11-16] MEDS: CLOPIDOGREL 75 MG TAB PO SCH (08:09)
[2021-11-16] MEDS: MAGNESIUM OXIDE 400MG TAB (MAG-OX) PO SCH (08:09)
[2021-11-16] MEDS: cefTRIAXone SOD 1 GM in D5W MINI-BAG PLUS 50 ML IV SCH (08:10)
[2021-11-16] MEDS: NYSTATIN 100,000 UNITS/GM TOPICAL PWD 15 GM TOP SCH (08:11)
[2021-11-16] MEDS: MEGESTROL 40 MG TAB PO SCH (08:16)
[2021-11-16] MEDS ORDERED: FERROUS SULFATE 325MG TAB PO SCH (09:00)
== END 2021-11-16 11:25 | disposition home or self-care (01) | DRG 683 ==
LOC: M ED 18:08 → M ED INP 21:51 → ENRESERV 22:22 → M MSPAV 23:45
PROVIDERS: ADMIT Internal Medicine; ATTEND Internal Medicine
DX: N17.9 Acute kidney failure, unspecified (principal); N39.0 Urinary tract infection, site not specified; E78.5 Hyperlipidemia, unspecified; I10 Essential (primary) hypertension; E03.9 Hypothyroidism, unspecified; E87.6 Hypokalemia; E87.5 Hyperkalemia; E83.42 Hypomagnesemia; D50.9 Iron deficiency anemia, unspecified; K52.9 Noninfective gastroenteritis and colitis, unspecified; E86.0 Dehydration; I95.9 Hypotension, unspecified; Z79.899 Other long term (current) drug therapy; Z79.82 Long term (current) use of aspirin; Z86.16 Personal history of COVID-19

== ENCOUNTER → 2022-04-03 | Outpatient (REF) | payer MEDICARE ==
[~2022-04-03] MED LIST changes: +ADV100INH INH; +CEFU50TA PO; -MEGE40TA PO; +MEGE40TA3 PO; +NYST1POW9 TOP
[2022-04-03 12:52] LABS: HEMATOCRIT 26.9 % (36.0-47.0); HEMOGLOBIN 7.7 g/dl (12.0-15.5); MEAN CORPUSCULAR HEMOGLOBIN 29.3 pg (27.0-33.0); MEAN CORPUSCULAR HGB CONC 28.6 g/dl (32.0-36.5); MEAN CORPUSCULAR VOLUME 102.3 fl (80.0-96.0); PLATELET COUNT, AUTOMATED 447 10^3/uL (150-450); RED BLOOD COUNT 2.63 10^6/uL (4.00-5.40); WHITE BLOOD COUNT 10.4 10^3/uL (4.0-10.0)
[2022-04-03 12:53] LABS: BASO # 0.1 10^3/uL (0.0-0.2); BASO % 0.7 % (0.0-1.0); EOS # 0.3 10^3/uL (0.0-0.5); EOS % 2.7 % (0.0-3.0); LYMPH # 1.8 10^3/uL (1.5-5.0); LYMPH % 17.1 % (24.0-44.0); MONO # 0.6 10^3/uL (0.0-0.8); MONO % 5.4 % (2.0-8.0); NEUTROPHILS # 7.6 10^3/uL (1.5-8.5)
[2022-04-03 13:41] LABS: ALBUMIN 2.8 GM/DL (3.2-5.2); BILIRUBIN,TOTAL 0.3 MG/DL (0.2-1.0); CALCIUM LEVEL 8.8 MG/DL (8.8-10.2); CREATININE FOR GFR 1.06 MG/DL (0.55-1.30); GLOMERULAR FILTRATION RATE 55.4 (>45); MAGNESIUM LEVEL 2.2 MG/DL (1.8-2.4); PERCENT SATURATION 50.9 % (13.2-45.0); POTASSIUM SERUM 4.3 MEQ/L (3.5-5.1); TOTAL PROTEIN 6.6 GM/DL (6.4-8.2)
[2022-04-03 14:13] LABS: TOTAL 25(OH) VITAMIN D 38.1 NG/ML (30.0-100.0)
== END ==
LOC: M SFHCADAM 08:59
PROVIDERS: ATTEND Physician Assistant Medical
DX: D50.9 Iron deficiency anemia, unspecified (principal); N18.31 Chronic kidney disease, stage 3a; E55.9 Vitamin D deficiency, unspecified; E83.42 Hypomagnesemia

== ENCOUNTER → 2022-06-11 | Outpatient (REF) | payer MEDICARE ==
[2022-06-11 16:59] LABS: BASO # 0.1 10^3/uL (0.0-0.2); BASO % 0.7 % (0.0-1.0); EOS # 0.4 10^3/uL (0.0-0.5); EOS % 3.7 % (0.0-3.0); HEMATOCRIT 34.6 % (36.0-47.0); HEMOGLOBIN 9.5 g/dl (12.0-15.5); LYMPH # 1.5 10^3/uL (1.5-5.0); LYMPH % 14.1 % (24.0-44.0); MEAN CORPUSCULAR HEMOGLOBIN 25.5 pg (27.0-33.0); MEAN CORPUSCULAR HGB CONC 27.5 g/dl (32.0-36.5); MEAN CORPUSCULAR VOLUME 92.8 fl (80.0-96.0); MONO # 0.6 10^3/uL (0.0-0.8); MONO % 5.1 % (2.0-8.0); NEUTROPHILS # 8.1 10^3/uL (1.5-8.5); PLATELET COUNT, AUTOMATED 506 10^3/uL (150-450); RED BLOOD COUNT 3.73 10^6/uL (4.00-5.40); WHITE BLOOD COUNT 10.7 10^3/uL (4.0-10.0)
[2022-06-11 17:00] LABS: TOTAL IRON BINDING CAPACITY 404 UG/DL (250-425)
[2022-06-11 17:01] LABS: ALBUMIN 3.2 G/DL (3.2-5.2); ALKALINE PHOSPHATASE 99 U/L (46-116); ALT/SGPT 9 U/L (7.0-40); AST/SGOT 20 U/L (<34); BILIRUBIN,TOTAL 0.3 MG/DL (0.3-1.2); BLOOD UREA NITROGEN 10 MG/DL (9-23); CALCIUM LEVEL 9.4 MG/DL (8.3-10.6); CARBON DIOXIDE LEVEL 28 MMOL/L (20-31); CHLORIDE LEVEL 104 MMOL/L (98-107); CREATININE FOR GFR 0.93 MG/DL (0.55-1.30); GLOMERULAR FILTRATION RATE > 60.0 (>45); GLUCOSE, FASTING 79 MG/DL (74-106); IRON (FE) 395 UG/DL (50-170); MAGNESIUM LEVEL 2.1 MG/DL (1.8-2.4); PERCENT SATURATION 97.8 % (13.2-45.0); POTASSIUM SERUM 4.5 MMOL/L (3.5-5.1); SODIUM LEVEL 140 MMOL/L (136-145); TOTAL PROTEIN 7.4 G/DL (5.7-8.2)
[2022-06-11 17:07] LABS: FERRITIN 24.9 NG/ML (7.3-270.7); VITAMIN B12 LEVEL 455 PG/ML (211-911)
[2022-06-11 17:08] LABS: THYROID STIMULATING HORMONE 2.649 uIU/ML (0.55-4.78)
[2022-06-11 17:09] LABS: FOLATE 7.3 NG/ML (>5.4)
[2022-06-11 20:56] LABS: TOTAL 25(OH) VITAMIN D 43.7 NG/ML (20.0-100.0)
== END ==
LOC: M SFHCADAM 11:13
PROVIDERS: ATTEND Physician Assistant Medical
DX: D50.9 Iron deficiency anemia, unspecified (principal); E55.9 Vitamin D deficiency, unspecified; E83.42 Hypomagnesemia; E07.9 Disorder of thyroid, unspecified

== ENCOUNTER 2022-06-29 18:43 | Inpatient (IN) | payer MEDICARE ==
[~2022-06-29] VITALS: Ht 162.6 cm; Wt 73.2 kg
[2022-06-29] MEDS ORDERED: ALBUTEROL SULFATE 2.5MG/0.5ML INH NEB SOLN NEB ONE (20:10)
[2022-06-29] MEDS ORDERED: IPRATROPIUM 0.5MG/ALBUTEROL 2.5MG INH SOL UD 3ML (DUONEB) NEB ONE ×2 (20:10)
[2022-06-29] MEDS ORDERED: methylPREDNISolone 125MG 2ML VIAL IV ONE (20:15)
[2022-06-29 20:54] LABS: BASO % 0.1 % (0.0-1.0); EOS % 0.1 % (0.0-3.0); HEMATOCRIT 28.4 % (36.0-47.0); HEMOGLOBIN 7.9 g/dl (12.0-15.5); LYMPH # 0.8 10^3/uL (1.5-5.0); LYMPH % 8.8 % (24.0-44.0); MEAN CORPUSCULAR HEMOGLOBIN 24.7 pg (27.0-33.0); MEAN CORPUSCULAR HGB CONC 27.8 g/dl (32.0-36.5); MEAN CORPUSCULAR VOLUME 88.8 fl (80.0-96.0); MONO # 0.4 10^3/uL (0.0-0.8); MONO % 4.6 % (2.0-8.0); NEUTROPHILS # 7.8 10^3/uL (1.5-8.5); NEUTROPHILS % 84.5 % (36.0-66.0); PLATELET COUNT, AUTOMATED 301 10^3/uL (150-450); WHITE BLOOD COUNT 9.2 10^3/uL (4.0-10.0)
[2022-06-29 21:09] LABS: INR 0.98; PROTHROMBIN TIME 13.2 SECONDS (12.5-14.5)
[2022-06-29 21:10] LABS: PARTIAL THROMBOPLASTIN TIME 27.2 SECONDS (24.8-34.2)
[2022-06-29 21:19] LABS: ALBUMIN 2.8 G/DL (3.2-5.2); ALKALINE PHOSPHATASE 75 U/L (46-116); ALT/SGPT < 9 U/L (7.0-40); AST/SGOT 36 U/L (<34); BILIRUBIN,DIRECT 0.1 MG/DL (<0.4); BILIRUBIN,TOTAL 0.3 MG/DL (0.3-1.2); BLOOD UREA NITROGEN 18 MG/DL (9-23); CARBON DIOXIDE LEVEL 24 MMOL/L (20-31); CHLORIDE LEVEL 103 MMOL/L (98-107); CREATININE FOR GFR 1.09 MG/DL (0.55-1.30); GLOMERULAR FILTRATION RATE 53.6 (>45); GLUCOSE, FASTING 100 MG/DL (74-106); POTASSIUM SERUM 4.1 MMOL/L (3.5-5.1); SODIUM LEVEL 138 MMOL/L (136-145); TOTAL PROTEIN 6.8 G/DL (5.7-8.2)
[2022-06-29] MEDS ORDERED: AUGMENTIN 875 MG TAB PO ONE (22:15)
[2022-06-29] MEDS ORDERED: HOME MED LIST COMPLETE! XX SCH (23:05)
[2022-06-29 23:24] LABS: ABG BASE EXCESS -2.6 (-2.0-2.0); ABG O2 SATURATION 96.4 % (95.0-99.0); ABG PARTIAL PRESSURE CO2 31.6 mmHg (35.0-45.0); ABG PARTIAL PRESSURE O2 82.7 mmHg (75.0-100.0); ABG STANDARD HCO3 22.3 MEQ/L (22.0-26.0); ABG pH (ARTERIAL) 7.441 UNITS (7.350-7.450)
[2022-06-29] MEDS ORDERED: ACETAMINOPHEN TAB 650MG DOSE (2X325MG) PO PRN (23:50)
[2022-06-30] VITALS (7 sets, daily range): BP systolic 112–131; BP diastolic 55–69; O2SAT 92–94
[2022-06-30] MEDS ORDERED: ALBUTEROL 90 MCG/ACT 8GM HFA INHALER INH PRN (00:30)
[2022-06-30] MEDS ORDERED: DOXYCYCLINE HYCLATE 100 MG in D5W MINI-BAG PLUS 100 ML IV SCH (01:00)
[2022-06-30 01:04] LABS: HEMATOCRIT 26.2 % (36.0-47.0); HEMOGLOBIN 7.5 g/dl (12.0-15.5); MEAN CORPUSCULAR HEMOGLOBIN 25.2 pg (27.0-33.0); MEAN CORPUSCULAR HGB CONC 28.6 g/dl (32.0-36.5); MEAN CORPUSCULAR VOLUME 87.9 fl (80.0-96.0); PLATELET COUNT, AUTOMATED 267 10^3/uL (150-450); RED BLOOD COUNT 2.98 10^6/uL (4.00-5.40); WHITE BLOOD COUNT 7.6 10^3/uL (4.0-10.0)
[2022-06-30 01:20] LABS: INR 1.03; PROTHROMBIN TIME 13.7 SECONDS (12.5-14.5)
[2022-06-30 01:21] LABS: PARTIAL THROMBOPLASTIN TIME 27.5 SECONDS (24.8-34.2)
[2022-06-30 01:24] LABS: D-DIMER QUANT 2670.02 ng/ml (<500)
[2022-06-30 01:28] LABS: ALBUMIN 2.6 G/DL (3.2-5.2); ALKALINE PHOSPHATASE 72 U/L (46-116); ALT/SGPT 9 U/L (7.0-40); AST/SGOT 31 U/L (<34); BILIRUBIN,DIRECT 0.1 MG/DL (<0.4); BILIRUBIN,TOTAL 0.2 MG/DL (0.3-1.2); BLOOD UREA NITROGEN 17 MG/DL (9-23); CALCIUM LEVEL 7.9 MG/DL (8.3-10.6); CARBON DIOXIDE LEVEL 23 MMOL/L (20-31); CHLORIDE LEVEL 102 MMOL/L (98-107); CREATININE FOR GFR 0.97 MG/DL (0.55-1.30); GLOMERULAR FILTRATION RATE > 60.0 (>45); GLUCOSE, FASTING 128 MG/DL (74-106); MAGNESIUM LEVEL 1.9 MG/DL (1.8-2.4); POTASSIUM SERUM 4.2 MMOL/L (3.5-5.1); SODIUM LEVEL 137 MMOL/L (136-145); TOTAL PROTEIN 6.7 G/DL (5.7-8.2)
[2022-06-30 01:30] LABS: FERRITIN 84.4 NG/ML (7.3-270.7)
[2022-06-30 01:42] LABS: ATYPICAL LYMPH 2 % (0-5); LYMPHOCYTES 2 % (16-44); MONOCYTES 2 % (0-5); NEUTROPHILS 91 % (28-66)
[2022-06-30 01:43] LABS: ANISOCYTOSIS 2+; HYPOCHROMASIA 3+; PLATELET ESTIMATE NORMAL (NORMAL)
[2022-06-30 01:45] LABS: MICROCYTOSIS 1+
[2022-06-30 01:46] LABS: POIKILOCYTOSIS 1+; POLYCHROMASIA 1+
[2022-06-30 01:47] LABS: OVALOCYTES 1+
[2022-06-30] MEDS: cefTRIAXone SOD 2 GM in D5W MINI-BAG PLUS 50 ML IV SCH (03:06)
[2022-06-30] MEDS ORDERED: REMDESIVIR 200 MG in NS 250 ML IV ONE (04:00)
[2022-06-30] MEDS ORDERED: SODIUM CHLORIDE 0.9% INJ 10 ML SYR IV ONE (06:00)
[2022-06-30] MEDS: LEVOTHYROXINE 62.5MCG PER 1/2 TAB (0.0625MG) PO SCH (07:37)
[2022-06-30 07:44] LABS: HEMATOCRIT 24.6 % (36.0-47.0); MEAN CORPUSCULAR HGB CONC 28.5 g/dl (32.0-36.5); MEAN CORPUSCULAR VOLUME 87.9 fl (80.0-96.0); PLATELET COUNT, AUTOMATED 253 10^3/uL (150-450); WHITE BLOOD COUNT 6.5 10^3/uL (4.0-10.0)
[2022-06-30 08:08] LABS: PERCENT SATURATION 2.8 % (13.2-45.0)
[2022-06-30 08:09] LABS: BLOOD UREA NITROGEN 17 MG/DL (9-23); CALCIUM LEVEL 8.3 MG/DL (8.3-10.6); CARBON DIOXIDE LEVEL 25 MMOL/L (20-31); CHLORIDE LEVEL 105 MMOL/L (98-107); CREATININE FOR GFR 0.89 MG/DL (0.55-1.30); GLOMERULAR FILTRATION RATE > 60.0 (>45); GLUCOSE, FASTING 138 MG/DL (74-106); POTASSIUM SERUM 4.6 MMOL/L (3.5-5.1); SODIUM LEVEL 139 MMOL/L (136-145)
[2022-06-30] MEDS ORDERED: POTASSIUM CHLORIDE 10MEQ SR TABLET PO SCH (09:00)
[2022-06-30] MEDS: MAGNESIUM OXIDE 400MG TAB (MAG-OX) PO SCH ×2 (09:04→20:49)
[2022-06-30] MEDS: ASPIRIN 81MG CHEW TABLET PO SCH (09:04)
[2022-06-30] MEDS: ATORVASTATIN 20 MG TAB PO SCH (09:04)
[2022-06-30] MEDS: FERROUS SULFATE 325MG TAB PO SCH ×2 (09:04→20:49)
[2022-06-30] MEDS: DOXYCYCLINE HYCLATE 100MG TABLET PO SCH ×2 (10:56→20:50)
[2022-06-30] MEDS: MEGESTROL 40MG TAB PO SCH ×2 (10:56→20:49)
[2022-06-30] MEDS: COMBIVENT RESPIMAT 100-20MCG INHALER 4GM INH SCH (20:00)
[2022-06-30 22:50] LABS: HEMATOCRIT 27.7 % (36.0-47.0); HEMOGLOBIN 8.2 g/dl (12.0-15.5); MEAN CORPUSCULAR HEMOGLOBIN 25.9 pg (27.0-33.0); MEAN CORPUSCULAR HGB CONC 29.6 g/dl (32.0-36.5); MEAN CORPUSCULAR VOLUME 87.4 fl (80.0-96.0); PLATELET COUNT, AUTOMATED 311 10^3/uL (150-450); RED BLOOD COUNT 3.17 10^6/uL (4.00-5.40); WHITE BLOOD COUNT 17.8 10^3/uL (4.0-10.0)
[2022-07-01 02:00] VITALS: O2SAT 92
[2022-07-01] MEDS: cefTRIAXone SOD 2 GM in D5W MINI-BAG PLUS 50 ML IV SCH (02:00)
[2022-07-01] MEDS ORDERED: guaiFENesin SYRUP 200MG 10ML UDC PO PRN (02:15)
[2022-07-01] MEDS: NYSTATIN 100,000 UNITS/GM TOPICAL PWD 15GM TOP SCH ×3 (03:02→20:05)
[2022-07-01 06:00] VITALS: BP 127/70; O2SAT 90
[2022-07-01] MEDS: LEVOTHYROXINE 62.5MCG PER 1/2 TAB (0.0625MG) PO SCH (06:22)
[2022-07-01] MEDS: REMDESIVIR 100 MG in NS 250 ML IV SCH (06:22)
[2022-07-01 06:30] LABS: HEMATOCRIT 28.4 % (36.0-47.0); HEMOGLOBIN 8.4 g/dl (12.0-15.5); MEAN CORPUSCULAR HGB CONC 29.6 g/dl (32.0-36.5); MEAN CORPUSCULAR VOLUME 87.9 fl (80.0-96.0); PLATELET COUNT, AUTOMATED 318 10^3/uL (150-450); RED BLOOD COUNT 3.23 10^6/uL (4.00-5.40); WHITE BLOOD COUNT 17.4 10^3/uL (4.0-10.0)
[2022-07-01 06:55] LABS: ALBUMIN 2.5 G/DL (3.2-5.2); ALKALINE PHOSPHATASE 63 U/L (46-116); ALT/SGPT < 9 U/L (7.0-40); AST/SGOT 28 U/L (<34); BILIRUBIN,TOTAL 0.2 MG/DL (0.3-1.2); BLOOD UREA NITROGEN 25 MG/DL (9-23); CALCIUM LEVEL 8.5 MG/DL (8.3-10.6); CARBON DIOXIDE LEVEL 26 MMOL/L (20-31); CHLORIDE LEVEL 104 MMOL/L (98-107); CREATININE FOR GFR 0.86 MG/DL (0.55-1.30); GLOMERULAR FILTRATION RATE > 60.0 (>45); GLUCOSE, FASTING 117 MG/DL (74-106); POTASSIUM SERUM 4.3 MMOL/L (3.5-5.1); SODIUM LEVEL 138 MMOL/L (136-145); TOTAL PROTEIN 6.5 G/DL (5.7-8.2)
[2022-07-01] MEDS: SODIUM CHLORIDE 0.9% INJ 10 ML SYR IV SCH (07:51)
[2022-07-01] MEDS: MEGESTROL 40MG TAB PO SCH ×2 (08:35→20:05)
[2022-07-01] MEDS: ATORVASTATIN 20 MG TAB PO SCH (08:35)
[2022-07-01] MEDS: FERROUS SULFATE 325MG TAB PO SCH ×2 (08:35→20:05)
[2022-07-01] MEDS: DOXYCYCLINE HYCLATE 100MG TABLET PO SCH ×2 (08:35→20:05)
[2022-07-01] MEDS: MAGNESIUM OXIDE 400MG TAB (MAG-OX) PO SCH ×2 (08:35→20:05)
[2022-07-01] MEDS: ASPIRIN 81MG CHEW TABLET PO SCH (08:35)
[2022-07-01] MEDS: COMBIVENT RESPIMAT 100-20MCG INHALER 4GM INH SCH ×2 (08:40→20:34)
[2022-07-01 15:00] VITALS: BP 124/60
[2022-07-01 15:31] VITALS: O2SAT 92
[2022-07-01 20:36] VITALS: O2SAT 94
[2022-07-01 21:00] VITALS: BP 126/61
[2022-07-02] MEDS: cefTRIAXone SOD 2 GM in D5W MINI-BAG PLUS 50 ML IV SCH (02:13)
[2022-07-02] MEDS: REMDESIVIR 100 MG in NS 250 ML IV SCH (05:36)
[2022-07-02] MEDS: LEVOTHYROXINE 62.5MCG PER 1/2 TAB (0.0625MG) PO SCH (05:36)
[2022-07-02 05:40] VITALS: BP 137/69
[2022-07-02 06:11] LABS: HEMATOCRIT 27.3 % (36.0-47.0); HEMOGLOBIN 8.2 g/dl (12.0-15.5); MEAN CORPUSCULAR HEMOGLOBIN 26.3 pg (27.0-33.0); MEAN CORPUSCULAR VOLUME 87.5 fl (80.0-96.0); PLATELET COUNT, AUTOMATED 358 10^3/uL (150-450); RED BLOOD COUNT 3.12 10^6/uL (4.00-5.40); WHITE BLOOD COUNT 16.6 10^3/uL (4.0-10.0)
[2022-07-02 06:36] LABS: ALBUMIN 2.2 G/DL (3.2-5.2); ALKALINE PHOSPHATASE 63 U/L (46-116); ALT/SGPT < 9 U/L (7.0-40); AST/SGOT 30 U/L (<34); BILIRUBIN,TOTAL 0.2 MG/DL (0.3-1.2); BLOOD UREA NITROGEN 30 MG/DL (9-23); CALCIUM LEVEL 8.1 MG/DL (8.3-10.6); CARBON DIOXIDE LEVEL 26 MMOL/L (20-31); CHLORIDE LEVEL 106 MMOL/L (98-107); CREATININE FOR GFR 0.83 MG/DL (0.55-1.30); GLOMERULAR FILTRATION RATE > 60.0 (>45); GLUCOSE, FASTING 134 MG/DL (74-106); POTASSIUM SERUM 4.3 MMOL/L (3.5-5.1); SODIUM LEVEL 140 MMOL/L (136-145); TOTAL PROTEIN 5.9 G/DL (5.7-8.2)
[2022-07-02] MEDS: COMBIVENT RESPIMAT 100-20MCG INHALER 4GM INH SCH (06:46)
[2022-07-02] MEDS: SODIUM CHLORIDE 0.9% INJ 10 ML SYR IV SCH (06:55)
[2022-07-02] MEDS: NYSTATIN 100,000 UNITS/GM TOPICAL PWD 15GM TOP SCH (08:04)
[2022-07-02] MEDS: ASPIRIN 81MG CHEW TABLET PO SCH (08:05)
[2022-07-02] MEDS: ATORVASTATIN 20 MG TAB PO SCH (08:05)
[2022-07-02] MEDS: MEGESTROL 40MG TAB PO SCH (08:05)
[2022-07-02] MEDS: DOXYCYCLINE HYCLATE 100MG TABLET PO SCH (08:05)
[2022-07-02] MEDS: FERROUS SULFATE 325MG TAB PO SCH (08:05)
[2022-07-02] MEDS: MAGNESIUM OXIDE 400MG TAB (MAG-OX) PO SCH (08:05)
[2022-07-02] MEDS ORDERED: DOXY100T27 PO (10:13)
[2022-07-02] MEDS ORDERED: CEFD300C41 PO (10:13)
[2022-07-02] MEDS ORDERED: BACI1CAP PO (10:13)
[2022-07-02] MEDS ORDERED: PRED10TA2 PO (10:13)
[2022-07-02] MEDS ORDERED: ALBU6.7H6 INH (10:13)
[2022-07-02] MEDS ORDERED: NIRM1TAB PO (10:13)
[2022-07-02] MEDS ORDERED: FLUT11IN INH (10:13)
[2022-07-02 11:00] VITALS: O2SAT 96
[2022-07-02 12:32] VITALS: O2SAT 87
== END 2022-07-02 14:30 | disposition home health service (06) | DRG 177 ==
LOC: EDBD 18:43 → M ED 18:43 → M ED INP 23:38 → ENRESERV 06-30 12:42 → M MSPAV 06-30 13:43
PROVIDERS: ADMIT Family Medicine; ATTEND General Practice
DX: U07.1 COVID-19 (principal); J96.01 Acute respiratory failure with hypoxia; J12.82 Pneumonia due to coronavirus disease 2019; J15.9 Unspecified bacterial pneumonia; J44.0 Chronic obstructive pulmonary disease with (acute) lower respiratory infection; J44.1 Chronic obstructive pulmonary disease with (acute) exacerbation; I10 Essential (primary) hypertension; E03.9 Hypothyroidism, unspecified; E78.5 Hyperlipidemia, unspecified; F32.A Depression, unspecified; D50.9 Iron deficiency anemia, unspecified; Z86.73 Personal history of transient ischemic attack (TIA), and cerebral infarction without residual deficits; N93.8 Other specified abnormal uterine and vaginal bleeding; Z79.899 Other long term (current) drug therapy; Z79.82 Long term (current) use of aspirin

== ENCOUNTER → 2022-07-12 | Outpatient (CLI) | payer MEDICARE ==
[~2022-07-12] MED LIST changes: +ALBU6.7H6 INH; +BACI1CAP PO; +CEFD300C41 PO; +DOXY100T27 PO; +FLUT11IN INH; +NIRM1TAB PO; +PRED10TA2 PO
== END ==
LOC: M ADAMS 13:39
PROVIDERS: ATTEND Family Medicine
DX: U07.1 COVID-19 (principal); J15.212 Pneumonia due to Methicillin resistant Staphylococcus aureus

== ENCOUNTER → 2022-07-12 | Outpatient (REF) | payer MEDICARE ==
[2022-07-12 15:27] LABS: HEMATOCRIT 30.3 % (36.0-47.0); HEMOGLOBIN 8.5 g/dl (12.0-15.5); MEAN CORPUSCULAR HEMOGLOBIN 25.4 pg (27.0-33.0); MEAN CORPUSCULAR HGB CONC 28.1 g/dl (32.0-36.5); MEAN CORPUSCULAR VOLUME 90.7 fl (80.0-96.0); PLATELET COUNT, AUTOMATED 465 10^3/uL (150-450); RED BLOOD COUNT 3.34 10^6/uL (4.00-5.40); WHITE BLOOD COUNT 16.6 10^3/uL (4.0-10.0)
[2022-07-12 15:56] LABS: BLOOD UREA NITROGEN 13 MG/DL (9-23); CALCIUM LEVEL 8.7 MG/DL (8.3-10.6); CARBON DIOXIDE LEVEL 26 MMOL/L (20-31); CHLORIDE LEVEL 106 MMOL/L (98-107); CREATININE FOR GFR 0.92 MG/DL (0.55-1.30); GLOMERULAR FILTRATION RATE > 60.0 (>45); GLUCOSE, FASTING 80 MG/DL (74-106); SODIUM LEVEL 139 MMOL/L (136-145)
== END ==
LOC: M SFHCADAM 13:29
PROVIDERS: ATTEND Family Medicine
DX: N95.0 Postmenopausal bleeding (principal); R60.0 Localized edema

== ENCOUNTER → 2022-08-14 | Outpatient (REF) | payer MEDICARE ==
[~2022-08-14] MED LIST changes: +FERR1TAB8 PO; +FURO40TA2 PO; +LEVO1TAB40 PO; +MEDR5TAB3 PO
[2022-08-14 16:17] LABS: BASO # 0.1 10^3/uL (0.0-0.2); BASO % 0.9 % (0.0-1.0); EOS # 0.4 10^3/uL (0.0-0.5); EOS % 4.1 % (0.0-3.0); HEMATOCRIT 34.9 % (36.0-47.0); HEMOGLOBIN 9.7 g/dl (12.0-15.5); LYMPH # 1.5 10^3/uL (1.5-5.0); LYMPH % 16.1 % (24.0-44.0); MEAN CORPUSCULAR HEMOGLOBIN 24.9 pg (27.0-33.0); MEAN CORPUSCULAR HGB CONC 27.8 g/dl (32.0-36.5); MEAN CORPUSCULAR VOLUME 89.7 fl (80.0-96.0); MONO # 0.6 10^3/uL (0.0-0.8); MONO % 6.9 % (2.0-8.0); NEUTROPHILS # 6.5 10^3/uL (1.5-8.5); NEUTROPHILS % 71.5 % (36.0-66.0); PLATELET COUNT, AUTOMATED 419 10^3/uL (150-450); RED BLOOD COUNT 3.89 10^6/uL (4.00-5.40); WHITE BLOOD COUNT 9.1 10^3/uL (4.0-10.0)
[2022-08-14 16:44] LABS: IRON (FE) 21 UG/DL (50-170); THYROID STIMULATING HORMONE 1.957 uIU/ML (0.55-4.78); TOTAL IRON BINDING CAPACITY 350 UG/DL (250-425)
[2022-08-14 16:45] LABS: TOTAL 25(OH) VITAMIN D 42.4 NG/ML (20.0-100.0)
[2022-08-14 16:47] LABS: ALKALINE PHOSPHATASE 102 U/L (46-116); ALT/SGPT 10 U/L (7.0-40); AST/SGOT 21 U/L (<34); BILIRUBIN,TOTAL 0.4 MG/DL (0.3-1.2); BLOOD UREA NITROGEN 9 MG/DL (9-23); CALCIUM LEVEL 9.3 MG/DL (8.3-10.6); CARBON DIOXIDE LEVEL 27 MMOL/L (20-31); CHLORIDE LEVEL 108 MMOL/L (98-107); CHOLESTEROL LEVEL 112 MG/DL (<200); CHOLESTEROL RISK RATIO 2.85 (<5); GLOMERULAR FILTRATION RATE > 60.0 (>45); GLUCOSE, FASTING 76 MG/DL (74-106); HDL CHOLESTEROL 39.2 MG/DL (>40); LDL CHOLESTEROL 55.4 MG/DL (<100); NON-HDL-C 72.8 MG/DL; POTASSIUM SERUM 3.9 MMOL/L (3.5-5.1); SODIUM LEVEL 143 MMOL/L (136-145); TOTAL PROTEIN 6.9 G/DL (5.7-8.2); TRIGLYCERIDES LEVEL 87 MG/DL (<150)
== END ==
LOC: M SFHCADAM 11:27
PROVIDERS: ATTEND Physician Assistant Medical
DX: N95.0 Postmenopausal bleeding (principal); E66.01 Morbid (severe) obesity due to excess calories; I63.9 Cerebral infarction, unspecified; R93.89 Abnormal findings on diagnostic imaging of other specified body structures; D50.0 Iron deficiency anemia secondary to blood loss (chronic)

== ENCOUNTER → 2022-10-04 | Outpatient (REF) | payer MEDICARE ==
[2022-10-04 13:45] LABS: BASO # 0.1 10^3/uL (0.0-0.2); BASO % 0.6 % (0.0-1.0); EOS # 0.2 10^3/uL (0.0-0.5); EOS % 2.1 % (0.0-3.0); HEMATOCRIT 37.3 % (36.0-47.0); HEMOGLOBIN 10.9 g/dl (12.0-15.5); LYMPH # 1.6 10^3/uL (1.5-5.0); LYMPH % 21.1 % (24.0-44.0); MEAN CORPUSCULAR HGB CONC 29.2 g/dl (32.0-36.5); MEAN CORPUSCULAR VOLUME 92.3 fl (80.0-96.0); MONO # 0.5 10^3/uL (0.0-0.8); MONO % 6.9 % (2.0-8.0); NEUTROPHILS # 5.3 10^3/uL (1.5-8.5); PLATELET COUNT, AUTOMATED 346 10^3/uL (150-450); RED BLOOD COUNT 4.04 10^6/uL (4.00-5.40); WHITE BLOOD COUNT 7.7 10^3/uL (4.0-10.0)
[2022-10-04 14:00] LABS: INR 0.98; PROTHROMBIN TIME 13.2 SECONDS (12.5-14.5)
== END ==
LOC: M SFHCADAM 09:44
PROVIDERS: ATTEND Physician Assistant Medical
DX: R91.1 Solitary pulmonary nodule (principal)

== ENCOUNTER → 2022-10-10 | Outpatient (CLI) | payer MEDICARE ==
[~2022-10-10] MED LIST changes: +ACET1TAB55 PO; +HOME MED LIST COMPLETE! XX SCH; +LIDOCAINE 1% MDV 20ML VIAL As Ordered ONE; +MAGN400T2 PO; +VENTAER INH
[2022-10-10 12:00] VITALS: BP 131/63
== END ==
LOC: M IRPRO 07:57
PROVIDERS: ATTEND Obstetrics & Gynecology
DX: C34.91 Malignant neoplasm of unspecified part of right bronchus or lung (principal); C54.1 Malignant neoplasm of endometrium

== ENCOUNTER → 2022-12-02 | Outpatient (CLI) | payer MEDICARE ==
[~2022-12-02] MED LIST changes: +BENZ200C70 PO; +FLUO10CA18 PO; -FLUT11IN INH; +FLUT12AE6 INH; -HOME MED LIST COMPLETE! XX SCH; -LIDOCAINE 1% MDV 20ML VIAL As Ordered ONE
== END ==
LOC: M PLARAD 12:38
PROVIDERS: ATTEND Internal Medicine Hematology & Oncology
DX: C54.1 Malignant neoplasm of endometrium (principal)
CPT/HCPCS: 78815; A9552

== ENCOUNTER → 2022-12-23 | Outpatient (REF) | payer MEDICARE, BC ==
[2022-12-23 13:27] LABS: INR 0.94; PROTHROMBIN TIME 12.8 SECONDS (12.5-14.5)
== END ==
LOC: M LABDRWAD 13:04
PROVIDERS: ATTEND Internal Medicine Hematology & Oncology
DX: C54.1 Malignant neoplasm of endometrium (principal)

== ENCOUNTER → 2022-12-27 | Outpatient (CLI) | payer MEDICARE ==
[~2022-12-27] VITALS: Ht 160 cm; Wt 69.0 kg
[~2022-12-27] MED LIST changes: +LIDOCAINE W/EPINEPHRINE 1% 20ML VIAL As Ordered ONE; +MIDAZOLAM INJ 2MG/2ML VIAL As Ordered ONE; +ceFAZolin 2 GM/D5W 50 ML IV BAG As Ordered ONE; +fentaNYL 100 MCG/2 ML INJECTION As Ordered ONE
[2022-12-27 09:25] VITALS: TEMP 98.9
[2022-12-27 13:45] VITALS: BP 121/67; O2SAT 96
== END ==
LOC: M IRPRO 09:08
PROVIDERS: ATTEND Internal Medicine Hematology & Oncology
DX: C54.1 Malignant neoplasm of endometrium (principal)
CPT/HCPCS: 36561; 99152; 99153; J0690; J2250; J3010

== ENCOUNTER → 2023-01-20 | Outpatient (CLI) | payer MEDICARE ==
[~2023-01-20] MED LIST changes: -LIDOCAINE W/EPINEPHRINE 1% 20ML VIAL As Ordered ONE; -MIDAZOLAM INJ 2MG/2ML VIAL As Ordered ONE; -ceFAZolin 2 GM/D5W 50 ML IV BAG As Ordered ONE; -fentaNYL 100 MCG/2 ML INJECTION As Ordered ONE
== END ==
LOC: M CARPUL 12:56
PROVIDERS: ATTEND Internal Medicine Hematology & Oncology
DX: Z01.818 Encounter for other preprocedural examination (principal)

== ENCOUNTER 2023-06-10 07:23 | Outpatient (CLI) | payer MEDICARE ==
[~2023-06-10 07:23] MED LIST changes: +CALC500C14 PO; +CEFD1CAP9 PO; -CEFD300C41 PO; +GABA-282 PO; +ONDA8TAB8 PO; +POTA8CAP10 PO; +PROC10TA5 PO; +SODIUM CHLORIDE 0.9% INJ 10 ML SYR IV PRN
[2023-06-10] MEDS ORDERED: NS 250 ML IV ONE (08:00)
[2023-06-10] MEDS ORDERED: diphenhydrAMINE 25MG CAP PO ONE (08:00)
[2023-06-10] MEDS ORDERED: ACETAMINOPHEN TAB 650MG DOSE (2X325MG) PO ONE (08:00)
[2023-06-10 08:16] VITALS: BP 108/57; TEMP 98.6; O2SAT 98
[2023-06-10 08:30] VITALS: BP 109/66; TEMP 98.5; O2SAT 96
[2023-06-10 08:31] VITALS: BP 116/66; TEMP 98.3; O2SAT 99
[2023-06-10] MEDS ORDERED: SODIUM CHLORIDE 0.9% INJ 10 ML SYR IV SCH (09:00)
[2023-06-10 10:40] VITALS: BP 111/56; TEMP 98.4; O2SAT 98
[2023-06-10 10:43] VITALS: BP 111/56; TEMP 98.4; O2SAT 98
[2023-06-10 12:10] VITALS: BP 129/60; TEMP 98.6; O2SAT 93
== END 2023-06-10 12:18 ==
LOC: M INFU 07:23
PROVIDERS: ATTEND Nurse Practitioner
DX: C54.1 Malignant neoplasm of endometrium (principal)
CPT/HCPCS: 36430; P9016

== ENCOUNTER → 2023-07-07 | Outpatient (CLI) | payer MEDICARE ==
[~2023-07-07] MED LIST changes: -SODIUM CHLORIDE 0.9% INJ 10 ML SYR IV PRN
== END ==
LOC: M PLARAD 13:09
PROVIDERS: ATTEND Internal Medicine Hematology & Oncology
DX: C54.1 Malignant neoplasm of endometrium (principal)
CPT/HCPCS: 78815; A9552

== ENCOUNTER → 2023-07-31 | Outpatient (CLI) | payer MEDICARE ==
[~2023-07-31] MED LIST changes: +GASTROGRAFIN SOLUTION 30ML As Ordered ONE; +ISOVUE-370 76% 100ML VIAL As Ordered ONE
== END ==
LOC: M RAD 12:36
PROVIDERS: ATTEND Nurse Practitioner
DX: K76.9 Liver disease, unspecified (principal)
CPT/HCPCS: 74177; Q9963; Q9967

== ENCOUNTER → 2023-10-06 | Outpatient (CLI) | payer MEDICARE ==
[~2023-10-06] MED LIST changes: +FLUO-290 PO; -FLUO10CA18 PO; -GASTROGRAFIN SOLUTION 30ML As Ordered ONE; -ISOVUE-370 76% 100ML VIAL As Ordered ONE
== END ==
LOC: M PLARAD 07:50
PROVIDERS: ATTEND Internal Medicine Medical Oncology
DX: C54.1 Malignant neoplasm of endometrium (principal)
CPT/HCPCS: 78815; A9552

== ENCOUNTER → 2023-10-09 | Outpatient (REF) | payer MEDICARE ==
[2023-10-09 12:54] LABS: THYROID STIMULATING HORMONE 3.682 uIU/ML (0.55-4.78)
[2023-10-09 12:55] LABS: TOTAL 25(OH) VITAMIN D 38.5 NG/ML (20.0-100.0)
== END ==
LOC: M LAB REF 10:28
PROVIDERS: ATTEND Physician Assistant Medical
DX: E03.9 Hypothyroidism, unspecified (principal)

== ENCOUNTER → 2024-02-03 | Outpatient (CLI) | payer MEDICARE ==
[~2024-02-03] MED LIST changes: +FLUO-365 PO; -FLUO20CA22 PO; +GASTROGRAFIN SOLUTION 30ML As Ordered ONE; +ISOVUE-370 76% 100ML VIAL As Ordered ONE; +ONDA-284 PO; -ONDA8TAB8 PO
== END ==
LOC: M RAD 01-22 10:52
PROVIDERS: ATTEND Internal Medicine Medical Oncology
DX: C54.1 Malignant neoplasm of endometrium (principal)
CPT/HCPCS: 71260; 74177; Q9963; Q9967

== ENCOUNTER → 2024-04-19 | Outpatient (CLI) | payer MEDICARE ==
[~2024-04-19] MED LIST changes: +ANAS1TAB2 PO; +ATOR-398 PO; +GABA-1172 PO; -GABA-282 PO; -GASTROGRAFIN SOLUTION 30ML As Ordered ONE; -LIPI80TA PO; +NYST1POW3 TOP; -NYST1POW9 TOP
== END ==
LOC: M RAD 12:37
PROVIDERS: ATTEND Internal Medicine Hematology & Oncology
DX: C54.1 Malignant neoplasm of endometrium (principal)
CPT/HCPCS: 71260; 74177; Q9967

== ENCOUNTER → 2024-05-12 | Outpatient (CLI) | payer MEDICARE ==
[~2024-05-12] MED LIST changes: -ADV100INH INH; +ADVA1AER8 INH; -ISOVUE-370 76% 100ML VIAL As Ordered ONE
== END ==
LOC: M PLARAD 08:17
PROVIDERS: ATTEND Internal Medicine Hematology & Oncology
DX: C54.1 Malignant neoplasm of endometrium (principal)
CPT/HCPCS: 78815; A9552

== ENCOUNTER → 2024-09-08 | Outpatient (CLI) | payer MEDICARE ==
[~2024-09-08] MED LIST changes: +COLA100C5 PO; +ISOVUE-370 76% 100ML VIAL ONE; +LENV10CA PO; +ONDA-84 PO
== END ==
LOC: M PLAIMG 12:44
PROVIDERS: ATTEND Internal Medicine Medical Oncology
DX: C54.1 Malignant neoplasm of endometrium (principal)
CPT/HCPCS: 71260; 74177; Q9967

== ENCOUNTER → 2024-12-06 | Outpatient (CLI) | payer MEDICARE ==
[~2024-12-06] MED LIST changes: +AZIT-12 PO; +BUDE10.32; +ISOVUE-370 76% 100 ML VIAL As Ordered ONE; -ISOVUE-370 76% 100ML VIAL ONE; +LEVO25TA5 PO; -LEVO50CA PO; +LEVO50CA2 PO
== END ==
LOC: M RAD 16:17
PROVIDERS: ATTEND Specialist
DX: C54.1 Malignant neoplasm of endometrium (principal)
CPT/HCPCS: 71260; 74177; Q9967

== ENCOUNTER → 2025-02-02 | Outpatient (CLI) | payer MEDICARE ==
[~2025-02-02] MED LIST changes: -ISOVUE-370 76% 100 ML VIAL As Ordered ONE
== END ==
LOC: M ADAMS 11:59
PROVIDERS: ATTEND Physician Assistant Medical
DX: M54.50 Low back pain, unspecified (principal)

== ENCOUNTER → 2025-02-02 | Outpatient (REF) | payer MEDICARE ==
[2025-02-02 17:48] LABS: APPEARANCE, URINE CLEAR (CLEAR); BACTERIA, URINE AUTO NEGATIVE (NEGATIVE); BILIRUBIN, URINE AUTO NEGATIVE (NEGATIVE); BLOOD, URINE BLOOD NEGATIVE (NEGATIVE); GLUCOSE, URINE (UA) AUTO NEGATIVE (NEGATIVE); KETONE, URINE AUTO NEGATIVE (NEGATIVE); LEUKOCYTE ESTERASE, URINE AUTO NEGATIVE (NEGATIVE); MUCUS, URINE SMALL (NEGATIVE); NITRITE, URINE AUTO NEGATIVE (NEGATIVE); PROTEIN, URINE AUTO NEGATIVE (NEGATIVE); RBC, URINE AUTO 1 /HPF (0-3); SPECIFIC GRAVITY URINE AUTO 1.021 (1.002-1.035); SQUAMOUS EPITHELIAL CELL UR AU 0 /HPF (0-6); UROBILINOGEN, URINE AUTO 0.2 mg/dL (0.0-2.0); WBC, URINE AUTO 3 /HPF (0-3)
[2025-02-02 18:14] LABS: CALCIUM LEVEL 8.9 MG/DL (8.3-10.6); CARBON DIOXIDE LEVEL 31 MMOL/L (20-31); CHLORIDE LEVEL 101 MMOL/L (98-107); CREATININE FOR GFR 0.72 MG/DL (0.55-1.30); GLOMERULAR FILTRATION RATE > 90.0 (>45); POTASSIUM SERUM 3.1 MMOL/L (3.5-5.1); SODIUM LEVEL 143 MMOL/L (136-145)
== END ==
LOC: M SFHCADAM 11:51
PROVIDERS: ATTEND Physician Assistant Medical
DX: E87.6 Hypokalemia (principal); M54.50 Low back pain, unspecified; R34 Anuria and oliguria

== ENCOUNTER → 2025-04-18 | Outpatient (CLI) | payer MEDICARE ==
[~2025-04-18] MED LIST changes: +DEXA4TA PO; +NEUR300C PO; +OXYC1TAB23 PO
== END ==
LOC: M RAD 14:25
PROVIDERS: ATTEND Specialist
DX: C54.1 Malignant neoplasm of endometrium (principal)

== ENCOUNTER → 2025-04-25 | Outpatient (CLI) | payer MEDICARE ==
[~2025-04-25] MED LIST changes: +ELIQ2.5T PO; +ISOVUE-370 76% 100 ML VIAL As Ordered ONE
== END ==
LOC: M RAD 14:33
PROVIDERS: ATTEND Student in an Organized Health Care Education/Training Program
DX: C54.1 Malignant neoplasm of endometrium (principal); C77.1 Secondary and unspecified malignant neoplasm of intrathoracic lymph nodes; C79.51 Secondary malignant neoplasm of bone; R91.8 Other nonspecific abnormal finding of lung field

== ENCOUNTER → 2025-05-09 | Outpatient (CLI) | payer MEDICARE ==
[~2025-05-09] MED LIST changes: -ISOVUE-370 76% 100 ML VIAL As Ordered ONE
[2025-05-09 13:12] VITALS: TEMP 98.2
[2025-05-09 13:57] LABS: INR 1.03
[2025-05-09] MEDS: LIDOCAINE 1% MDV 20 ML VIAL IM ONE (15:19)
[2025-05-09 16:45] VITALS: BP 112/61; O2SAT 95
== END ==
LOC: M IRPRO 12:59
PROVIDERS: ATTEND Specialist
DX: K76.89 Other specified diseases of liver (principal); C54.1 Malignant neoplasm of endometrium